=== PATIENT | male | born 1945 | race Caucasian/White ===

== ENCOUNTER 2016-02-29 10:00 | Outpatient (RCR) | payer MEDICARE, MEDICAID ==
[~2016-02-29 10:00] MED LIST: AC325T PO; AML2.5T PO; Amlodipine Besylate PO; CEFD300C PO; CELE200C PO; CLCX100C; CLOP75TA PO; CYCL10TA45; DCS100C PO; ENEMA RC; ENXP40I.4 SC; GABA300T PO; LORA10TA7 PO; MENT118G TP; METO100T2 PO; Metoprolol Succinate PO; NA P133E35 PR; ONDN4T PO; PRCD5U PO; PROM30SOLN PO; TR1C15 TOP; TRAM50TA2 PO
--- OUTSIDE RECORDS SUMMARY | 2016-02-29 10:34 | XMS REPORT | Continuity of Care Document ---
Author Author [facility] Organization [facility] Address Unknown Phone Unavailable Care Team Providers Care Marine Consultant Name Role Phone AMY DENNEY DO PCP Insurance Providers Payer Name Policy Number Subscriber Name Relationship Wps Medicare [id number] Amy Rios 18 Self / Same As Patient [facility] [employer] [id number] Amy Rios 18 Self / Same As Patient Advance Directives Directive Response Recorded Date/Time Advance Directives No 06/30/14 8:43am Health Care Power of Power Cutting Machine Operator No 06/30/14 8:43am Organ Donor No 06/30/14 8:43am Resuscitation Status Full Code 06/30/14 8:43am Problems Medical Problems Problem Onset Date Status Third degree heart block Unknown Active difficulty in walking and inability to get around 12/23/2013 Active Medications Medication Dose Route Sig Days/Qty Instructions Order Date Discontinued Date Status Cyclobenzaprine HCl 04/14/06 10/05/08 Discontinued Celecoxib 04/14/06 12/20/13 Discontinued Gabapentin (Neurontin) 900 Mg PO BEDTIME TAKES 3 (300MG) CAPSULES 10/05 Active Docusate Sodium 100 Mg PO DAILY 12/20/13 Active Celecoxib 200 Mg PO DAILY 12/20/13 01/11/14 Discontinued Acetaminophen 650 Mg PO GIVE EVERY 6 HR ON SCHEDULE PRN MILD PAIN 30 Qty 12/23/13 06/27/14 Discontinued [Amlodipine Besylate] 10 Mg PO DAILY 30 Qty 12/23/13 06/27/14 Discontinued Cefdinir 300 Mg PO TWICE A DAY 10 Qty 12/23/13 01/11/14 Discontinued Enoxaparin Sodium 40 Mg SC BEDTIME 30 Qty 12/23/13 01/11/14 Discontinued [Metoprolol Succinate] 100 Mg PO DAILY 30 Qty 12/23/13 06/27/14 Discontinued Celecoxib 200 Mg PO DAILY 06/27/14 Active Loratadine 10 Mg PO DAILY PRN ALLERGIES 06/27/14 Active Amlodipine Besylate 2.5 Mg PO DAILY 06/27/14 Active Metoprolol Tartrate (Lopressor) 50 Mg PO TWICE A DAY 06/27/14 Active Tramadol Hcl 50 Mg PO 0400, 1200, 2000 06/27/14 Active Acetaminophen 650 Mg PO EVERY 6 HOURS PRN PAIN TAKES 2 (325MG) TABLETS 06/27/14 Active [Enema] 1 Appful RC DAILY PRN CONSTIPATION 06/27/14 06/30/14 Discontinued Promethazine Hcl 5 Ml PO EVERY 6 HOURS PRN COUGH 06/27/14 Active Promethazine/Codeine 10 Ml PO EVERY 8HRS PRN COUGH 06/27/14 Active Ondansetron Hcl 4 Mg PO EVERY 6 HOURS PRN NAUSEA/VOMITING 06/27/14 Active Menthol TP EVERY 6 HOURS PRN PAIN APPLY TO LOWER BACK 06/27/14 Active Triamcinolone Acetonide (Kenalog 0.1% Cream) TOP NEEDED PRN RASH CANDIDIASIS OF SKIN AND NAILS 06/27/14 Active Clopidogrel Bisulfate 1 Each PO DAILY 60 Qty 06/28/14 06/30/14 Discontinued Clopidogrel Bisulfate 75 Mg PO DAILY 06/30/14 Active Sod Phosphate/Sod Biphosphate 1 Ea [place] DAILY PRN CONSTIPATION Active Social History Social History Problem Response Recorded Date/Time Alcohol Use Denies Use 12/23/2013 4:00pm Recreational Drug Use No 12/23/2013 4:00pm Recent Foreign Travel No 06/30/2014 8:45am Sexually Transmitted Disease Y CLAP AT AGE 15 12/23/2013 4:00pm Smoking Status Former Smoker 06/30/2014 8:44am Do you dip or chew tobacco? No 06/30/2014 8:44am Query Response Start Date Stop Date Smoking Status Former Smoker 06/27/2006 Hospital Discharge Instructions Patient Instructions Physician Instructions Follow Up/Plan 1. patient will follow-up with Dr. rollins's clinic in about a month. 2. Patient will need to followup with PCP 3. She wanted to fluoroscopy. Primary crm technical lead, Dr. Mae. 4. Results from ultrasound will be CC to Dr. Iniguez and also to his primary care physician CARDIAC CATH DISCHARGE INSTRUCTIONS Cardiac Rehab Please be expecting a follow up call from Cardiac Rehab within in one week. *Hold Metformin for 48 hours post heart cath. ACTIVITY * Go Home directly and rest. * Limit activity of the leg (or wrist if it was used) for 7 days including aerobics, swimming, jogging, bicycling, etc. * Restrict stair-climbing for 7 days if possible, if not, climb up with your non-cath leg, then bring together on the same step. * Avoid lifting, pushing, pulling or excessive movement of the affected extremity for 7 days. * Customary sexual activity may be resumed after 2 days-use caution not to use a position that strains or causes pain to the affected extremity. * No driving for 24 hours. * NO SMOKING. * Avoid straining for bowel movements for 7 days. * Gentle walking on level ground is allowed. * Returning to work will depend on the type of procedure and the results. Your doctor will discuss this with you. CALL YOUR DOCTOR FOR ANY OF THE FOLLOWING: *If bleeding from the puncture site occurs- Apply gentle pressure to site with clean cloth and call your doctor or EMS. * If a knot or lump forms under the skin, increases in size, or causes pain. * If bruising appears to be worsening or moving further down your leg instead of disappearing. * Temperature above 101 F. CARE OF YOUR GROIN INCISION; * Bruising or purple discoloration of the skin near the puncture site is common. * You may shower only, no bathtub bathing for 5 days. Be careful to avoid slipping as your leg may feel stiff. * If a closure device was used on your femoral artery, please see the attached guide regarding care of the device and your leg. * REMOVE the dressing from your groin the next day after your procedure in the shower. CARE OF YOUR WRIST INCISION; * Bruising or purple discoloration of the skin near the puncture site is common. * You may shower. * DO NOT submerge wrist. * Remove dressing in 24 hours. Plan of Care Discharge Date 07/01/14 3:25pm Disposition 05 XFER OTHER Instructions/Education Provided CARDIAC CATH DISCHARGE INSTRUC Forms Provided PDI Cardiac Cath Prescriptions See Medications Section Referrals AMY DENNEY DO (Unspecified) 2 Weeks Address: [address] [place] [address] [phone] Reason(s) for Referral: CALL TO MAKE APPOINTMENT: [phone] RAMANA MAE MD FACP FACC CCDS (Unspecified) 2 Weeks Address: [address] [facility], [address] [place] [address] Reason(s) for Referral: FOLLOW UP APPOINTMENT FOR RECENT PACEMAKER PLACEMENT. CALL FOR APPOINTMENT. Care Plan and Goals Return to hospital if bleeding Functional Status Query Response Date Recorded Comprehension Ability Understands Concepts July 01, 2014 8:00am Allergies, Adverse Reactions, Alerts Allergen Type Severity Reaction Status Last Updated No Known Drug Allergies Active 12/20/13 Immunizations Name Given Type Date of Pneumonia Vaccine 12/21/13 Historical Date of Influenza Vaccine 12/21/13 Historical Vital Signs Acute Vital Signs Vital Response Date/Time Temperature (Fahrenheit) 98.6 degrees F (97.6 - 99.5) Temperature (Calculated Celsius) 37.64070 degrees C (36.4 - 37.5) Temperature Source Temporal Pulse Rate (adult) 64 bpm (60 - 90) Respiratory Rate 18 bpm (12 - 24) O2 Sat by Pulse Oximetry 94 % (88 - 100) Blood Pressure 127/70 mm Hg Pain Pain Intensity 3 Height (Feet) 5 feet Height (Inches) 11.00 inches Height (Calculated Centimeters) 180.076892 cm Weight (Pounds) 174 pounds Weight (Ounces) 11.0 oz Weight (Calculated Grams) 29697.918 gm Weight (Calculated Kilograms) 79.403239 kilograms Calculated BMI 24.40 Results Laboratory Results Test Name Result Units Flags Reference Collection Date/Time Result Date/ Time Comments White Blood Count 8.6 10^3/uL 4.3-11.0 06/28/2014 6:59am 06/28/2014 7: 17am Red Blood Count 5.33 10^6/uL 4.35-5.85 06/28/2014 6:59am 06/28/2014 7: 17am Hemoglobin 15.0 G/DL 13.3-17.7 06/28/2014 6:59am 06/28/2014 7:17am Hematocrit 45 % 40-54 06/28/2014 6:59am 06/28/2014 7:17am Mean Corpuscular Volume 85 FL 80-99 06/28/2014 6:59am 06/28/2014 7: 17am Mean Corpuscular Hemoglobin 28 PG 25-34 06/28/2014 6:59am 06/28/2014 7: 17am Mean Corpuscular Hemoglobin Concent 33 G/DL 32-36 06/28/2014 6:59am 7:17am Red Cell Distribution Width 13.8 % 10.0-14.5 06/28/2014 6:59am 2014 7:17am Platelet Count 179 10^3/uL 130-400 06/28/2014 6:59am 06/28/2014 7:17am Mean Platelet Volume 10.1 FL 7.4-10.4 06/28/2014 6:59am 06/28/2014 7: 17am Prothrombin Time 13.1 SEC 12.2-14.7 06/27/2014 7:10am 06/27/2014 7: 30am INR Comment 1.0 0.8-1.4 06/27/2014 7:10a06/27/2014 7:30am INTERPRETIVE DATA SUGGESTED THERAPEUTIC RANGE FOR INR'S: VENOUS THROMBOSIS, PULMONARY EMBOLISM, OR PREVENTION OF SYSTEMIC EMBOLISM (EG. IN ATRIAL FIBRILLATION): 2.0 - 3.0 MECHANICAL PROSTHETIC HEART VALVES: 2.5 - 3.5* *NOTE: INR'S UP TO 4.5 MAY BE NECESSARY IN SELECTED GROUPS OF HIGH RISK PATIENTS. [place] [place] [employer] OF CHEST PHYSICIANS CONSENSUS CONFERENCE ON ANTITHROMBOTIC THERAPY (2000). Activated Partial Thromboplast Time 27 SEC 24-35 06/27/2014 7:10am 7:30am Sodium Level 142 MMOL/L 135-145 06/28/2014 6:59am 06/28/2014 7:28am Potassium Level 4.1 MMOL/L 3.6-5.0 06/28/2014 6:59am 06/28/2014 7:28am Chloride Level 107 MMOL/L 98-107 06/28/2014 6:59am 06/28/2014 7:28am Carbon Dioxide Level 23 MMOL/L 21-32 06/28/2014 6:59am 06/28/2014 7: 28am Blood Urea Nitrogen 11 MG/DL 7-18 06/28/2014 6:59am 06/28/2014 7:28am Creatinine 0.77 MG/DL 0.60-1.30 06/28/2014 6:59am 06/28/2014 7:28am BUN/Creatinine Ratio 14 06/28/2014 6:59am 06/28/2014 7:28am Estimat Glomerular Filtration Rate > 60 06/28/2014 6:59am 2014 7:28am GFR INTERPRETIVE DATA UNITS FOR ESTIMATED GFR (eGFR): mL/min/1.73 M2 REFERENCE RANGE FOR ESTIMATED GFR (eGFR) eGFR NORMAL eGFR >60 MODERATELY DECREASED eGFR 30-59 SEVERLY DECREASED eGFR 15-29 KIDNEY FAILURE <15 (OR DIALYSIS) Glucose Level 93 MG/DL 70-105 06/28/2014 6:59am 06/28/2014 7:28am Calcium Level 8.9 MG/DL 8.5-10.1 06/28/2014 6:59am 06/28/2014 7:28am Total Bilirubin 0.6 MG/DL 0.1-1.0 06/28/2014 6:59am 06/28/2014 7:28am Alkaline Phosphatase 60 U/L 40-136 06/28/2014 6:59am 06/28/2014 7:28am Aspartate Amino Transf (AST/SGOT) 18 U/L 5-34 06/28/2014 6:59am 2014 7:28am Alanine Aminotransferase (ALT/SGPT) 18 U/L 0-55 06/28/2014 6:59am 06/28 7:28am Total Protein 7.1 G/DL 6.4-8.2 06/28/2014 6:59am 06/28/2014 7:28am Albumin 3.8 G/DL 3.2-4.5 06/28/2014 6:59am 06/28/2014 7:28am Triglycerides Level 154 MG/DL H <150 06/27/2014 7:10am 06/27/2014 7:42am Cholesterol Level 130 MG/DL < 200 06/27/2014 7:10a06/27/2014 7:42am HDL Cholesterol 35 MG/DL L 40-60 06/27/2014 7:10am 06/27/2014 7:42am LDL Cholesterol Direct 73 MG/DL 1-129 06/27/2014 7:10am 06/27/2014 7: 42am VLDL Cholesterol 31 MG/DL 5-40 06/27/2014 7:10am 06/27/2014 7:42am White Blood Count 10.0 10^3/uL 4.3-11.0 07/01/2014 4:45am 07/01/2014 5: 06am Red Blood Count 4.01 10^6/uL L 4.35-5.85 07/01/2014 4:45am 07/01/2014 5: 06am Hemoglobin 11.2 G/DL #L 13.3-17.7 07/01/2014 4:45am 07/01/2014 5:06am Hematocrit 35 % L 40-54 07/01/2014 4:45am 07/01/2014 5:06am Mean Corpuscular Volume 87 FL 80-99 07/01/2014 4:45am 07/01/2014 5: 06am Mean Corpuscular Hemoglobin 28 PG 25-34 07/01/2014 4:45am 07/01/2014 5: 06am Mean Corpuscular Hemoglobin Concent 32 G/DL 32-36 07/01/2014 4:45am 5:06am Red Cell Distribution Width 13.9 % 10.0-14.5 07/01/2014 4:45am 2014 5:06am Platelet Count 156 10^3/uL 130-400 07/01/2014 4:45am 07/01/2014 5:06am Mean Platelet Volume 10.2 FL 7.4-10.4 07/01/2014 4:45am 07/01/2014 5: 06am Prothrombin Time 13.6 SEC 12.2-14.7 06/30/2014 8:44am 06/30/2014 9: 18am INR Comment 1.1 0.8-1.4 06/30/2014 8:44am 06/30/2014 9:18am INTERPRETIVE DATA SUGGESTED THERAPEUTIC RANGE FOR INR'S: VENOUS THROMBOSIS, PULMONARY EMBOLISM, OR PREVENTION OF SYSTEMIC EMBOLISM (EG. IN ATRIAL FIBRILLATION): 2.0 - 3.0 MECHANICAL PROSTHETIC HEART VALVES: 2.5 - 3.5* *NOTE: INR'S UP TO 4.5 MAY BE NECESSARY IN SELECTED GROUPS OF HIGH RISK PATIENTS. [employer] [place] [employer]ST [employer]ICIANS CONSENSUS CONFERENCE ON ANTITHROMBOTIC THERAPY (2000). Activated Partial Thromboplast Time 29 SEC 24-35 06/30/2014 8:44am 9:18am Urine Color YELLOW 06/30/2014 11:38am 06/30/2014 12:23pm Urine Clarity CLEAR 06/30/2014 11:38am 06/30/2014 12:23pm Urine pH 6 5-9 06/30/2014 11:38am 06/30/2014 12:23pm Urine Specific [place] 1.010 * 1.016-1.022 06/30/2014 11:38am 2014 12:23pm Urine Protein NEGATIVE NEGATIVE 06/30/2014 11:38am 06/30/2014 12: 23pm Urine Glucose (UA) NEGATIVE NEGATIVE 06/30/2014 11:38am 06/30/2014 12 :23pm Urine RBC (Auto) NEGATIVE NEGATIVE 06/30/2014 11:38am 06/30/2014 12: 23pm Urine Ketones NEGATIVE NEGATIVE 06/30/2014 11:38am 06/30/2014 12: 23pm Urine Nitrite NEGATIVE NEGATIVE 06/30/2014 11:38am 06/30/2014 12: 23pm Urine Bilirubin NEGATIVE NEGATIVE 06/30/2014 11:38am 06/30/2014 12: 23pm Urine Urobilinogen NORMAL MG/DL NORMAL 06/30/2014 11:38am 06/30/2014 12 :23pm Urine Leukocyte Esterase 2+ * NEGATIVE 06/30/2014 11:38am 06/30/2014 12 :23pm Urine RBC NONE /HPF 06/30/2014 11:38am 06/30/2014 12:23pm Urine WBC 5-10 /HPF * 06/30/2014 11:38am 06/30/2014 12:23pm Urine Bacteria FEW /HPF * 06/30/2014 11:38am 06/30/2014 12:23pm Urine Squamous Epithelial Cells 0-2 /HPF 06/30/2014 11:38am 2014 12:23pm Urine Crystals NONE /LPF 06/30/2014 11:38am 06/30/2014 12:23pm Urine Casts NONE /LPF 06/30/2014 11:38am 06/30/2014 12:23pm Urine Mucus NEGATIVE /LPF 06/30/2014 11:38am 06/30/2014 12:23pm Urine Culture Indicated YES 06/30/2014 11:38am 06/30/2014 12:23pm Sodium Level 140 MMOL/L 135-145 07/01/2014 4:45am 07/01/2014 5:32am Potassium Level 3.9 MMOL/L 3.6-5.0 07/01/2014 4:45am 07/01/2014 5:32am Chloride Level 109 MMOL/L H 98-107 07/01/2014 4:45am 07/01/2014 5:32am Carbon Dioxide Level 23 MMOL/L 21-32 07/01/2014 4:45am 07/01/2014 5: 32am Blood Urea Nitrogen 10 MG/DL 7-18 07/01/2014 4:45am 07/01/2014 5:32am Creatinine 0.69 MG/DL 0.60-1.30 07/01/2014 4:45am 07/01/2014 5:32am BUN/Creatinine Ratio 14 07/01/2014 4:45am 07/01/2014 5:32am Estimat Glomerular Filtration Rate > 60 07/01/2014 4:45am 2014 5:32am GFR INTERPRETIVE DATA UNITS FOR ESTIMATED GFR (eGFR): mL/min/1.73 M2 REFERENCE RANGE FOR ESTIMATED GFR (eGFR) eGFR NORMAL eGFR >60 MODERATELY DECREASED eGFR 30-59 SEVERLY DECREASED eGFR 15-29 KIDNEY FAILURE <15 (OR DIALYSIS) Glucose Level 93 MG/DL 70-105 07/01/2014 4:45am 07/01/2014 5:32am Calcium Level 8.1 MG/DL L 8.5-10.1 07/01/2014 4:45am 07/01/2014 5:32am Total Bilirubin 0.5 MG/DL 0.1-1.0 07/01/2014 4:45am 07/01/2014 5:32am Alkaline Phosphatase 59 U/L 40-136 07/01/2014 4:45am 07/01/2014 5:32am Aspartate Amino Transf (AST/SGOT) 21 U/L 5-34 07/01/2014 4:45am 2014 5:32am Alanine Aminotransferase (ALT/SGPT) 38 U/L 0-55 07/01/2014 4:45am 07/01 5:32am Total Protein 5.4 G/DL L 6.4-8.2 07/01/2014 4:45am 07/01/2014 5:32am Albumin 3.0 G/DL L 3.2-4.5 07/01/2014 4:45am 07/01/2014 5:32am Microbiology Results Procedure Source Result Collection Date/Time Result Date/Time Urine Culture Urine, Indwelling Cath (Freight Checker) GRAM NEGATIVE BABAK 2014 11:38am 07/01/2014 4:19pm KLEBSIELLA OXYTOCA 06/30/2014 11:38am 07/01/2014 4:19pm KLEBSIELLA OXYTOCA 06/30/2014 11:38am 07/01/2014 4:19pm Procedures Procedure Status Date Provider(s) Creation of femoropopliteal arterial bypass using graft completed 06/30/14 MARILIA MCNAIR MD Tracing only of electrocardiogram completed 06/27/14 MARILIA MCNAIR MD Encounters Encounter Location Date/Time Admitted Inpatient Via [facility] 06/30/14 3:30pm Departed Surgical Day Care Via [facility] 06/27/14 6:54am Registered Clinic Via [facility] 06/16/14 12:49pm
[2016-02-29 11:08] LABS: BASOPHILS % (AUTO) 0 % (0-10); EOSINOPHILS # (AUTO) 0.4 10^3/uL (0.0-0.3); EOSINOPHILS % (AUTO) 5 % (0-10); LYMPHOCYTES # (AUTO) 1.6 X 10^3 (1.0-4.0); LYMPHOCYTES % (AUTO) 18 % (12-44); MEAN CORPUSCULAR HEMOGLOBIN 29 PG (25-34); MEAN CORPUSCULAR HGB CONC 33 G/DL (32-36); MEAN CORPUSCULAR VOLUME 86 FL (80-99); MEAN PLATELET VOLUME 9.9 FL (7.4-10.4); MONOCYTES # (AUTO) 1.3 X 10^3 (0.0-1.0); MONOCYTES % (AUTO) 15 % (0-12); NEUTROPHILS # (AUTO) 5.2 X 10^3 (1.8-7.8); NEUTROPHILS % (AUTO) 62 % (42-75); PLATELET COUNT 173 10^3/uL (130-400); RED BLOOD COUNT 4.85 10^6/uL (4.35-5.85); RED CELL DISTRIBUTION WIDTH 13.7 % (10.0-14.5); WHITE BLOOD COUNT 8.5 10^3/uL (4.3-11.0)
--- NOTE | 2016-02-29 11:56 | Diagnostic Imaging Report ---
AP view of the chest. INDICATION: Cough and congestion. FINDINGS: The lungs are hyperinflated and clear. The heart size is normal. No effusion or pneumothorax. The mediastinum and kim appear unremarkable. There is a pacemaker with two cardiac leads seen. IMPRESSION: Hyperinflated clear lungs. Dictated by: Dictated on workstation # [id number]
--- OUTSIDE RECORDS SUMMARY | 2016-02-29 22:52 | XMS REPORT | Continuity of Care Document ---
Author Author [facility] Organization [facility] Address Unknown Phone Unavailable Care Team Providers Care Addiction Nurse Name Role Phone AMY DENNEY DO PCP Insurance Providers Payer Name Policy Number Subscriber Name Relationship Wps Medicare [id number] Amy Rios 18 Self / Same As Patient [facility] [employer] [id number] Amy Rios 18 Self / Same As Patient Advance Directives Directive Response Recorded Date/Time Advance Directives No 06/30/14 8:43am Health Care Power of Steam Pressure Chamber Operator No 06/30/14 8:43am Organ Donor No [...] 06/30/14 Active Sod Phosphate/Sod Biphosphate 1 Ea MD DAILY PRN CONSTIPATION Active Social History Social [...] PCP 3. She wanted to fluoroscopy. Primary plant protection guard, Dr. Mae. 4. Results from ultrasound will [...] (Unspecified) 2 Weeks Address: [address] [place] [address] [phone] Reason(s) for Referral: CALL TO MAKE APPOINTMENT: [phone] RAMANA MAE MD FACP FACC CCDS (Unspecified) 2 Weeks Address: [address] [facility], [address] [place] [address] Reason(s) for Referral: FOLLOW UP [...] F (97.6 - 99.5) Temperature (Calculated Celsius) 37.14513 degrees C (36.4 - 37.5) Temperature Source Temporal Pulse Rate (adult) 64 bpm (60 - 90) Respiratory Rate 18 bpm (12 - 24) O2 Sat by Pulse Oximetry 94 % (88 - 100) Blood Pressure 127/70 mm Hg Pain Pain Intensity 3 Height (Feet) 5 feet Height (Inches) 11.00 inches Height (Calculated Centimeters) 180.691578 cm Weight (Pounds) 174 pounds Weight (Ounces) 11.0 oz Weight (Calculated Grams) 21613.918 gm Weight (Calculated Kilograms) 79.839284 kilograms Calculated BMI 24.40 Results Laboratory Results [...] SELECTED GROUPS OF HIGH RISK PATIENTS. [employer] CONSENSUS CONFERENCE ON [...] SELECTED GROUPS OF HIGH RISK PATIENTS. [employer] [place] [employer] CONSENSUS CONFERENCE ON ANTITHROMBOTIC THERAPY (2000). Activated Partial Thromboplast Time 29 SEC 24-35 06/30/2014 8:44am 9:18am Urine Color YELLOW 06/30/2014 11:38am 06/30/2014 12:23pm Urine Clarity CLEAR 06/30/2014 11:38am 06/30/2014 12:23pm Urine pH 6 5-9 06/30/2014 11:38am 06/30/2014 12:23pm Urine Specific [place] 1.010 * 1.016-1.022 06/30/2014 11:38am 2014 12:23pm [...] Result Date/Time Urine Culture Urine, Indwelling Cath (Chinchilla Machine Operator) GRAM NEGATIVE BABAK 2014 11:38am 07/01/2014 4:19pm KLEBSIELLA OXYTOCA 06/30/2014 11:38am 07/01/2014 4:19pm KLEBSIELLA OXYTOCA 06/30/2014 11:38am 07/01/2014 4:19pm Procedures Procedure Status Date Provider(s) Creation of femoropopliteal arterial bypass using graft completed 06/30/14 MARILIA MCNAIR MD Tracing only of electrocardiogram completed 06/27/14 MARILIA MCNAIR MD Encounters Encounter Location Date/Time Admitted Inpatient Via [facility] 06/30/14 3:30pm Departed Surgical Day Care Via [facility] 06/27/14 6:54am Registered Clinic Via [facility] 06/16/14 12:49pm
== END 2016-05-29 | disposition home or self-care (01) ==
LOC: LAB 10:00 → RAD 10:29 → EDSTATUS 22:48
PROVIDERS: ATTEND Family Medicine
DX: R05 Cough (principal); R50.9 Fever, unspecified
CPT/HCPCS: 36415; 71010; 85025

== ENCOUNTER → 2016-06-17 | Outpatient (CLI) | payer MEDICARE, MEDICAID ==
--- NOTE | 2016-06-20 07:18 | ECHOCARDIOGRAPHY REPORT ---
DATE OF SERVICE: 06/17/2016 ECHOCARDIOGRAM ORDERING PHYSICIAN: Dr. Gil. PRIMARY PHYSICIAN: Dr. Reyes CLINICAL DIAGNOSIS: Shortness of breath. MEASUREMENTS: Left atrium 4.1. Aortic root 3.6. LV diameter diastolic 5.1 IVS thickness, diastolic 1. DESCRIPTION: Two-dimensional echocardiography shows well-preserved global left ventricular systolic function. There appears to be paradoxical septal motion. There is mild mitral annular calcification. There is no significant pericardial effusion. Doppler imaging shows trivial tricuspid regurgitation. There is no Doppler evidence of any significant valvular stenosis. Mitral inflow pattern is suggestive of grade II diastolic dysfunction of left ventricle. Inferior vena cava appears to be of normal size and does exhibit inspiratory collapse. Subcostal views are difficult. On the views available, there is no distinct evidence of any significant intracardiac shunt. Echo dense structures within the right heart are consistent with pacemaker lead/leads. CONCLUSIONS: 1. Well preserved global left ventricular systolic function with ejection fraction of 55 to 60%. 2. Paradoxical septal motion. 3. Mild enlargement of the left atrium. 4. Moderate diastolic dysfunction of left ventricle. 5. Trivial tricuspid regurgitation. 6. Mild mitral annular calcification without evidence of valvular stenosis. 7. Pulmonary artery systolic pressure is estimated to be 25 to 30 mmHg. Job ID: [id number] DocumentID: [id number] Dictated Date: 06/19/2016 14:23:46 Wedding Designer Date: 06/19/2016 15:01:30 Dictated By: RAMANA GIL MD, MA, FACP, FACC,
== END ==
LOC: CARD 08:58
PROVIDERS: ATTEND Internal Medicine Cardiovascular Disease
DX: R06.02 Shortness of breath (principal); R26.89 Other abnormalities of gait and mobility; I71.4 Abdominal aortic aneurysm, without rupture; I73.89 Other specified peripheral vascular diseases; I10 Essential (primary) hypertension; I44.2 Atrioventricular block, complete; Z95.0 Presence of cardiac pacemaker
CPT/HCPCS: 93306

== ENCOUNTER → 2016-06-18 | Outpatient (CLI) | payer MEDICARE, MEDICAID | LOC: RAD 12:56 | PROVIDERS: ATTEND Internal Medicine Cardiovascular Disease | DX: I73.89 Other specified peripheral vascular diseases (principal); I10 Essential (primary) hypertension; I44.2 Atrioventricular block, complete; R06.02 Shortness of breath; R26.89 Other abnormalities of gait and mobility; I71.4 Abdominal aortic aneurysm, without rupture; Z95.0 Presence of cardiac pacemaker | CPT/HCPCS: 93923 ==

== ENCOUNTER → 2016-06-20 | Outpatient (CLI) | payer MEDICARE, MEDICAID ==
[~2016-06-20] VITALS: Ht 180.3 cm; Wt 83.5 kg
[~2016-06-20] MED LIST changes: +CATHETER FLUSH 10 ML SYR IV PRN; +REGADENOSON 0.4 MG/5 ML SYR (LEXISCAN) IV ONE
[2016-06-20 09:25] VITALS: BP 116/85
--- NOTE | 2016-06-20 12:57 | STRESS TEST ---
DATE OF SERVICE: 06/20/2016 PROCEDURE: Resting and post regadenoson technetium-00m tetrofosmin SPECT CT imaging. CLINICAL DIAGNOSIS: Shortness of breath, peripheral arterial disease, status post pacemaker. Baseline images were carried out after injection of 10.83 mCi of technetium-99m tetrofosmin. This was followed by 0.4 mg OF regadenoson and 30.5 mCi of technetium-99m tetrofosmin for stress imaging. The electrocardiogram showed sinus rhythm with a paced ventricular rhythm throughout the study. Occasional isolated premature ventricular contractions were seen. He tolerated the procedure well. Review of images at rest and following stress shows a fixed inferoapical perfusion defect. There is inferoapical hypokinesis. Left ventricular ejection fraction is calculated to be 61%. Left ventricular end diastolic volume is 45 mL. TID is absent (0.94). CONCLUSIONS: 1. Inferoapical myocardial infarction is suggested on this study. 2. No evidence of myocardial ischemia. 3. Inferoapical hypokinesis. 4. Well preserved global left ventricular systolic function with a calculated ejection fraction of 61%. 5. Normal left ventricular cavity size. Job ID: [id number] DocumentID: [id number] Dictated Date: 06/20/2016 11:41:43 Pediatrics Physician Date: 06/20/2016 12:29:57 Dictated By: RAMANA MAE MD, MA, FACP, FACC,
== END ==
LOC: CARD 07:54
PROVIDERS: ATTEND Internal Medicine Cardiovascular Disease
DX: I71.4 Abdominal aortic aneurysm, without rupture (principal); I73.89 Other specified peripheral vascular diseases; I10 Essential (primary) hypertension; I44.2 Atrioventricular block, complete; R26.89 Other abnormalities of gait and mobility; R06.02 Shortness of breath; Z95.0 Presence of cardiac pacemaker
CPT/HCPCS: 78452; 93017

== ENCOUNTER → 2016-06-21 | Outpatient (CLI) | payer MEDICARE, MEDICAID ==
[~2016-06-21] MED LIST changes: -CATHETER FLUSH 10 ML SYR IV PRN; -REGADENOSON 0.4 MG/5 ML SYR (LEXISCAN) IV ONE
[2016-06-21 20:14] LABS: BILIRUBIN,URINE NEGATIVE (NEGATIVE); KETONES,URINE NEGATIVE (NEGATIVE); LEUKOCYTE ESTERASE ,URINE 3+ (NEGATIVE); NITRITE,URINE POSITIVE (NEGATIVE); PH,URINE 6 (5-9); PROTEIN,URINE 3+ (NEGATIVE); UROBILINOGEN,URINE 1 MG/DL (NORMAL)
[2016-06-21 20:26] LABS: WBC,URINE >100 /HPF
== END ==
PROVIDERS: ATTEND Family Medicine
DX: N39.0 Urinary tract infection, site not specified (principal)
CPT/HCPCS: 81000; 87077; 87088; 87186

== ENCOUNTER 2016-08-08 07:40 | Emergency (ER) | payer MEDICARE, MEDICAID ==
[~2016-08-08] VITALS: Ht 175.3 cm; Wt 79.8 kg
[2016-08-08] MEDS ORDERED: LACTATED RINGERS 1,000 ML IV ONE (07:42)
[2016-08-08] MEDS ORDERED: ACETAMINOPHEN 500 MG TAB (TYLENOL) PO ONE (07:45)
[2016-08-08] MEDS ORDERED: ONDANSETRON 4 MG/2 ML (SDV) Z0FRAN IVP ONE (07:45)
--- NOTE | 2016-08-08 07:59 | ED General ---
General Chief Complaint: Fever-Adult/Adol Stated Complaint: FEVER Source of Information: Patient (SOMEWHAT LIMITED HISTORIAN), EMS, [facility] Records History of Present Illness Time Seen by Provider: 07:38 Initial Comments PT ARRIVES VIA EMS FROM [facility] PT BEGAN HAVING NAUSEA AND VOMITING AT 0545 THIS AM NO ABDOMINAL PAIN NO DIARRHEA STATES HE FEELS FINE NOW--DID NOT GET ANY MEDICATIONS FROM [facility] THIS AM PT ALSO HAD FEVER OF 102.5 -102.8 AT [facility]--NOT TREATED OTHER VITALS ARE ESSENTIALLY NORMAL, EXCEPT FOR MILD TACHYCARDIA IN 110'S PT DENIES COUGH DENIES CHEST PAIN OR SHORTNESS OF BREATH NO URINARY SYMPTOMS, BUT PT HAS FREQUENT UTI'S AND CHRONIC BPH, AND DOES INTERMITTENT SELF-URINARY CATHETERIZATIONS DUE TO ENLARGED PROSTATE SENIOR CARE PAPERS STATE THAT HE IS CONFUSED THIS AM WELL, WITH NO HISTORY OF DEMENTIA PCP: DR. DENNEY Allergies and Home Medications Allergies Coded Allergies: No Known Drug Allergies (Verified , 12/20/13) Home Medications Acetaminophen 325 Mg Tab, 650 MG PO Q6H PRN for PAIN, (Reported) TAKES 2 (325MG) TABLETS Amlodipine Besylate 2.5 Mg Tab, 2.5 MG PO DAILY, (Reported) Celecoxib 200 Mg Capsule, 200 MG PO DAILY, (Reported) Clopidogrel Bisulfate 75 Mg Tablet, 75 MG PO DAILY, (Reported) Docusate Sodium 100 Mg Cap, 100 MG PO DAILY, (Reported) Gabapentin 300 Mg Tablet, 900 MG PO HS, (Reported) TAKES 3 (300MG) CAPSULES Loratadine 10 Mg Tablet, 10 MG PO DAILY PRN for ALLERGIES, (Reported) Menthol 118 Ml Gel..ml., TP Q6H PRN for PAIN, (Reported) APPLY TO LOWER BACK Metoprolol Tartrate 100 Mg Tablet, 50 MG PO BID, (Reported) TAKES 1/2 (100MG) TABLET Ondansetron Hcl 4 Mg Tab, 4 MG PO Q6H PRN for NAUSEA/VOMITING, (Reported) Promethazine Hcl 6.25 Mg/5 Ml Syrup, 5 ML PO Q6H PRN for COUGH, (Reported) Promethazine/Codeine 5 Ml Syrp, 10 ML PO Q8H PRN for COUGH, (Reported) Sod Phosphate/Sod Biphosphate 1 Ea Enem, 1 EA TN DAILY PRN for CONSTIPATION, ( Reported) Tramadol Hcl 50 Mg Tablet, 50 MG PO 0400, 1199, 1999, (Reported) Triamcinolone Acet 15 Gm Cr, TOP PRN PRN for RASH, (Reported) APPLY TO FACE TOPICALLY NEEDED FOR SKIN CONDITION- RASH RELATED TO CANDIDIASIS OF SKIN AND NAILS Constitutional: see HPI, fever EENTM: no symptoms reported Respiratory: no symptoms reported Cardiovascular: no symptoms reported Gastrointestinal: see HPI, No abdominal pain, No constipation, No diarrhea, nausea, vomiting Genitourinary: no symptoms reported, see HPI Musculoskeletal: no symptoms reported Skin: no symptoms reported Psychiatric/Neurological: See HPI Hematologic/Lymphatic: No Symptoms Reported Immunological/Allergic: no symptoms reported Past Qxlnxhp-Hkklil-Rxfoiv Hx Patient Social History Smoking Status: Unknown if Ever Smoked Recent Foreign Travel: No Contact w/Someone Who Travel: No Immunizations Up To Date Date of Pneumonia Vaccine: Dec 21, 2013 Date of Influenza Vaccine: Dec 21, 2013 Seasonal Allergies Seasonal Allergies: Yes Surgeries HX Surgeries: Yes (gallbladder removed april 2006, hernia's removed ) Surgeries: Abdominal, Gallbladder, Pacemaker Respiratory Hx Respiratory Disorders: Yes (CHRONIC COUGH) Cardiovascular Hx Cardiac Disorders: Yes (3rd degree heart block, Pacemaker placed; AAA--NO REPAIR) Cardiac Disorders: Aneurysm, Hypertension Neurological Hx Neurological Disorders: Yes Neurological Disorders: Cerebral Palsy Reproductive System Hx Reproductive Disorders: No Sexually Transmitted Disease: Yes (CLAP AT AGE 15) Genitourinary Hx Genitourinary Disorders: Yes (SELF-CATHETERIZES DUE TO INABILITY TO URINATE ON OWN D/T ENLARGED PROSTATE) Genitourinary Disorders: Prostate Problems, UTI-Chronic Gastrointestinal Hx Gastrointestinal Disorders: Yes (CONSTIPATION; S/P ROSIE) Gastrointestinal Disorders: Gastroesophageal Reflux, Chronic Constipation, Gall Bladder Disease Musculoskeletal Hx Musculoskeletal Disorders: Yes (CHRONIC PAIN AND WEAKNESS; CEREBRAL PALSY; IMPAIRED MOBILITY) Musculoskeletal Disorders: Arthritis Endocrine Hx Endocrine Disorders: No HEENT HX ENT Disorders: Yes HEENT Disorders: Cataract, Glaucoma Cancer Hx Cancer: No Psychosocial Hx Psychiatric Problems: No Integumentary HX Skin/Integumentary Disorder: Yes (CANDIDIASIS OF SKIN AND NAIL) Blood Transfusions Hx Blood Disorders: No Family Medical History Family Medial History: FH: throat cancer 19 MOTHER Physical Exam Vital Signs Vital Sign - Last 12Hours 08/08/16 07:40 Temp 100.6 Pulse 98 Resp 20 B/P (MAP) 109/74 Pulse Ox 97 O2 Delivery Room Air Capillary Refill : General Appearance: No Apparent Distress, WD/WN, Other (MILDLY LETHARGIC) Neck: Full Range of Motion, Normal Inspection, Non Tender, Supple Respiratory: Normal Breath Sounds, No Accessory Muscle Use, No Respiratory Distress, Decreased Breath Sounds (ON LEFT BASE, WITH RALES), Rales (LEFT BASE) Cardiovascular: Regular Rate, Rhythm, No Murmur, Normal Peripheral Pulses Gastrointestinal: Normal Bowel Sounds, No Organomegaly, No Pulsatile Mass, Soft , Distended (SLIGHTLY), Tenderness (MILD EPIGASTRIC TENDERNESS) Back: No CVA Tenderness Extremity: Normal Capillary Refill, Non Tender, No Calf Tenderness, Pedal Edema (TRACE BILATERALLY) Neurologic/Psychiatric: Alert, No Motor/Sensory Deficits, Normal 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 ) Skin: Normal Color, Warm/Dry Focused Exam Lactic Acid Level Progress/Results/Core Measures Results/Orders Lab Results Laboratory Tests Test 08/08/16 07:45 08/08/16 08:00 08/08/16 09:45 Range/Units White Blood Count 15.3 H 4.3-11.0 10^3/uL Red Blood Count 5.16 4.35-5.85 10^6/uL Hemoglobin 14.7 13.3-17.7 G/DL Hematocrit 45 40-54 % Mean Corpuscular Volume 87 80-99 FL Mean Corpuscular Hemoglobin 29 25-34 PG Mean Corpuscular Hemoglobin Concent 33 32-36 G/DL Red Cell Distribution Width 14.7 H 10.0-14.5 % Platelet Count 223 130-400 10^3/uL Mean Platelet Volume 10.1 7.4-10.4 FL Neutrophils (%) (Auto) 90 H 42-75 % Lymphocytes (%) (Auto) 2 L 12-44 % Monocytes (%) (Auto) 8 0-12 % Eosinophils (%) (Auto) 0 0-10 % Basophils (%) (Auto) 0 0-10 % Neutrophils # (Auto) 13.7 H 1.8-7.8 X 10^3 Lymphocytes # (Auto) 0.3 L 1.0-4.0 X 10^3 Monocytes # (Auto) 1.2 H 0.0-1.0 X 10^3 Eosinophils # (Auto) 0.0 0.0-0.3 10^3/uL Basophils # (Auto) 0.0 0.0-0.1 10^3/uL Neutrophils % (Manual) 88 % Lymphocytes % (Manual) 2 % Monocytes % (Manual) 6 % Band Neutrophils 4 % Blood Morphology Comment NORMAL Sodium Level 139 135-145 MMOL/L Potassium Level 4.6 3.6-5.0 MMOL/L Chloride Level 103 98-107 MMOL/L Carbon Dioxide Level 22 21-32 MMOL/L Anion Gap 14 5-14 MMOL/L Blood Urea Nitrogen 13 7-18 MG/DL Creatinine 0.84 0.60-1.30 MG/DL Estimat Glomerular Filtration Rate > 60 BUN/Creatinine Ratio 15 Glucose Level 121 H 70-105 MG/DL Lactic Acid Level 2.26 *H 2.73 *H 0.50-2.00 MMOL/L Calcium Level 8.8 8.5-10.1 MG/DL Magnesium Level 1.9 1.8-2.4 MG/DL Total Bilirubin 2.9 H 0.1-1.0 MG/DL Aspartate Amino Transf (AST/SGOT) 100 H 5-34 U/L Alanine Aminotransferase (ALT/SGPT) 95 H 0-55 U/L Alkaline Phosphatase 369 H 40-136 U/L Total Protein 7.5 6.4-8.2 GM/DL Albumin 3.5 3.2-4.5 GM/DL Amylase Level 1610 H 25-125 U/L Lipase 4554 H 8-78 U/L Urine Color YELLOW Urine Clarity CLEAR Urine pH 6 5-9 Urine Specific [place] 1.010 L 1.016-1.022 Urine Protein 1+ H NEGATIVE Urine Glucose (UA) NEGATIVE NEGATIVE Urine Ketones NEGATIVE NEGATIVE Urine Nitrite NEGATIVE NEGATIVE Urine Bilirubin NEGATIVE NEGATIVE Urine Urobilinogen NORMAL NORMAL MG/DL Urine Leukocyte Esterase 1+ H NEGATIVE Urine RBC (Auto) 2+ H NEGATIVE Urine RBC 0-2 /HPF Urine WBC 0-2 /HPF Urine Crystals NONE /LPF Urine Bacteria LARGE H /HPF Urine Casts NONE /LPF Urine Mucus NEGATIVE /LPF Urine Culture Indicated YES My Orders Orders - MILO GAMBOA DO Saline Lock/Iv-Start (08/08/16 07:42) Monitor-Rhythm Ecg Trace Only (08/08/16 07:42) Amylase (08/08/16 07:42) Cbc With Automated Diff (08/08/16 07:42) Comprehensive Metabolic Panel (08/08/16 07:42) Lactic Acid Analyzer (08/08/16 07:42) Lipase (08/08/16 07:42) Magnesium (08/08/16 07:42) Ua Culture If Indicated (08/08/16 07:42) Blood Culture (08/08/16 07:42) Chest 1 View, Ap/Pa Only (08/08/16 07:42) Saline Lock/Iv-Start (08/08/16 07:42) Lactated Ringers (Lr 1000 Ml Iv Solution (08/08/16 07:42) Ondansetron Injection (Zofran Injectio (08/08/16 07:45) Acetaminophen Tablet (Tylenol Tablet) (08/08/16 07:45) Manual Differential (08/08/16 07:45) Urine Culture (08/08/16 08:00) Ct Abdomen/Pelvis W (08/08/16 08:33) Iohexol Injection (Omnipaque 350 Mg/Ml 1 (08/08/16 08:45) Ns (Ivpb) (Sodium Chloride 0.9% Ivpb Bag (08/08/16 08:45) Piperacillin Sodium/Tazobactam (Zosyn Vi (08/08/16 09:45) Saline Lock/Iv-Start (08/08/16 09:54) Ns Iv 1000 Ml (Sodium Chloride 0.9%) (08/08/16 09:54) Medications Given in ED Current Medications Medications Dose Ordered Sig/Manuel Route Start Time Stop Time Status Last Admin Dose Admin Acetaminophen 1,000 mg ONCE ONCE PO 08/08/16 07:45 08/08/16 07:46 DC 08/08/16 08:00 1,000 MG Iohexol 100 ml ONCE ONCE IV 08/08/16 08:45 08/08/16 08:54 DC 08/08/16 08:53 100 ML Lactated Ringer's 1,000 ml @ 0 mls/hr Q0M ONCE IV 08/08/16 07:42 08/08/16 07:46 DC 08/08/16 07:59 0 MLS/HR Ondansetron HCl 4 mg ONCE ONCE IVP 08/08/16 07:45 08/08/16 07:46 DC 08/08/16 07:59 4 MG Piperacillin Sod/ Tazobactam Sod 4.5 gm/Sodium Chloride 100 ml @ 200 mls/hr ONCE ONCE IV 08/08/16 09:45 08/08/16 10:14 DC 08/08/16 10:08 200 MLS/HR Sodium Chloride 100 ml ONCE ONCE IV 08/08/16 08:45 08/08/16 08:54 DC 08/08/16 08:53 80 ML Sodium Chloride 1,000 ml @ 0 mls/hr Q0M ONCE IV 08/08/16 09:54 08/08/16 09:55 DC 08/08/16 10:09 0 MLS/HR Vital Signs/I&O Vital Sign - Last 12Hours 08/08/16 08/08/16 08/08/16 08/08/16 07:40 08:00 10:10 11:04 Temp 100.6 100.6 99.5 99.5 Pulse 98 95 85 Resp 20 18 18 B/P (MAP) 109/74 96/70 Pulse Ox 97 96 97 O2 Delivery Room Air Room Air Room Air Progress Note : Progress Note PT'S MENTATION IS IMPROVED TEMP COMES DOWN DURING ER STAY--PT HAS NO RECOLLECTION OF THIS AM'S EVENTS. STATES HE FEELS FINE, AND HAS NO COMPLAINTS. PT MORE ALERT AND TALKATIVE, KNOWS WHERE HE IS, KNOWS THAT HE IS GOING TO [place] AND WHY. HEART RATE DOWN, BP UP AND TEMP DOWN, WITH IMPROVED MENTATION AT TIME OF TRANSFER Diagnostic Imaging Comments CXR--NO ACUTE PROCESS, PER RADIOLOGIST REPORT CT ABDOMEN/PELVIS--LIKELY CBD STONE/FILLING DEFECT WITH INTRA AND EXTRA HEPATIC BILIARY DUCTAL DILATION , INTERVAL DEVELOPMENT OF AAA AT 5.7 X 5.1 CM WITH LARGE INTRAMURAL THROMBUS, ROUNDED DEFECT IN POSTERIOR URINARY BLADDER-- POSSIBLY FROM PROSTATE--PER RADIOLOGIST REPORT @ 0935 Reviewed: Reviewed by Me Departure Communication Progress Notes 0939--CALLED EARLY DIRECT CALL. MESSAGE LEFT ON MACHINE 0945--EARLY DIRECT CALL CALLED BACK. PAGING HOSPITALIST [phone]--SPOKE WITH DR. SALGADO, HOSPITALIST. ACCEPTS PT FOR ADMIT. Impression Impression: Primary Impression: Gallstone pancreatitis Additional Impressions: GALLSTONE HEPATITIS KNOWN AAA WITH DEVELOPMENT OF THROMBUS Sepsis UTI (urinary tract infection) Disposition: 02 XFER SHT-TRM HOSP Condition: Improved Departure-Patient Inst. Referrals: AMY DENNEY DO (PCP/Family) Primary Care Physician MILO GAMBOA DO Aug 08, 2016 07:59
[2016-08-08 08:04] LABS: BASOPHILS % (AUTO) 0 % (0-10); EOSINOPHILS % (AUTO) 0 % (0-10); LYMPHOCYTES # (AUTO) 0.3 X 10^3 (1.0-4.0); LYMPHOCYTES % (AUTO) 2 % (12-44); MEAN CORPUSCULAR HEMOGLOBIN 29 PG (25-34); MEAN CORPUSCULAR HGB CONC 33 G/DL (32-36); MEAN CORPUSCULAR VOLUME 87 FL (80-99); MEAN PLATELET VOLUME 10.1 FL (7.4-10.4); MONOCYTES # (AUTO) 1.2 X 10^3 (0.0-1.0); MONOCYTES % (AUTO) 8 % (0-12); NEUTROPHILS # (AUTO) 13.7 X 10^3 (1.8-7.8); NEUTROPHILS % (AUTO) 90 % (42-75); PLATELET COUNT 223 10^3/uL (130-400); RED BLOOD COUNT 5.16 10^6/uL (4.35-5.85); RED CELL DISTRIBUTION WIDTH 14.7 % (10.0-14.5); WHITE BLOOD COUNT 15.3 10^3/uL (4.3-11.0)
[2016-08-08 08:26] LABS: BILIRUBIN,URINE NEGATIVE (NEGATIVE); KETONES,URINE NEGATIVE (NEGATIVE); LEUKOCYTE ESTERASE ,URINE 1+ (NEGATIVE); NITRITE,URINE NEGATIVE (NEGATIVE); PH,URINE 6 (5-9); PROTEIN,URINE 1+ (NEGATIVE); UROBILINOGEN,URINE NORMAL (NORMAL)
[2016-08-08 08:27] LABS: WBC,URINE 0-2 /HPF
[2016-08-08 08:28] LABS: ALANINE AMINOTRANSFERASE 95 U/L (0-55); ALBUMIN 3.5 GM/DL (3.2-4.5); AMYLASE 1610 U/L (25-125); ANION GAP 14 MMOL/L (5-14); ASPARTATE AMINO TRANSFERASE 100 U/L (5-34); BILIRUBIN,TOTAL 2.9 MG/DL (0.1-1.0); BLOOD UREA NITROGEN 13 MG/DL (7-18); BUN/CREATININE RATIO 15; CALCIUM 8.8 MG/DL (8.5-10.1); CARBON DIOXIDE 22 MMOL/L (21-32); CHLORIDE 103 MMOL/L (98-107); CREATININE SERUM 0.84 MG/DL (0.60-1.30); GFR ESTIMATED > 60; GLUCOSE 121 MG/DL (70-105); MAGNESIUM 1.9 MG/DL (1.8-2.4); POTASSIUM 4.6 MMOL/L (3.6-5.0); SODIUM 139 MMOL/L (135-145); TOTAL PROTEIN 7.5 GM/DL (6.4-8.2)
[2016-08-08] MEDS ORDERED: IOHEXOL 350 MG/ML 100 ML (OMNIPAQUE 350) VIAL IV ONE (08:45)
[2016-08-08] MEDS ORDERED: NS 100 ML (IVPB) BAG IV ONE (08:45)
[2016-08-08 08:51] LABS: BAND NEUTROPHILS 4 %; LYMPHOCYTES % (MANUAL) 2 %; NEUTROPHILS % (MANUAL) 88 %
--- NOTE | 2016-08-08 08:52 | Diagnostic Imaging Report ---
EXAM: Upright portable radiograph of the chest. INDICATION: Fever. FINDINGS: The lungs are hyperinflated and clear. The heart size is normal. No effusion or pneumothorax. The mediastinum and kim appear markable. There is a pacemaker with 2 leads seen. IMPRESSION: Hyperinflated clear lungs. Dictated by: Dictated on workstation # [id number]
--- NOTE | 2016-08-08 09:29 | Diagnostic Imaging Report ---
PROCEDURE: CT abdomen and pelvis with contrast. TECHNIQUE: Multiple contiguous axial images were obtained through the abdomen and pelvis after administration of intravenous contrast. INDICATION: Abdominal pain. Diarrhea. COMPARISON: 04/14/2006. FINDINGS: Included views of the lung bases are clear. CT ABDOMEN: Patient is status post previous cholecystectomy. There has been interval development of moderate intra-and extrahepatic biliary ductal dilatation. Note is made of a rounded hyperdense filling defect within the lower portion of the common bile duct near the ampulla that measures approximately 8 mm in diameter (image 24, series 4). No focal hepatic or pancreatic mass type lesions are seen. The adrenal glands, spleen, and kidneys have a normal CT appearance. Since previous exam, there has been interval development of aneurysmal dilatation and infrarenal abdominal aorta. Aneurysm measures approximately 5.7 x 5.1 cm in length. There is a large amount of mural thrombus, posteriorly. There is no loculated fluid collection, free fluid, nor free air within the abdomen. No abnormal mesenteric or retroperitoneal adenopathy is seen. Bony structures show no acute abnormalities. Small bowel loops are nondistended. Normal appendix is identified. CT PELVIS: There is a small filling defect within the posterior urinary bladder, which may arise from the prostate. It measures approximately 2 cm in diameter. There is no loculated fluid collection, free fluid, or free air within the pelvis. No abnormal adenopathy is seen. Bony structures show no acute abnormalities. IMPRESSION: 1. Small rounded filling defect within the lower common bile near the ampulla. Findings could be on the basis of choledocholithiasis, but neoplasm cannot be excluded. Correlation with ERCP is recommended. 2. Interval development of moderate intra-and extra hepatic biliary ductal dilatation secondary to the above. 3. Interval development of abdominal aortic aneurysm with moderate mural thrombus as described above. 4. Rounded filling defect within the posterior urinary bladder, which again may arise from the prostate. Origin from the urinary bladder wall however cannot be excluded. Correlation with direct visualization is recommended. Dictated by: Dictated on workstation # [id number]
[2016-08-08 09:34] LABS: LIPASE 4554 U/L (8-78)
[2016-08-08] MEDS ORDERED: PIPERACILLIN SODIUM/TAZOBACTAM 4.5 GM in NS (IVPB) 100 ML IV ONE (09:45)
[2016-08-08] MEDS ORDERED: NS IV 1000 ML 1,000 ML IV ONE (09:54)
--- OUTSIDE RECORDS SUMMARY | 2016-08-08 10:21 | XMS REPORT | Continuity of Care Document ---
Author Author [facility] Organization [facility] Address Unknown Phone Unavailable Allergies Active Description Code Type Severity Reaction Onset Reported/Identified Relationship to Patient Clinical Status Yes No Known Drug Allergies [id number] Drug Allergy Unknown N/ A 12/20/2013 Medications Problems Date Dx Coded Attending Type Code Diagnosis Diagnosed By 12/23/2013 CARMELITA BEAN FACC, RAMANA FACP CCDS Ot 338.29 12/23/2013 CARMELITA BEAN FACC, ALI FACP CCDS Ot 343.9 12/23/2013 CARMELITA BEAN FACC, ALI FACP CCDS Ot 355.9 12/23/2013 CARMELITA BEAN FACC, ALI FACP CCDS Ot 426.0 12/23/2013 CARMELITA BEAN FACC, ALI FACP CCDS Ot 426.13 12/23/2013 CARMELITA BEAN FACC, ALI FACP CCDS Ot 426.52 12/23/2013 CARMELITA BEAN FACC, ALI FACP CCDS Ot 427.89 12/23/2013 CARMELITA BEAN FACC, ALI FACP CCDS Ot 564.00 12/23/2013 CARMELITA BEAN FACC, ALI FACP CCDS Ot 724.5 12/23/2013 CARMELITA BEAN FACC, ALI FACP CCDS Ot 729.89 12/23/2013 CARMELITA BEAN FACC, ALI FACP CCDS Ot 781.2 12/23/2013 CARMELITA BEAN FACC, ALI FACP CCDS Ot 788.20 12/23/2013 CARMELITA BEAN FACC, ALI FACP CCDS Ot V15.82 12/23/2013 CARMELITA BEAN FACC, ALI FACP CCDS Ot 338.29 OTHER CHRONIC PAIN 12/23/2013 CARMELITA BEAN FACC, ALI FACP CCDS Ot 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 12/23/2013 CARMELITA BEAN FACC, ALI FACP CCDS Ot 355.9 12/23/2013 CARMELITA BEAN FACC, ALI FACP CCDS Ot 401.9 HYPERTENSION NOS 12/23/2013 CARMELITA BEAN FACC, ALI FACP CCDS Ot 426.0 ATRIOVENT BLOCK COMPLETE 12/23/2013 CARMELITA BEAN FACC, ALI FACP CCDS Ot 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 12/23/2013 CARMELITA BAEN FACC, ALI FACP CCDS Ot 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 12/23/2013 CARMELITA BEAN FACC, ALI FACP CCDS Ot 427.89 CARDIAC DYSRHYTHMIAS NEC 12/23/2013 CARMELITA MCCALLUM, ALI FACP CCDS Ot 564.00 UNSPEC CONSTIPATION 12/23/2013 CARMELITA BEAN FACC, ALI FACP CCDS Ot 724.5 BACKACHE NOS 12/23/2013 CARMELITA BEAN FACC, ALI FACP CCDS Ot 729.89 MUSCSKEL SYMPT LIMB NEC 12/23/2013 CARMELITA BEAN FACC, ALI FACP CCDS Ot 781.2 ABNORMALITY OF GAIT 12/23/2013 CARMELITA BEAN FACC ALI FACP CCDS Ot 788.20 RETENTION OF URINE NOS 12/23/2013 CARMELITA MCCALLUM, ALI FACP CCDS Ot V03.82 PROPHYLACTIC VACC AGAINST STREPTOCOCCUS 12/23/2013 CARMELITA MCCALLUM, ALI FACP CCDS Ot V04.81 ND FOR PROPHYLACTIC VACCIN AND INOCULATI 12/23/2013 CARMELITA BEAN FACC, ALI FACP CCDS Ot V15.82 HISTORY OF TOBACCO USE 12/23/2013 Ot 550.90 12/23/2013 Ot V72.83 12/23/2013 Ot V74.8 12/24/2013 SATYA BEAN, DAYSI E Ot 305.1 12/24/2013 SATYA BEAN, DAYSI E Ot 343.9 12/24/2013 SATYA BEAN, DAYSI E Ot 401.9 12/24/2013 SATYA BEAN, DAYSI E Ot 724.5 12/24/2013 DAYSI HERNADEZ MD E Ot 729.89 12/24/2013 SATYA BEAN, DAYSI E Ot 781.2 12/24/2013 SATYA BEAN, DASYI E Ot V45.01 12/24/2013 SATYA BEAN, DAYSI E Ot V57.89 12/24/2013 SATYA BEAN DAYSI E Ot 305.1 12/24/2013 SATYA BEAN DAYSI E Ot 343.9 12/24/2013 HERNADEZ MD, DAYSI E Ot 401.9 12/24/2013 SATYA BEAN, DAYSI E Ot 724.5 12/24/2013 SATYA BEAN, DAYSI E Ot 729.89 12/24/2013 SATYA BEAN, DAYSI E Ot 781.2 12/24/2013 SATYA BEAN, DAYSI E Ot V45.01 12/24/2013 SATYA BEAN, DAYSI E Ot V57.89 12/31/2013 SATYA BEAN, DYASI E Ot 305.1 12/31/2013 SATYA BEAN, DAYSI E Ot 343.9 12/31/2013 SATYA BEAN, DAYSI E Ot 401.9 12/31/2013 SATYA BEAN, DAYSI E Ot 724.5 12/31/2013 SATYA BEAN, DAYSI E Ot 729.89 12/31/2013 SATYA BEAN, DAYSI E Ot 781.2 12/31/2013 SATYA BEAN, DAYSI E Ot V45.01 12/31/2013 SATYA BEAN, DAYSI E Ot V57.89 01/06/2014 SATYA BEAN, DAYSI E Ot 305.1 01/06/2014 SATYA BEAN, DAYSI E Ot 343.9 01/06/2014 SATYA BEAN, DAYSI E Ot 401.9 01/06/2014 SATYA BEAN, DAYSI E Ot 724.5 01/06/2014 SATYA BEAN, DAYSI E Ot 729.89 01/06/2014 SATYA BEAN, DAYSI E Ot 781.2 01/06/2014 SATYA BEAN, DAYSI E Ot V45.01 01/06/2014 SATYA BEAN, DAYSI E Ot V57.89 01/11/2014 SATYA BEAN, DAYSI E Ot 110.1 DERMATOPHYTOSIS OF NAIL 01/11/2014 SATYA BEAN, DAYSI E Ot 305.1 TOBACCO USE DISORDER 01/11/2014 SATYA BEAN, DAYSI E Ot 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 01/11/2014 SATYA BEAN, DAYSI E Ot 355.8 MONONEURITIS LEG NOS 01/11/2014 SATYA BEAN, DAYSI E Ot 401.9 HYPERTENSION NOS 01/11/2014 SATYA BEAN, DAYSI E Ot 564.00 UNSPEC CONSTIPATION 01/11/2014 SATYA BEAN, DAYSI E Ot 596.54 NEUROGENIC BLADDER, NOT OTHERWISE SPECIF 01/11/2014 SATYA BEAN, DAYSI E Ot 724.5 BACKACHE NOS 01/11/2014 DAYSI HERNADEZ MD Ot 729.89 MUSCSKEL SYMPT LIMB NEC 01/11/2014 DAYSI HERNADEZ MD Ot 735.4 OTHER HAMMER TOE 01/11/2014 DAYSI HERNADEZ MD Ot 736.79 ACQ ANKLE-FOOT DEF NEC 01/11/2014 DAYSI HERNADEZ MD Ot 781.2 ABNORMALITY OF GAIT 01/11/2014 DAYSI HERNADEZ MD Ot V45.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 01/11/2014 DAYSI HERNADEZ MD Ot V57.89 REHABILITATION PROC NEC 01/11/2014 DAYSI HERNADEZ MD Ot V58.73 AFTERCARE POST SURGERY CIRULATORY SYSTEM 06/27/2014 JUMANA DO, AMY A Ot 440.20 06/28/2014 MARILIA MCNAIR MD Ot 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 06/28/2014 MARILIA MCNAIR MD Ot 401.9 HYPERTENSION NOS 06/28/2014 MARILIA MCNAIR MD Ot 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 06/28/2014 MARILIA MCNAIR MD Ot 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 06/28/2014 MARILIA MCNAIR MD Ot 440.8 ATHEROSCLEROSIS NEC 06/28/2014 MARILIA MCNAIR MD Ot 441.4 ABDOM AORTIC ANEURYSM 06/28/2014 MARILIA MCNAIR MD Ot 530.81 ESOPHAGEAL REFLUX 06/28/2014 MARILIA MCNAIR MD Ot V15.82 HISTORY OF TOBACCO USE 06/28/2014 MARILIA MCNAIR MD Ot V45.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 06/28/2014 MARILIA MCNAIR MD Ot V58.69 OTH MED,LT,CURRENT USE 06/30/2014 MARILIA MCNAIR MD Ot 343.9 06/30/2014 MARILIA MCNAIR MD Ot 401.9 06/30/2014 MARILIA MCNAIR MD Ot 440.21 06/30/2014 MARILIA MCNAIR MD Ot 440.4 06/30/2014 MARILIA MCNAIR MD Ot 440.8 06/30/2014 MARILIA MCNAIR MD Ot 441.4 06/30/2014 MARILIA MCNAIR MD Ot 530.81 06/30/2014 MARILIA MCNAIR MD Ot V15.82 06/30/2014 MARILIA MCNAIR MD, Ot V45.01 07/01/2014 MARILIA MCNAIR MD Ot 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 07/01/2014 MARILIA MCNAIR MD Ot 401.9 HYPERTENSION NOS 07/01/2014 MARILIA MCNAIR MD Ot 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 07/01/2014 MARILIA MCNAIR MD Ot 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 07/01/2014 MARILIA MCNAIR MD Ot 441.4 ABDOM AORTIC ANEURYSM 07/01/2014 MARILIA MCNAIR MD Ot 444.21 07/01/2014 MARILIA MCNAIR MD Ot V15.82 HISTORY OF TOBACCO USE 07/01/2014 MARILIA MCNAIR MD Ot V45.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 07/01/2014 MARILIA MCNAIR MD, Ot V58.69 OTH MED,LT,CURRENT USE 07/05/2014 MARILIA MCNAIR MD Ot 401.9 07/05/2014 MARILIA MCNAIR MD Ot 441.4 07/05/2014 MARILIA MCNAIR MD Ot 444.21 07/05/2014 MARILIA MCNAIR MD Ot V45.01 07/05/2014 MARILIA MCNAIR MD Ot 401.9 07/05/2014 MARILIA MCNAIR MD Ot 441.4 07/05/2014 MARILIA MCNAIR MD Ot 444.21 07/05/2014 MARILIA MCNAIR MD Ot V45.01 07/11/2014 AMY DENNEY DO Ot 440.20 07/22/2014 AMY DENNEY DO Ot 440.20 11/16/2014 CARMELITA BEAN FACC, ALI FACP CCDS Ot 343.9 11/16/2014 CARMELITA BEAN FACC, ALI FACP CCDS Ot 401.9 11/16/2014 CARMELITA BEAN FACC, ALI FACP CCDS Ot 426.0 11/16/2014 CARMELITA BEAN FACC, ALI FACP CCDS Ot 441.4 11/16/2014 CARMELITA BEAN FACC, ALI FACP CCDS Ot 443.9 11/16/2014 CARMELITA BEAN FACC, ALI FACP CCDS Ot V45.01 11/18/2014 CARMELITA BEAN FACC, ALI FACP CCDS Ot 343.9 11/18/2014 CARMELITA BEAN FACC, ALI FACP CCDS Ot 401.9 11/18/2014 CARMELITA BEAN FACC, ALI FACP CCDS Ot 426.0 11/18/2014 CARMELITA BEAN FACC, ALI FACP CCDS Ot 441.4 11/18/2014 CARMELITA BEAN FACC, ALI FACP CCDS Ot 443.9 11/18/2014 CARMELITA BEAN FACC, ALI FACP CCDS Ot V45.01 11/22/2014 CARMELITA BEAN FACC, ALI FACP CCDS Ot 343.9 11/22/2014 CARMELITA BEAN FACC, ALI FACP CCDS Ot 401.9 11/22/2014 CARMELITA BEAN FACC, ALI FACP CCDS Ot 426.0 11/22/2014 CARMELITA BEAN FACC, ALI FACP CCDS Ot 441.4 11/22/2014 CARMELITA BEAN FACC, ALI FACP CCDS Ot 443.9 11/22/2014 CARMELITA MCCALLUMC, ALI FACP CCDS Ot V45.01 03/04/2016 AMY DENNEY DO Ot 440.20 ATHEROSCLEROSIS SOLOMON ARTERIES EXTREMIT 03/04/2016 CARMELITA MCCALLUMC, ALI FACP CCDS Ot 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 03/04/2016 CARMELITA BEAN FACC, ALI FACP CCDS Ot 401.9 HYPERTENSION NOS 03/04/2016 CARMELITA BEAN FACC, RAMANA FACP CCDS Ot 426.0 ATRIOVENT BLOCK COMPLETE 03/04/2016 CARMELITA MCCALLUMC, ALI FACP CCDS Ot 441.4 ABDOM AORTIC ANEURYSM 03/04/2016 CARMELITA MCCALLUMC, ALI FACP CCDS Ot 443.9 PERIPH VASCULAR DIS NOS 03/04/2016 CARMELITA BEAN FACC, ALI FACP CCDS Ot V45.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 03/04/2016 AMY DENNEY DO Ot R05 COUGH 03/04/2016 AMY DENNEY DO Ot R50.9 FEVER, UNSPECIFIED 04/02/2016 AMY DENNEY DO Ot R05 COUGH 04/02/2016 AMY DENNEY DO Ot R50.9 FEVER, UNSPECIFIED 04/03/2016 GELLENDER DO, AMY Stovall Ot R05 COUGH 04/03/2016 GELLENDER DO, AMY Stovall Ot R50.9 FEVER, UNSPECIFIED 05/29/2016 GELLENDER DO, AMY Stovall Ot R05 COUGH 05/29/2016 GELLENDER DO, AMY Stovall Ot R50.9 FEVER, UNSPECIFIED 06/18/2016 CARMELITA BEAN FACC, RAMANA FACP CCDS Ot I73.89 OTHER SPECIFIED PERIPHERAL VASCULAR DISE 06/18/2016 CARMELITA BEAN FACC, ALI FACP CCDS Ot I73.89 OTHER SPECIFIED PERIPHERAL VASCULAR DISE 06/18/2016 CARMELITA BEAN FACC, ALI FACP CCDS Ot I73.89 OTHER SPECIFIED PERIPHERAL VASCULAR DISE 06/18/2016 CARMELITA BEAN FACC, ALI FACP CCDS Ot I10 ESSENTIAL (PRIMARY) HYPERTENSION 06/18/2016 CARMELITA BEAN FACC, ALI FACP CCDS Ot I44.2 ATRIOVENTRICULAR BLOCK, COMPLETE 06/18/2016 CARMELITA BEAN FACC, ALI FACP CCDS Ot I71.4 ABDOMINAL AORTIC ANEURYSM, WITHOUT RUPTU 06/18/2016 CARMELITA BEAN FACC, ALI FACP CCDS Ot I73.89 OTHER SPECIFIED PERIPHERAL VASCULAR DISE 06/18/2016 CARMELITA BEAN FACC, RAMANA FACP CCDS Ot R06.02 SHORTNESS OF BREATH 06/18/2016 CARMELITA BEAN FACC, RAMANA FACP CCDS Ot R26.89 OTHER ABNORMALITIES OF GAIT AND MOBILITY 06/18/2016 CARMELITA BEAN FACC, ALI FACP CCDS Ot Z95.0 PRESENCE OF CARDIAC PACEMAKER 06/18/2016 CARMELITA BEAN FACC, ALI FACP CCDS Ot I10 ESSENTIAL (PRIMARY) HYPERTENSION 06/18/2016 CARMELITA BEAN FACC, ALI FACP CCDS Ot I44.2 ATRIOVENTRICULAR BLOCK, COMPLETE 06/18/2016 CARMELITA BEAN FACC, ALI FACP CCDS Ot I71.4 ABDOMINAL AORTIC ANEURYSM, WITHOUT RUPTU 06/18/2016 CARMELITA BEAN FACC, ALI FACP CCDS Ot I73.89 OTHER SPECIFIED PERIPHERAL VASCULAR DISE 06/18/2016 CARMELITA BEAN FACC, ALI FACP CCDS Ot R06.02 SHORTNESS OF BREATH 06/18/2016 CARMELITA BEAN FACC, ALI FACP CCDS Ot R26.89 OTHER ABNORMALITIES OF GAIT AND MOBILITY 06/18/2016 CARMELITA MD FACC, ALI FACP CCDS Ot Z95.0 PRESENCE OF CARDIAC PACEMAKER 06/19/2016 CARMELITA MCCALLUMC, ALI FACP CCDS Ot I10 ESSENTIAL (PRIMARY) HYPERTENSION 06/19/2016 CARMELITA BEAN FACC, ALI FACP CCDS Ot I44.2 ATRIOVENTRICULAR BLOCK, COMPLETE 06/19/2016 CARMELITA BEAN FACC, ALI FACP CCDS Ot I71.4 ABDOMINAL AORTIC ANEURYSM, WITHOUT RUPTU 06/19/2016 CARMELITA BEAN FACC, ALI FACP CCDS Ot I73.89 OTHER SPECIFIED PERIPHERAL VASCULAR DISE 06/19/2016 CARMELITA BEAN FACC, ALI FACP CCDS Ot R06.02 SHORTNESS OF BREATH 06/19/2016 CARMELITA BEAN FACC, ALI FACP CCDS Ot R26.89 OTHER ABNORMALITIES OF GAIT AND MOBILITY 06/19/2016 CARMELITA BEAN FACC, ALI FACP CCDS Ot Z95.0 PRESENCE OF CARDIAC PACEMAKER 07/11/2016 CARMELITA MCCALLUMC, ALI FACP CCDS Ot I10 ESSENTIAL (PRIMARY) HYPERTENSION 07/11/2016 CARMELITA BEAN FACC, ALI FACP CCDS Ot I44.2 ATRIOVENTRICULAR BLOCK, COMPLETE 07/11/2016 CARMELITA MCCALLUMC, ALI FACP CCDS Ot I71.4 ABDOMINAL AORTIC ANEURYSM, WITHOUT RUPTU 07/11/2016 CARMELITA MCCALLUM, ALI FACP CCDS Ot I73.89 OTHER SPECIFIED PERIPHERAL VASCULAR DISE 07/11/2016 CARMELITA BEAN FACC, ALI FACP CCDS Ot R06.02 SHORTNESS OF BREATH 07/11/2016 CARMELITA BEAN FACC, ALI FACP CCDS Ot R26.89 OTHER ABNORMALITIES OF GAIT AND MOBILITY 07/11/2016 CARMELITA MCCALLUM, ALI FACP CCDS Ot Z95.0 PRESENCE OF CARDIAC PACEMAKER 07/11/2016 AMY DENNEY DO Ot N39.0 URINARY TRACT INFECTION, SITE NOT SPECIF 07/15/2016 CARMELITA BEAN FACC, ALI FACP CCDS Ot I10 ESSENTIAL (PRIMARY) HYPERTENSION 07/15/2016 CARMELITA BEAN FACC, ALI FACP CCDS Ot I44.2 ATRIOVENTRICULAR BLOCK, COMPLETE 07/15/2016 CARMELITA BEAN FACC, ALI FACP CCDS Ot I71.4 ABDOMINAL AORTIC ANEURYSM, WITHOUT RUPTU 07/15/2016 CARMELITA MCCALLUMC, ALI FACP CCDS Ot I73.89 OTHER SPECIFIED PERIPHERAL VASCULAR DISE 07/15/2016 CARMELITA BEAN FACC, ALI FACP CCDS Ot R06.02 SHORTNESS OF BREATH 07/15/2016 CARMELITA BEAN FACC, ALI FACP CCDS Ot R26.89 OTHER ABNORMALITIES OF GAIT AND MOBILITY 07/15/2016 CARMELITA BEAN FACC, ALI FACP CCDS Ot Z95.0 PRESENCE OF CARDIAC PACEMAKER 07/15/2016 CARMELITA BEAN FACC, ALI FACP CCDS Ot I10 ESSENTIAL (PRIMARY) HYPERTENSION 07/15/2016 CARMELITA BEAN FACC, ALI FACP CCDS Ot I44.2 ATRIOVENTRICULAR BLOCK, COMPLETE 07/15/2016 CARMELITA BEAN FACC, ALI FACP CCDS Ot I71.4 ABDOMINAL AORTIC ANEURYSM, WITHOUT RUPTU 07/15/2016 CARMELITA BEAN FACC, ALI FACP CCDS Ot I73.89 OTHER SPECIFIED PERIPHERAL VASCULAR DISE 07/15/2016 CARMELITA MCCALLUMC, ALI FACP CCDS Ot R06.02 SHORTNESS OF BREATH 07/15/2016 CARMELITA BEAN FACC, ALI FACP CCDS Ot R26.89 OTHER ABNORMALITIES OF GAIT AND MOBILITY 07/15/2016 CARMELITA MCCALLUMC, ALI FACP CCDS Ot Z95.0 PRESENCE OF CARDIAC PACEMAKER 07/17/2016 CARMELITA BEAN FACC, ALI FACP CCDS Ot I10 ESSENTIAL (PRIMARY) HYPERTENSION 07/17/2016 CARMELITA BEAN FACC, ALI FACP CCDS Ot I44.2 ATRIOVENTRICULAR BLOCK, COMPLETE 07/17/2016 CARMELITA BEAN FACC, ALI FACP CCDS Ot I71.4 ABDOMINAL AORTIC ANEURYSM, WITHOUT RUPTU 07/17/2016 CARMELITA BEAN FACC, ALI FACP CCDS Ot I73.89 OTHER SPECIFIED PERIPHERAL VASCULAR DISE 07/17/2016 CARMELITA BEAN FACC, ALI FACP CCDS Ot R06.02 SHORTNESS OF BREATH 07/17/2016 CARMELITA BEAN [facility], ALI FACP CCDS Ot R26.89 OTHER ABNORMALITIES OF GAIT AND MOBILITY 07/17/2016 CARMELITA BEAN FACC, ALI FACP CCDS Ot Z95.0 PRESENCE OF CARDIAC PACEMAKER 07/17/2016 AMY DENNEY DO Ot N39.0 URINARY TRACT INFECTION, SITE NOT SPECIF 07/22/2016 CARMELITA BEAN FACC, ALI FACP CCDS Ot I10 ESSENTIAL (PRIMARY) HYPERTENSION 07/22/2016 CARMELITA MD FACC, ALI FACP CCDS Ot I44.2 ATRIOVENTRICULAR BLOCK, COMPLETE 07/22/2016 CARMELITA BEAN FACC, ALI FACP CCDS Ot I71.4 ABDOMINAL AORTIC ANEURYSM, WITHOUT RUPTU 07/22/2016 CARMELITA BEAN FACC, ALI FACP CCDS Ot I73.89 OTHER SPECIFIED PERIPHERAL VASCULAR DISE 07/22/2016 CARMELITA BEAN FACC, ALI FACP CCDS Ot R06.02 SHORTNESS OF BREATH 07/22/2016 CARMELITA BEAN FACC, ALI FACP CCDS Ot R26.89 OTHER ABNORMALITIES OF GAIT AND MOBILITY 07/22/2016 CARMELITA BEAN [facility], ALI FACP CCDS Ot Z95.0 PRESENCE OF CARDIAC PACEMAKER 07/22/2016 CARMELITA BEAN [facility], ALI FACP CCDS Ot I10 ESSENTIAL (PRIMARY) HYPERTENSION 07/22/2016 CARMELITA BEAN FACC, ALI FACP CCDS Ot I44.2 ATRIOVENTRICULAR BLOCK, COMPLETE 07/22/2016 CARMELITA BEAN FACC, ALI FACP CCDS Ot I71.4 ABDOMINAL AORTIC ANEURYSM, WITHOUT RUPTU 07/22/2016 CARMELITA BEAN [facility], ALI FACP CCDS Ot I73.89 OTHER SPECIFIED PERIPHERAL VASCULAR DISE 07/22/2016 CARMELITA BEAN [facility], ALI FACP CCDS Ot R06.02 SHORTNESS OF BREATH 07/22/2016 CARMELITA BEAN [facility], ALI FACP CCDS Ot R26.89 OTHER ABNORMALITIES OF GAIT AND MOBILITY 07/22/2016 CARMELITA BEAN [facility], ALI FACP CCDS Ot Z95.0 PRESENCE OF CARDIAC PACEMAKER Procedures Code Description Performed By Performed On 37.72 INITIAL INSERT TRANS LEADS INTO ATRIUM 12/21/2013 37.83 INITIAL INSERTION OF DUAL-CHAMBER DEVICE 12/21/2013 86.27 DEBRIDEMENT OF NAIL, NAIL BED OR NAIL FO 01/10/2014 Results Test Result Range Complete blood count (CBC) with automated white blood cell (WBC) differential - 02/29/16 11:01 Blood leukocytes automated count (number/volume) 8.5 10*3/ uL 4.3-11.0 Blood erythrocytes automated count (number/volume) 4.85 10*6 /uL 4.35-5.85 Venous blood hemoglobin measurement (mass/volume) 13.8 g/dL 13.3-17.7 Blood hematocrit (volume fraction) 42 % 40-54 Automated erythrocyte mean corpuscular volume 86 [foz_us] 80-99 Automated erythrocyte mean corpuscular hemoglobin (mass per erythrocyte) 29 pg 25-34 Automated erythrocyte mean corpuscular hemoglobin concentration measurement ( mass/volume) 33 g/dL 32-36 Automated erythrocyte distribution width ratio 13.7 % 10.0-14.5 Automated blood platelet count (count/volume) 173 10*3/uL 130-400 Automated blood platelet mean volume measurement 9.9 [foz_us ] 7.4-10.4 Automated blood neutrophils/100 leukocytes 62 % 42-75 Automated blood lymphocytes/100 leukocytes 18 % 12-44 Blood monocytes/100 leukocytes 15 % 0-12 Automated blood eosinophils/100 leukocytes 5 % 0-10 Automated blood basophils/100 leukocytes 0 % 0-10 Blood neutrophils automated count (number/volume) 5.2 10*3 1.8-7.8 Blood lymphocytes automated count (number/volume) 1.6 10*3 1.0-4.0 Blood monocytes automated count (number/volume) 1.3 10*3 0.0-1.0 Automated eosinophil count 0.4 10*3/uL 0.0-0.3 Automated blood basophil count (count/volume) 0.0 10*3/uL 0.0-0.1 Complete urinalysis with reflex to culture - 06/21/16 19:15 Urine color determination YELLOW NRG Urine clarity determination SLIGHTLY CLOUDY NRG Urine pH measurement by test strip 6 5- 9 Specific gravity of urine by test strip 1.015 1.016-1.022 Urine protein assay by test strip, semi-quantitative 3+ NEGATIVE Urine glucose detection by automated test strip NEGATIVE NEGATIVE Erythrocytes detection in urine sediment by light microscopy 5+ NEGATIVE Urine ketones detection by automated test strip NEGATIVE NEGATIVE Urine nitrite detection by test strip POSITIVE NEGATIVE Urine total bilirubin detection by test strip NEGATIVE NEGATIVE Urine urobilinogen measurement by automated test strip (mass/volume) 1 mg/dL NORMAL Urine leukocyte esterase detection by dipstick 3+ NEGATIVE Automated urine sediment erythrocyte count by microscopy (number/high power field) [HPF] NRG Automated urine sediment leukocyte count by microscopy (number/high power field ) > [HPF] NRG Bacteria detection in urine sediment by light microscopy LARGE NRG Crystals detection in urine sediment by light microscopy NONE NRG Casts detection in urine sediment by light microscopy NONE NRG Mucus detection in urine sediment by light microscopy NEGATIVE NRG Complete urinalysis with reflex to culture YES NRG Bacterial urine culture - 06/21/16 19:15 Bacterial urine culture [id number] NRG COLONY COUNT 10,000/ML - 100,000/ML NRG FTX;REPORTABLE STUDIES TO FOLLOW NRG URINE CULTURE RESULTS PLUS NRG Bacterial susceptibility panel - 06/21/16 19:15 Gentamicin susceptibility test by minimum inhibitory concentration <= NRG Trimethoprim/sulfamethoxazole susceptibility test by minimum inhibitoryconcentration <= NRG Tobramycin susceptibility test by minimum inhibitory concentration <= NRG Cefazolin susceptibility test by minimum inhibitory concentration >= NRG Piperacillin/tazobactam susceptibility test by minimum inhibitory concentration 8 NRG Ciprofloxacin susceptibility test by minimum inhibitory concentration <= NRG Meropenem susceptibility test by minimum inhibitory concentration <= NRG Nitrofurantoin susceptibility test by minimum inhibitory concentration 128 NRG Aztreonam susceptibility test by minimum inhibitory concentration <= NRG Cefepime susceptibility test by minimum inhibitory concentration <= NRG Encounters ACCT No. Visit Date/Time Discharge Status Pt. Type Provider Facility Loc./Unit Complaint [id number] 02/29/2016 10:00:00 2016 00:01:00 DIS Outpatient AMY DENNEY DO [facility] LAB COUGH,CONGESTION,ELEVATED TEMP [id number] 10/26/2014 08:05:00 2014 23:59:59 CLS Outpatient CARMELITA BEAN FACCRAMANA FACP CCDS [facility] RAD AAA [id number] 06/30/2014 08:14:00 2014 15:25:00 DIS Outpatient MARILIA MCNAIR MD [facility] CATH PAD [id number] 06/27/2014 06:54:00 2014 16:10:00 DIS Outpatient MARILIA MCNAIR MD [facility] CATH PAD,HTN [id number] 06/16/2014 12:49:00 2014 23:59:59 CLS Outpatient AMY DENNEY DO [facility] RAD NON PULSE IN BOTH FEET [id number] 12/23/2013 15:00:00 2013 13:00:00 DIS Inpatient DAYSI HERNADEZ MD [facility] IRF 3RD DEGREE HEART BLOCK [id number] 12/20/2013 11:50:00 2013 15:00:00 DIS Inpatient CARMELITA BEAN FACC, ALI FACP CCDS [facility] CSD 3RD DEGREE HEART BLOCK [id number] 07/17/2016 10:15:00 PEN Preadmit CARMELITA BEAN FACC , ALI FACP CCDS [facility] RAD AAA I71.4,CHB I44.2 [id number] 06/21/2016 19:15:00 ACT Outpatient AMY DENNEY DO [facility] MLF N39.0 [id number] 06/20/2016 07:54:00 ACT Outpatient CARMELITA BEAN FACC, ALI FACP CCDS [facility] CARD R06.02 EXERTIONAL SOB [id number] 06/18/2016 12:56:00 ACT Outpatient CARMELITA BEAN FACC, ALI FACP CCDS [facility] RAD R06.02 EXERTIONAL SOB [id number] 06/17/2016 08:58:00 ACT Outpatient CARMELITA BEAN FACC, ALI FACP CCDS [facility] CARD R06.02 EXERETIONAL SOB [id number] 05/30/2016 00:11:00 PEN Preadmit AMY DENNEY DO [facility] LAB COUGH,CONGESTION,ELEVATED TEMP [id number] 12/23/2013 15:34:00 Document Registration [id number] 10/05/2008 16:00:00 Document Registration
[2016-08-08 11:04] VITALS: BP 95/66
== END 2016-08-08 11:49 | disposition short-term general hospital (02) ==
LOC: EDUNIT# 07:40 → ER 07:41
DX: A41.9 Sepsis, unspecified organism (principal); N39.0 Urinary tract infection, site not specified; K85.10 Biliary acute pancreatitis without necrosis or infection; I71.4 Abdominal aortic aneurysm, without rupture; I10 Essential (primary) hypertension; G80.9 Cerebral palsy, unspecified; N40.0 Benign prostatic hyperplasia without lower urinary tract symptoms; R33.8 Other retention of urine; K21.9 Gastro-esophageal reflux disease without esophagitis; K59.00 Constipation, unspecified; Z95.0 Presence of cardiac pacemaker; Z79.899 Other long term (current) drug therapy
CPT/HCPCS: 36415; 51701; 71010; 74177; 80053; 81000; 82150; 83605; 83690; 83735; 85007; 85027; 87040; 87077; 87088; 93041; 96361; 96365; 96375

== ENCOUNTER → 2016-09-24 | Outpatient (CLI) | payer MEDICARE, MEDICAID ==
--- NOTE | 2016-09-24 11:56 | Diagnostic Imaging Report ---
INDICATION: Right-sided testicular pain and swelling. TECHNIQUE: Real-time grayscale sonographic imaging and color vascular evaluation of both testicles was performed. CORRELATION STUDY: 10/05/2008. FINDINGS: RIGHT testicle measures 2.7 x 2.3 x 2.4 cm. There is somewhat heterogeneous echotexture of the right testicle. A definitive mass is not visualized. There is, however, prominent asymmetric hyperemia with increased vascularity throughout the right testicle as well as the epididymis which also appears to be edematous. Moderate-sized right-sided hydrocele present. LEFT testicle measures 4.6 x 2.1 x 2.7 cm. The left testicle is normal in echogenicity. No focal testicular mass is demonstrated. There is color vascular signal. There is a complex fairly sizable cyst about the left epididymal head at 3.4 x 2.7 x 2.6 cm. Multiple septations are present. IMPRESSION: 1. Imaging features favor probable right-sided epididymal orchitis. 2. Moderate-sized right-sided hydrocele. 3. Complex septated cyst, left epididymal head, measuring up to 3.4 cm in size. There may be a small amount of debris present. This appeared to be present on prior imaging but has increased in size. Given overall findings, close clinical as well as short-term followup ultrasound imaging is recommended to exclude other underlying process including neoplasm. Dictated by: Dictated on workstation # [id number]
== END ==
LOC: RAD 08:34
PROVIDERS: ATTEND Family Medicine
DX: N50.89 Other specified disorders of the male genital organs (principal)
CPT/HCPCS: 76870

== ENCOUNTER 2016-10-03 11:49 | Emergency (ER) | payer MEDICARE, MEDICAID ==
[~2016-10-03] VITALS: Ht 182.9 cm; Wt 80.7 kg
[2016-10-03] MEDS ORDERED: fentaNYL INJECTION 100 MCG/2 ML AMP IVP ONE (12:00)
--- NOTE | 2016-10-03 12:06 | ED GU-Male ---
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 Patient said scrotal swelling for the past 2 weeks. He resides at [facility]. He states that the swelling is no worse today and the pain is no worse today. He denies fevers or chills. He reports intermittent abdominal pain but none currently. No nausea or vomiting. He also states that he is not having bowel movements or passing gas. He did have a scrotal ultrasound a few days ago which showed right sided epididymoorchitis with moderate septated epididymal head cyst and hydrocele. He self catheterizes at the longterm. Timing/Duration: other (2 weeks) Severity/Quality: moderate Activities at Onset: none Associated Symptoms: denies symptoms Allergies and Home Medications Allergies Coded Allergies: No Known Drug Allergies (Verified , 12/20/13) Home Medications Acetaminophen 325 Mg Tab, 650 MG PO Q6H PRN for PAIN, (Reported) TAKES 2 (325MG) TABLETS Amlodipine Besylate 2.5 Mg Tab, 2.5 MG PO DAILY, (Reported) Cefuroxime Axetil 500 Mg Tablet, 500 MG PO BID, #20 Prescribed by: LIOR COOK on 10/03/16 1420 Celecoxib 200 Mg Capsule, 200 MG PO DAILY, (Reported) Clopidogrel Bisulfate 75 Mg Tablet, 75 MG PO DAILY, (Reported) Docusate Sodium 100 Mg Cap, 100 MG PO DAILY, (Reported) Gabapentin 300 Mg Tablet, 900 MG PO HS, (Reported) TAKES 3 (300MG) CAPSULES Levofloxacin 500 Mg Tablet, 500 MG PO DAILY, #10 Prescribed by: LIOR COOK on 10/03/16 1420 Loratadine 10 Mg Tablet, 10 MG PO DAILY PRN for ALLERGIES, (Reported) Menthol 118 Ml Gel..ml., TP Q6H PRN for PAIN, (Reported) APPLY TO LOWER BACK Metoprolol Tartrate 100 Mg Tablet, 50 MG PO BID, (Reported) TAKES 1/2 (100MG) TABLET Ondansetron Hcl 4 Mg Tab, 4 MG PO Q6H PRN for NAUSEA/VOMITING, (Reported) Promethazine Hcl 6.25 Mg/5 Ml Syrup, 5 ML PO Q6H PRN for COUGH, (Reported) Promethazine/Codeine 5 Ml Syrp, 10 ML PO Q8H PRN for COUGH, (Reported) Sod Phosphate/Sod Biphosphate 1 Ea Enem, 1 EA DE DAILY PRN for CONSTIPATION, ( Reported) Tramadol Hcl 50 Mg Tablet, 50 MG PO 0400, 1200, 1999, (Reported) Triamcinolone Acet 15 Gm Cr, TOP PRN PRN for RASH, (Reported) APPLY TO FACE TOPICALLY NEEDED FOR SKIN CONDITION- RASH RELATED TO CANDIDIASIS OF SKIN AND NAILS Constitutional: see HPI, No chills, No fever EENTM: see HPI Respiratory: no symptoms reported Cardiovascular: no symptoms reported Genitourinary: see HPI Musculoskeletal: no symptoms reported Skin: no symptoms reported Psychiatric/Neurological: No Symptoms Reported Past Fowtwbr-Uqiwfy-Bwiacx Hx Patient Social History 2nd Hand Smoke Exposure: No Recent Foreign Travel: No Contact w/Someone Who Travel: No Recent Hopitalizations: Yes Immunizations Up To Date Tetanus Booster (TDap): Less than 5yrs PED Vaccines UTD: Yes Date of Pneumonia Vaccine: Dec 21, 2013 Date of Influenza Vaccine: Dec 21, 2013 Seasonal Allergies Seasonal Allergies: Yes Surgeries History of Surgeries: Yes (gallbladder removed april 2006, hernia's removed ) Surgeries: Abdominal, Gallbladder, Pacemaker Respiratory History of Respiratory Disorde: No Cardiovascular History of Cardiac Disorders: Yes (3rd degree heart block, Pacemaker placed) Cardiac Disorders: Aneurysm, Hypertension Neurological History of Neurological Disord: Yes Neurological Disorders: Cerebral Palsy Reproductive System Hx Reproductive Disorders: No Sexually Transmitted Disease: Yes (CLAP AT AGE 15) Genitourinary History of Genitourinary Disor: Yes (recent treatment for UTI) Genitourinary Disorders: Prostate Problems, UTI-Chronic Gastrointestinal History of Gastrointestinal Di: Yes (CONSTIPATION) Gastrointestinal Disorders: Gastroesophageal Reflux, Chronic Constipation, Gall Bladder Disease Musculoskeletal History of Musculoskeletal Dis: Yes Musculoskeletal Disorders: Arthritis Endocrine History of Endocrine Disorders: No HEENT HEENT Disorders: Cataract, Glaucoma Cancer History of Cancer: No Psychosocial History of Psychiatric Problem: No Integumentary History of Skin or Integumenta: No Blood Transfusions History of Blood Disorders: No Family Medical History Family Medial History: FH: throat cancer 19 MOTHER Physical Exam Vital Signs Vital Sign - Last 12Hours 10/03/16 11:55 Temp 97.4 Pulse 80 Resp 18 B/P (MAP) 132/105 Pulse Ox 97 Capillary Refill : General Appearance: WD/WN, no apparent distress HEENT: PERRL/EOMI, normal ENT inspection Neck: non-tender, full range of motion Respiratory: no respiratory distress, no accessory muscle use Gastrointestinal: normal bowel sounds, non tender, soft, No abnormal bowel sounds, No distended, No guarding, No rebound, No tenderness, other (the bowel sounds are normal. There is abdominal distention. The abdomen is nontender.) Genital/Rectal: other (There is scrotal swelling primarily on the right side which is also erythematous. The scrotum feels to be adherent to the underlying testicle. This is very tender to palpation.) Extremities: normal range of motion, non-tender Neurologic/Psychiatric: alert, normal mood/affect, oriented x 3 Skin: normal color Progress/Results/Core Measures Results/Orders Lab Results Laboratory Tests Test 10/03/16 12:05 Range/Units White Blood Count 12.6 H 4.3-11.0 10^3/uL Red Blood Count 4.73 4.35-5.85 10^6/uL Hemoglobin 13.0 L 13.3-17.7 G/DL Hematocrit 40 40-54 % Mean Corpuscular Volume 85 80-99 FL Mean Corpuscular Hemoglobin 28 25-34 PG Mean Corpuscular Hemoglobin Concent 32 32-36 G/DL Red Cell Distribution Width 13.1 10.0-14.5 % Platelet Count 277 130-400 10^3/uL Mean Platelet Volume 8.9 7.4-10.4 FL Neutrophils (%) (Auto) 78 H 42-75 % Lymphocytes (%) (Auto) 9 L 12-44 % Monocytes (%) (Auto) 10 0-12 % Eosinophils (%) (Auto) 2 0-10 % Basophils (%) (Auto) 0 0-10 % Neutrophils # (Auto) 9.8 H 1.8-7.8 X 10^3 Lymphocytes # (Auto) 1.1 1.0-4.0 X 10^3 Monocytes # (Auto) 1.3 H 0.0-1.0 X 10^3 Eosinophils # (Auto) 0.3 0.0-0.3 10^3/uL Basophils # (Auto) 0.0 0.0-0.1 10^3/uL Urine Color YELLOW Urine Clarity SLIGHTLY CLOUDY Urine pH 6 5-9 Urine Specific [place] 1.015 L 1.016-1.022 Urine Protein 1+ H NEGATIVE Urine Glucose (UA) NEGATIVE NEGATIVE Urine Ketones NEGATIVE NEGATIVE Urine Nitrite NEGATIVE NEGATIVE Urine Bilirubin NEGATIVE NEGATIVE Urine Urobilinogen NORMAL NORMAL MG/DL Urine Leukocyte Esterase 3+ H NEGATIVE Urine RBC (Auto) 5+ H NEGATIVE Urine RBC NONE /HPF Urine WBC 2-5 /HPF Urine Crystals NONE /LPF Urine Bacteria LARGE H /HPF Urine Casts NONE /LPF Urine Mucus NEGATIVE /LPF Urine Culture Indicated YES Sodium Level 137 135-145 MMOL/L Potassium Level 4.2 3.6-5.0 MMOL/L Chloride Level 102 98-107 MMOL/L Carbon Dioxide Level 27 21-32 MMOL/L Anion Gap 8 5-14 MMOL/L Blood Urea Nitrogen 13 7-18 MG/DL Creatinine 0.78 0.60-1.30 MG/DL Estimat Glomerular Filtration Rate > 60 BUN/Creatinine Ratio 17 Glucose Level 102 70-105 MG/DL Calcium Level 8.8 8.5-10.1 MG/DL Total Bilirubin 0.4 0.1-1.0 MG/DL Aspartate Amino Transf (AST/SGOT) 15 5-34 U/L Alanine Aminotransferase (ALT/SGPT) 10 0-55 U/L Alkaline Phosphatase 83 40-136 U/L Total Protein 7.5 6.4-8.2 GM/DL Albumin 3.6 3.2-4.5 GM/DL My Orders Orders - LIOR COOK APRN Cbc With Automated Diff (10/03/16 11:59) Comprehensive Metabolic Panel (10/03/16 11:59) Saline Lock/Iv-Start (10/03/16 11:59) Ct Abdomen/Pelvis Wo (10/03/16 11:59) Fentanyl Injection (Sublimaze Injection (10/03/16 12:00) Ua Culture If Indicated (10/03/16 12:02) Us Scrotum (Testicle) [id number] (10/03/16 12:07) Urine Culture (10/03/16 12:05) Ceftriaxone Injection (Rocephin Injectio (10/03/16 13:15) Levofloxacin Tablet (Levaquin Tablet) (10/03/16 14:15) Arenas Cath Insertion (10/03/16 14:04) Levofloxacin Tablet (Levaquin Tablet) (10/03/16 14:15) Medications Given in ED Current Medications Medications Dose Ordered Sig/Manuel Route Start Time Stop Time Status Last Admin Dose Admin Ceftriaxone Sodium 1000 mg/ Sodium Chloride 50 ml @ 100 mls/hr ONCE ONCE IV 10/03/16 13:15 10/03/16 13:44 DC 10/03/16 13:28 100 MLS/HR Fentanyl Citrate 50 mcg ONCE ONCE IVP 10/03/16 12:00 10/03/16 12:01 DC 10/03/16 12:15 50 MCG Vital Signs/I&O Vital Sign - Last 12Hours 10/03/16 11:55 Temp 97.4 Pulse 80 Resp 18 B/P (MAP) 132/105 Pulse Ox 97 Departure Communication Communication/Consulting 1400- I discussed the case with Dr. Cantu. He recommends Rocephin here plus Levaquin here and a prescription for Ceftin and Levaquin in the outpatient setting at the longterm. Since the patient is without sepsis he can go back to the longterm. He would like a Arenas catheter placed and left in place for at least the next 10 days until the patient follows up with Dr. Cantu or Dr. Denney. The patient does self catheterize at longterm which is likely source of infection. Discussed this with Dr. Dr. Denney and he agrees with the plan would like to have the patient follow up with Dr. Cantu. Probably patient himself refuses to have a Arenas catheter placed. 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 TECHNIQUE: Multiple contiguous axial images were obtained through the abdomen and pelvis without the use of intravenous contrast. INDICATION: Intermittent abdominal pain. Comparison is made to study of 08/08/2016. Unenhanced images of the liver and spleen reveal no focal abnormality. There has been placement of internal biliary stent with partial decompression of the dilated biliary tree. No focal pancreatic, adrenal or renal lesion is identified. There has been interval placement of endoluminal aortic stent graft. This is incompletely evaluated without intravenous contrast, however, the aneurysm sac is unchanged in size measuring 5.6 x 5.0 cm. Graft extends into both common iliac arteries. There is a moderate amount of stool throughout colon with largest stool burden in the right colon. Evaluation of the bladder is limited without intravenous contrast, however, there is an intraluminal calcification similar in size to the previous study. There is continued prominent impression on the bladder base from the prostate gland. IMPRESSION: Interval placement of internal biliary stent with decompression of biliary tree. There has also been interval endoluminal stent graft placement within the abdominal aorta with no significant change in aneurysm sac dimensions. Patency is not well evaluated without intravenous contrast. There is also stable intraluminal filling defect within the bladder which may be due to previous stone passage. Dictated on workstation # [id number] Dict: 10/03/16 1239 Trans: 10/03/16 1249 [facility] [id number] Interpreted by: MAURA GIL MD Electronically signed by: Impression Impression: Primary Impression: Epididymo-orchitis Disposition: 03 XFER SNF Condition: Stable Departure-Patient Inst. Decision time for Depature: 14:18 Referrals: AMY DENNEY DO (PCP/Family) Primary Care Physician ERICK CANTU MD Patient Instructions: Epididymitis, Hydrocele Add. Discharge Instructions: 2. Please call today or tomorrow to make an appointment to see Dr. Cantu in about 10 days 2. Take the antibiotics as directed starting tomorrow. Scripts Levofloxacin (Levaquin) 500 Mg Tablet 500 MG PO DAILY, #10 TAB Prov: LIOR COOK FISH HOUSEKEEPER 10/03/16 Cefuroxime Axetil (Cefuroxime) 500 Mg Tablet 500 MG PO BID, #20 TAB Prov: LIOR COOK FISH HOUSEKEEPER 10/03/16 LIOR COOK FISH HOUSEKEEPER Oct 03, 2016 12:06
[2016-10-03 12:20] LABS: BASOPHILS % (AUTO) 0 % (0-10); EOSINOPHILS # (AUTO) 0.3 10^3/uL (0.0-0.3); EOSINOPHILS % (AUTO) 2 % (0-10); LYMPHOCYTES # (AUTO) 1.1 X 10^3 (1.0-4.0); LYMPHOCYTES % (AUTO) 9 % (12-44); MEAN CORPUSCULAR HEMOGLOBIN 28 PG (25-34); MEAN CORPUSCULAR HGB CONC 32 G/DL (32-36); MEAN CORPUSCULAR VOLUME 85 FL (80-99); MEAN PLATELET VOLUME 8.9 FL (7.4-10.4); MONOCYTES # (AUTO) 1.3 X 10^3 (0.0-1.0); MONOCYTES % (AUTO) 10 % (0-12); NEUTROPHILS # (AUTO) 9.8 X 10^3 (1.8-7.8); NEUTROPHILS % (AUTO) 78 % (42-75); PLATELET COUNT 277 10^3/uL (130-400); RED BLOOD COUNT 4.73 10^6/uL (4.35-5.85); RED CELL DISTRIBUTION WIDTH 13.1 % (10.0-14.5); WHITE BLOOD COUNT 12.6 10^3/uL (4.3-11.0)
[2016-10-03 12:21] LABS: BILIRUBIN,URINE NEGATIVE (NEGATIVE); KETONES,URINE NEGATIVE (NEGATIVE); LEUKOCYTE ESTERASE ,URINE 3+ (NEGATIVE); NITRITE,URINE NEGATIVE (NEGATIVE); PH,URINE 6 (5-9); PROTEIN,URINE 1+ (NEGATIVE); UROBILINOGEN,URINE NORMAL (NORMAL)
[2016-10-03 12:39] LABS: ALANINE AMINOTRANSFERASE 10 U/L (0-55); ALBUMIN 3.6 GM/DL (3.2-4.5); ANION GAP 8 MMOL/L (5-14); ASPARTATE AMINO TRANSFERASE 15 U/L (5-34); BILIRUBIN,TOTAL 0.4 MG/DL (0.1-1.0); BLOOD UREA NITROGEN 13 MG/DL (7-18); BUN/CREATININE RATIO 17; CALCIUM 8.8 MG/DL (8.5-10.1); CARBON DIOXIDE 27 MMOL/L (21-32); CHLORIDE 102 MMOL/L (98-107); CREATININE SERUM 0.78 MG/DL (0.60-1.30); GFR ESTIMATED > 60; GLUCOSE 102 MG/DL (70-105); POTASSIUM 4.2 MMOL/L (3.6-5.0); SODIUM 137 MMOL/L (135-145); TOTAL PROTEIN 7.5 GM/DL (6.4-8.2)
--- NOTE | 2016-10-03 12:49 | Diagnostic Imaging Report ---
PROCEDURE: CT abdomen and pelvis without contrast. TECHNIQUE: Multiple contiguous axial images were obtained through the abdomen and pelvis without the use of intravenous contrast. INDICATION: Intermittent abdominal pain. Comparison is made to study of 08/08/2016. Unenhanced images of the liver and spleen reveal no focal abnormality. There has been placement of internal biliary stent with partial decompression of the dilated biliary tree. No focal pancreatic, adrenal or renal lesion is identified. There has been interval placement of endoluminal aortic stent graft. This is incompletely evaluated without intravenous contrast, however, the aneurysm sac is unchanged in size measuring 5.6 x 5.0 cm. Graft extends into both common iliac arteries. There is a moderate amount of stool throughout colon with largest stool burden in the right colon. Evaluation of the bladder is limited without intravenous contrast, however, there is an intraluminal calcification similar in size to the previous study. There is continued prominent impression on the bladder base from the prostate gland. IMPRESSION: Interval placement of internal biliary stent with decompression of biliary tree. There has also been interval endoluminal stent graft placement within the abdominal aorta with no significant change in aneurysm sac dimensions. Patency is not well evaluated without intravenous contrast. There is also stable intraluminal filling defect within the bladder which may be due to previous stone passage. Dictated by: Dictated on workstation # [id number]
[2016-10-03] MEDS ORDERED: cefTRIAXone INJECTION 1,000 MG in NS (IVPB) 50 ML IV ONE (13:15)
[2016-10-03] MEDS ORDERED: LEVOFLOXACIN 500 MG TAB (LEVAQUIN) PO ONE ×2 (14:15)
[2016-10-03] MEDS ORDERED: LEVO500T2 PO (14:20)
[2016-10-03] MEDS ORDERED: CEFU500T63 PO (14:20)
--- NOTE | 2016-10-03 14:21 | Diagnostic Imaging Report ---
Testicular ultrasound. INDICATION: Right testicular pain. The recent testicular ultrasound exam performed on 09/24/2016, suggested right-sided epididymis/orchitis. There was also a moderate-sized hydrocele on the right. In the interval since the prior exam the hydrocele has become complicated by infection and/or hemorrhage. There are now numerous septations extending through the hydrocele, and there is some echogenic debris amidst the septations. The scrotal wall also seems somewhat thicker than on the prior exam although there is no sign of a scrotal wall abscess. The right testicle itself also shows increased vascularity consistent with orchitis. As noted on the prior exam the right testicle is somewhat atrophic in appearance and measures only 2.6 x 2.0 x 2.4 cm. The left testicle is normal in size measuring 4.3 x 2.7 x 2.7 cm. The cysts associated with the left testicle seen previously are again evident and do not seem to have changed significantly. There is good blood flow to the left testicle, and there is no sign of torsion or of a solid mass. IMPRESSION: 1. In the interval since the prior exam the right hydrocele has become complicated by infection and/or hemorrhage. The scrotal wall also appears thicker in this area, and there may be an element of inflammation/infection of the scrotal wall as well. There is no sign of a scrotal wall abscess. 2. The right testicle is atrophic, and the increased vascularity associated with the testicle does suggest orchitis. 3. The left testicle is stable in appearance when compared to the prior exam. 4. These results were discussed with Mykel Allen APRN. Dictated by: Dictated on workstation # [id number]
[2016-10-03 15:02] VITALS: BP 130/88
== END 2016-10-03 16:26 ==
LOC: EDUNIT# 11:49 → ER 11:52
DX: N45.3 Epididymo-orchitis (principal); I10 Essential (primary) hypertension; G80.9 Cerebral palsy, unspecified; Z79.02 Long term (current) use of antithrombotics/antiplatelets; Z79.899 Other long term (current) drug therapy; Z95.0 Presence of cardiac pacemaker; Z96.89 Presence of other specified functional implants
CPT/HCPCS: 36415; 51702; 74176; 76870; 80053; 81000; 85025; 87088; 96365; 96375

== ENCOUNTER → 2017-01-13 | Outpatient (CLI) | payer MEDICARE, MEDICAID ==
[~2017-01-13] MED LIST changes: +CEFU500T63 PO; +LEVO500T2 PO
--- NOTE | 2017-01-13 21:21 | Diagnostic Imaging Report ---
EXAMINATION: Ultrasound of scrotum. INDICATION: Followup left scrotal complex cyst. FINDINGS: The right testicle is 2.7 x 1.4 x 2 cm. The left testicle is 4.9 x 2 x 2.5 cm. The right testicle is heterogeneous. No solid focal mass. There is a 3.7 x 1.7 x 2.3 cm cystic lesion with minimal septation seen along the left epididymis head. The previously seen complex fluid collection around the right testicle is not visualized at this time. No varicocele. Arterial and venous waveforms over the left testicle and over the right testicle parenchyma are seen. IMPRESSION: 1. Minimally septated left epididymal head cyst measuring 3.7 cm is again seen without change. 2. The right scrotal complex collection has resolved. 3. Stable moderate atrophy and heterogeneity of the right testicle, probably related to an old insult. Dictated by: Dictated on workstation # [id number]
== END ==
LOC: RAD 13:57
PROVIDERS: ATTEND Family Medicine
DX: N50.0 Atrophy of testis (principal); N50.89 Other specified disorders of the male genital organs
CPT/HCPCS: 76870

== ENCOUNTER 2017-01-30 15:05 | Emergency (ER) | payer MEDICARE, MEDICAID ==
[~2017-01-30] VITALS: Ht 180.3 cm; Wt 81.6 kg
[2017-01-30] MEDS ORDERED: LACTATED RINGERS 1,000 ML IV ONE (15:41)
[2017-01-30 16:05] LABS: BASOPHILS % (AUTO) 0 % (0-10); EOSINOPHILS # (AUTO) 0.2 10^3/uL (0.0-0.3); EOSINOPHILS % (AUTO) 2 % (0-10); LYMPHOCYTES # (AUTO) 1.5 X 10^3 (1.0-4.0); LYMPHOCYTES % (AUTO) 12 % (12-44); MEAN CORPUSCULAR HEMOGLOBIN 28 PG (25-34); MEAN CORPUSCULAR HGB CONC 33 G/DL (32-36); MEAN CORPUSCULAR VOLUME 83 FL (80-99); MEAN PLATELET VOLUME 9.9 FL (7.4-10.4); MONOCYTES # (AUTO) 1.3 X 10^3 (0.0-1.0); MONOCYTES % (AUTO) 10 % (0-12); NEUTROPHILS # (AUTO) 9.3 X 10^3 (1.8-7.8); NEUTROPHILS % (AUTO) 75 % (42-75); PLATELET COUNT 191 10^3/uL (130-400); RED BLOOD COUNT 5.08 10^6/uL (4.35-5.85); RED CELL DISTRIBUTION WIDTH 14.5 % (10.0-14.5); WHITE BLOOD COUNT 12.3 10^3/uL (4.3-11.0)
--- NOTE | 2017-01-30 16:14 | Diagnostic Imaging Report ---
PROCEDURE: CT urinary tract, rule out kidney stone. TECHNIQUE: Multiple contiguous axial images were obtained through the abdomen and pelvis without the use of intravenous contrast. INDICATION: Right flank pain. FINDINGS: There is an infrarenal abdominal aortic aneurysm with an endograft implanted. It is 4.9 x 5.5 cm, similar to 10/03/2016. The lung bases demonstrate no significant abnormality. The liver demonstrates pneumobilia. Cholecystectomy clips are seen in place. The pancreas and the right adrenal gland appear unremarkable. The left adrenal gland demonstrates nodularity with about a 1.5 cm left adrenal nodule identified. This is nonspecific and appears to be stable from the 2006 exam. The spleen is not enlarged. The kidneys demonstrate no hydronephrosis. No kidney or ureteric stone. There is a stone in the urinary bladder, measuring 5 mm in size. The prostate is not enlarged. There is no significant free fluid or fluid collection in the abdomen or pelvis. No bowel obstruction. Tiny fat-containing umbilical hernia is seen. The osseous structures demonstrate prominent degenerative changes about the thoracolumbar junction and in the lower lumbar spine. There are also degenerative changes in the hip joints. There is a graft partially visualized with takeoff at the level of the common femoral artery on the left side. IMPRESSION: 1. A 5 mm stone is in the urinary bladder. No kidney or ureteric stones. 2. Tiny fat-containing umbilical hernia. 3. A 5.5 cm infrarenal abdominal aortic aneurysm, similar to the previous exam, with a bifurcating aortobiiliac graft seen in place. Dictated by: Dictated on workstation # [id number]
[2017-01-30 16:24] LABS: ALANINE AMINOTRANSFERASE 15 U/L (0-55); ALBUMIN 3.7 GM/DL (3.2-4.5); AMYLASE 71 U/L (25-125); ANION GAP 11 MMOL/L (5-14); ASPARTATE AMINO TRANSFERASE 18 U/L (5-34); BILIRUBIN,TOTAL 0.4 MG/DL (0.1-1.0); BLOOD UREA NITROGEN 13 MG/DL (7-18); BUN/CREATININE RATIO 15; CALCIUM 8.6 MG/DL (8.5-10.1); CARBON DIOXIDE 25 MMOL/L (21-32); CHLORIDE 103 MMOL/L (98-107); CREATININE SERUM 0.85 MG/DL (0.60-1.30); GFR ESTIMATED > 60; GLUCOSE 149 MG/DL (70-105); LIPASE 14 U/L (8-78); POTASSIUM 4.1 MMOL/L (3.6-5.0); SODIUM 139 MMOL/L (135-145); TOTAL PROTEIN 7.9 GM/DL (6.4-8.2)
--- NOTE | 2017-01-30 16:41 | ED Abdominal Pain ---
General Chief Complaint: Back Problems Stated Complaint: RT FLANK PAIN Nursing Triage Note: Pt c/o R flank pain since last night. Pt here from [facility]. Pt denying pain at this time but states pain is worse when lying flat. Sepsis Screen: No Definite Risk Source of Information: Patient (VAGUE, VERY DIFFICULT AND LIMITED HISTORIAN), Prison Records History of Present Illness Time Seen By Provider: 15:42 Initial Comments PT ARRIVES VIA POV FROM [facility]. NO STAFF ACCOMPANY PT INTO ER C/O RIGHT FLANK PAIN OFF AND ON SINCE LAST PM--WENT AWAY LAST PM, AND WAS ABLE TO SLEEP ALL NIGHT. PAIN RETURNED AGAIN THIS AM WHILE EATING BREAKFAST. LASTED UNKNOWN LENGTH OF TIME, AND IS GONE NOW NOTHING WORSENS OR IMPROVES PAIN NO NAUSEA/VOMITING NO KNOWN FEVER OR SWEATS PT HAS NEUROGENIC BLADDER??--STATES HIS BLADDER "DOESN'T WORK" AND HE HAS DONE SELF-CATH'S FOR "40 YEARS"--VOIDING NORMAL AMOUNT AND URINE IS NORMAL COLOR PCP: DR. DENNEY Allergies and Home Medications Allergies Coded Allergies: No Known Drug Allergies (Verified , 12/20/13) Home Medications Acetaminophen 325 Mg Tab, 650 MG PO Q6H PRN for PAIN, (Reported) TAKES 2 (325MG) TABLETS Amlodipine Besylate 2.5 Mg Tab, 2.5 MG PO DAILY, (Reported) Cefuroxime Axetil 500 Mg Tablet, 500 MG PO BID, #20 Prescribed by: ILOR COOK on 10/03/16 1420 Celecoxib 200 Mg Capsule, 200 MG PO DAILY, (Reported) Clopidogrel Bisulfate 75 Mg Tablet, 75 MG PO DAILY, (Reported) Docusate Sodium 100 Mg Cap, 100 MG PO DAILY, (Reported) Gabapentin 300 Mg Tablet, 900 MG PO HS, (Reported) TAKES 3 (300MG) CAPSULES Loratadine 10 Mg Tablet, 10 MG PO DAILY PRN for ALLERGIES, (Reported) Menthol 118 Ml Gel..ml., TP Q6H PRN for PAIN, (Reported) APPLY TO LOWER BACK Metoprolol Tartrate 100 Mg Tablet, 50 MG PO BID, (Reported) TAKES 1/2 (100MG) TABLET Nitrofurantoin Monohyd/M-Cryst 100 Mg Capsule, 100 MG PO BID, #20 Prescribed by: MILO GAMBOA on 01/30/17 1724 Ondansetron Hcl 4 Mg Tab, 4 MG PO Q6H PRN for NAUSEA/VOMITING, (Reported) Promethazine Hcl 6.25 Mg/5 Ml Syrup, 5 ML PO Q6H PRN for COUGH, (Reported) Promethazine/Codeine 5 Ml Syrp, 10 ML PO Q8H PRN for COUGH, (Reported) Sod Phosphate/Sod Biphosphate 1 Ea Enem, 1 EA [place] DAILY PRN for CONSTIPATION, ( Reported) Tramadol Hcl 50 Mg Tablet, 50 MG PO 0400, 1200, 2000, (Reported) Triamcinolone Acet 15 Gm Cr, TOP PRN PRN for RASH, (Reported) APPLY TO FACE TOPICALLY NEEDED FOR SKIN CONDITION- RASH RELATED TO CANDIDIASIS OF SKIN AND NAILS Review of Systems Constitutional: no symptoms reported Respiratory: No Symptoms Reported Cardiovascular: No Symptoms Reported Gastrointestinal: See HPI Genitourinary: See HPI Musculoskeletal: see HPI Skin: no symptoms reported, No rash Psychiatric/Neurological: No Symptoms Reported Endocrine: No Symptoms Reported Hematologic/Lymphatic: No Symptoms Reported Past Lcaulju-Mraskr-Sflbsj Hx Patient Social History Alcohol Use: Denies Use Recreational Drug Use: No Smoking Status: Never a Smoker 2nd Hand Smoke Exposure: No Recent Foreign Travel: No Contact w/Someone Who Travel: No Recent Infectious Disease Expo: No Recent Hopitalizations: No Immunizations Up To Date Tetanus Booster (TDap): Less than 5yrs PED Vaccines UTD: Yes Date of Pneumonia Vaccine: Dec 21, 2013 Date of Influenza Vaccine: Dec 21, 2013 Seasonal Allergies Seasonal Allergies: Yes Surgeries History of Surgeries: Yes (ROSIE 04/2006; HERNIA REPAIRS; AORTO-BILATERAL ILIAC STENT / ENDOGRAFT FOR AAA; ) Surgeries: Abdominal, Gallbladder, Pacemaker, Vascular Surgery, Vasectomy Respiratory History of Respiratory Disorde: No Cardiovascular History of Cardiac Disorders: Yes (3rd degree heart block; PACEMAKER; INFRARENAL AAA-S/P [id number] STENT/ENDOGRAFT;) Cardiac Disorders: Aneurysm, Hypertension Neurological History of Neurological Disord: Yes Neurological Disorders: Cerebral Palsy Reproductive System Hx Reproductive Disorders: No Sexually Transmitted Disease: Yes ("CLAP" AT AGE 15) Genitourinary History of Genitourinary Disor: Yes (SELF-CATH'S X 40 YEARS, PER PT ON 01/30/17 ) Genitourinary Disorders: Benign Prostatic Hyperpl, Prostate Problems, Neurogenic Bladder, UTI-Chronic Gastrointestinal History of Gastrointestinal Di: Yes Gastrointestinal Disorders: Gastroesophageal Reflux, Chronic Constipation, Gall Bladder Disease Musculoskeletal History of Musculoskeletal Dis: Yes (GENERALIZED WEAKNESS, GAIT DISTURBANCE) Musculoskeletal Disorders: Arthritis Endocrine History of Endocrine Disorders: No HEENT History of HEENT Disorders: Yes HEENT Disorders: Cataract, Glaucoma Cancer History of Cancer: No Psychosocial History of Psychiatric Problem: No Integumentary History of Skin or Integumenta: Yes (CANDIDIASIS OF SKIN AND NAIL) Blood Transfusions History of Blood Disorders: No Family Medical History Family Medial History: FH: throat cancer 19 MOTHER Physical Exam Vital Signs VS - Last 72 Hours, by Label 01/30/17 15:17 Temp 98.8 Pulse 80 Resp 18 B/P (MAP) 134/85 (101) Pulse Ox 93 O2 Delivery Room Air Capillary Refill : Less Than 3 Seconds General Appearance: WD/WN, no apparent distress, other (LAYING, RESTING QUIETLY WITH EYES CLOSED, DOES NOT APPEAR TO BE IN ANY DISCOMFORT. ) HEENT: PERRL/EOMI, other (POOR DENTITION--MULTIPLE MISSING TEETH) Neck: normal inspection Respiratory: normal breath sounds, no respiratory distress, no accessory muscle use Cardiovascular: regular rate, rhythm, no murmur Gastrointestinal: normal bowel sounds, soft, no organomegaly, No distended, No guarding, No rebound, tenderness (MILD RUQ/RIGHT MID-FLANK TENDERNESS), No hernia, No mass Extremities: normal inspection, no pedal edema, normal capillary refill Back: CVA tenderness (R) Neurologic/Psychiatric: academic vice president II-XII nml as tested, no motor/sensory deficits, alert, normal mood/affect, oriented x 3 Skin: normal color, warm/dry, No rash Progress/Results/Core Measures Results/Orders Lab Results Laboratory Tests Test 01/30/17 15:43 01/30/17 16:30 Range/Units White Blood Count 12.3 H 4.3-11.0 10^3/uL Red Blood Count 5.08 4.35-5.85 10^6/uL Hemoglobin 14.1 13.3-17.7 G/DL Hematocrit 42 40-54 % Mean Corpuscular Volume 83 80-99 FL Mean Corpuscular Hemoglobin 28 25-34 PG Mean Corpuscular Hemoglobin Concent 33 32-36 G/DL Red Cell Distribution Width 14.5 10.0-14.5 % Platelet Count 191 130-400 10^3/uL Mean Platelet Volume 9.9 7.4-10.4 FL Neutrophils (%) (Auto) 75 42-75 % Lymphocytes (%) (Auto) 12 12-44 % Monocytes (%) (Auto) 10 0-12 % Eosinophils (%) (Auto) 2 0-10 % Basophils (%) (Auto) 0 0-10 % Neutrophils # (Auto) 9.3 H 1.8-7.8 X 10^3 Lymphocytes # (Auto) 1.5 1.0-4.0 X 10^3 Monocytes # (Auto) 1.3 H 0.0-1.0 X 10^3 Eosinophils # (Auto) 0.2 0.0-0.3 10^3/uL Basophils # (Auto) 0.0 0.0-0.1 10^3/uL Sodium Level 139 135-145 MMOL/L Potassium Level 4.1 3.6-5.0 MMOL/L Chloride Level 103 98-107 MMOL/L Carbon Dioxide Level 25 21-32 MMOL/L Anion Gap 11 5-14 MMOL/L Blood Urea Nitrogen 13 7-18 MG/DL Creatinine 0.85 0.60-1.30 MG/DL Estimat Glomerular Filtration Rate > 60 BUN/Creatinine Ratio 15 Glucose Level 149 H 70-105 MG/DL Calcium Level 8.6 8.5-10.1 MG/DL Total Bilirubin 0.4 0.1-1.0 MG/DL Aspartate Amino Transf (AST/SGOT) 18 5-34 U/L Alanine Aminotransferase (ALT/SGPT) 15 0-55 U/L Alkaline Phosphatase 96 40-136 U/L Total Protein 7.9 6.4-8.2 GM/DL Albumin 3.7 3.2-4.5 GM/DL Amylase Level 71 25-125 U/L Lipase 14 8-78 U/L Urine Color YELLOW Urine Clarity CLEAR Urine pH 7 5-9 Urine Specific [place] 1.005 L 1.016-1.022 Urine Protein NEGATIVE NEGATIVE Urine Glucose (UA) NEGATIVE NEGATIVE Urine Ketones NEGATIVE NEGATIVE Urine Nitrite POSITIVE H NEGATIVE Urine Bilirubin NEGATIVE NEGATIVE Urine Urobilinogen NORMAL NORMAL MG/DL Urine Leukocyte Esterase 2+ H NEGATIVE Urine RBC (Auto) 1+ H NEGATIVE Urine RBC RARE /HPF Urine WBC 10-25 H /HPF Urine Crystals NONE /LPF Urine Bacteria LARGE H /HPF Urine Casts NONE /LPF Urine Mucus NEGATIVE /LPF Urine Culture Indicated YES My Orders Orders - MILO GAMBOA DO Ct Abd/Pelvis Wo(Kidney Stone) (01/30/17 15:41) Amylase (01/30/17 15:41) Cbc With Automated Diff (01/30/17 15:41) Comprehensive Metabolic Panel (01/30/17 15:41) Lipase (01/30/17 15:41) Ua Culture If Indicated (01/30/17 15:41) Acute Abd Series (01/30/17 15:41) Saline Lock/Iv-Start (01/30/17 15:41) Saline Lock/Iv-Start (01/30/17 15:41) Lactated Ringers (Lr 1000 Ml Iv Solution (01/30/17 15:41) Urine Culture (01/30/17 16:30) Nitrofurantoin Capsule,Macro (Macrobid C (01/30/17 17:45) Medications Given in ED Current Medications Medications Dose Ordered Sig/Manuel Route Start Time Stop Time Status Last Admin Dose Admin Lactated Ringer's 1,000 ml @ 0 mls/hr Q0M ONCE IV 01/30/17 15:41 01/30/17 15:43 DC 01/30/17 15:59 1,000 MLS/HR Vital Signs/I&O Vital Sign - Last 12Hours 01/30/17 15:17 Temp 98.8 Pulse 80 Resp 18 B/P (MAP) 134/85 (101) Pulse Ox 93 O2 Delivery Room Air Blood Pressure Mean: 101 Progress Note : Progress Note NO PAIN DURING ER STAY Diagnostic Imaging Comments CT ABDOMEN/PELVIS--5 MM STONE IN BLADDER, STABLE LEFT ADRENAL NODULE, TINY UMBILICAL HERNIA, STABLE 5.5 CM INFRA-RENAL AAA WITH BIFURCATING [id number] STENT IN PLACE--PER RADIOLOGIST REPORT @ 1618 Reviewed: Reviewed by Me Departure Impression Impression: Primary Impression: RENAL STONE, PASSED INTO BLADDER Additional Impression: UTI (urinary tract infection) Disposition: 01 HOME, SELF-CARE Condition: Improved Departure-Patient Inst. Referrals: AMY DENNEY DO (PCP/Family) Primary Care Physician Patient Instructions: Kidney Stones (DC), Urinary Tract Infection, Adult (DC) Add. Discharge Instructions: STRAIN ALL URINE --RETURN ANY STONES TO YOUR DR'S OFFICE TAKE YOUR HOME PAIN MEDICATIONS NEEDED FOR PAIN FOLLOW UP WITH DR. DENNEY NEXT WEEK FOR FURTHER CARE All discharge instructions reviewed with patient and/or family. Voiced understanding. Scripts Nitrofurantoin Monohyd/M-Cryst (Macrobid 100 mg Capsule) 100 Mg Capsule 100 MG PO BID, #20 CAP Prov: MILO GAMBOA DO 01/30/17 MILO GAMBOA DO Jan 30, 2017 16:41
[2017-01-30 17:15] LABS: BILIRUBIN,URINE NEGATIVE (NEGATIVE); KETONES,URINE NEGATIVE (NEGATIVE); LEUKOCYTE ESTERASE ,URINE 2+ (NEGATIVE); NITRITE,URINE POSITIVE (NEGATIVE); PH,URINE 7 (5-9); PROTEIN,URINE NEGATIVE (NEGATIVE); UROBILINOGEN,URINE NORMAL (NORMAL)
[2017-01-30] MEDS ORDERED: NITR-65 PO (17:24)
[2017-01-30 17:41] VITALS: BP 166/89
[2017-01-30] MEDS ORDERED: NITROFURANTOIN 100 MG (MACROBID) CAPSULE PO ONE (17:45)
== END 2017-01-30 17:46 | disposition home or self-care (01) ==
LOC: EDUNIT# 15:05 → ER 15:06
DX: N20.0 Calculus of kidney (principal); N39.0 Urinary tract infection, site not specified; I10 Essential (primary) hypertension; G80.9 Cerebral palsy, unspecified; N40.0 Benign prostatic hyperplasia without lower urinary tract symptoms; K21.9 Gastro-esophageal reflux disease without esophagitis; Z80.0 Family history of malignant neoplasm of digestive organs; Z87.19 Personal history of other diseases of the digestive system; Z90.49 Acquired absence of other specified parts of digestive tract; Z95.0 Presence of cardiac pacemaker; Z98.52 Vasectomy status; Z95.820 Peripheral vascular angioplasty status with implants and grafts
CPT/HCPCS: 36415; 74176; 80053; 81000; 82150; 83690; 85025; 87077; 87088; 87186

== ENCOUNTER 2017-02-13 09:56 | Inpatient (IN) | payer MEDICARE, MEDICAID ==
[~2017-02-13] VITALS: Ht 180.3 cm; Wt 81.6 kg
[~2017-02-13 09:56] MED LIST changes: +NITR-65 PO
--- NOTE | 2017-02-13 10:41 | ED Cough/URI ---
General Chief Complaint: Cough/Cold/Flu Symptoms Stated Complaint: FEVER 103 Nursing Triage Note: TO ED PER W/C WITH FEVER ONSET TODAY. PATIENT REPORTS STARTED FEELING BAD YESTERDAY PM WITH BODY ACHES AND COUGH Source: patient Exam Limitations: no limitations History of Present Illness Time seen by provider: 10:40 Initial Comments To ER per EMS from senior care with reports of fever up to 103 since yesterday. Productive cough, general body aches. Timing/Duration: yesterday Severity/Quality: productive cough Associated Symptoms: cough Allergies and Home Medications Allergies Coded Allergies: No Known Drug Allergies (Verified , 12/20/13) Home Medications Acetaminophen 325 Mg Tab, 650 MG PO Q6H PRN for PAIN, (Reported) TAKES 2 (325MG) TABLETS Amlodipine Besylate 2.5 Mg Tab, 2.5 MG PO DAILY, (Reported) Cefuroxime Axetil 500 Mg Tablet, 500 MG PO BID, #20 Prescribed by: LIOR COOK on 10/03/16 1420 Celecoxib 200 Mg Capsule, 200 MG PO DAILY, (Reported) Clopidogrel Bisulfate 75 Mg Tablet, 75 MG PO DAILY, (Reported) Docusate Sodium 100 Mg Cap, 100 MG PO DAILY, (Reported) Gabapentin 300 Mg Tablet, 900 MG PO HS, (Reported) TAKES 3 (300MG) CAPSULES Loratadine 10 Mg Tablet, 10 MG PO DAILY PRN for ALLERGIES, (Reported) Menthol 118 Ml Gel..ml., TP Q6H PRN for PAIN, (Reported) APPLY TO LOWER BACK Metoprolol Tartrate 100 Mg Tablet, 50 MG PO BID, (Reported) TAKES 1/2 (100MG) TABLET Nitrofurantoin Monohyd/M-Cryst 100 Mg Capsule, 100 MG PO BID, #20 Prescribed by: MILO GAMBOA on 01/30/17 1724 Ondansetron Hcl 4 Mg Tab, 4 MG PO Q6H PRN for NAUSEA/VOMITING, (Reported) Promethazine Hcl 6.25 Mg/5 Ml Syrup, 5 ML PO Q6H PRN for COUGH, (Reported) Promethazine/Codeine 5 Ml Syrp, 10 ML PO Q8H PRN for COUGH, (Reported) Sod Phosphate/Sod Biphosphate 1 Ea Enem, [address] DAILY PRN for CONSTIPATION, ( Reported) Tramadol Hcl 50 Mg Tablet, 50 MG PO 0400, 1200, 2000, (Reported) Triamcinolone Acet 15 Gm Cr, TOP PRN PRN for RASH, (Reported) APPLY TO FACE TOPICALLY NEEDED FOR SKIN CONDITION- RASH RELATED TO CANDIDIASIS OF SKIN AND NAILS Constitutional: see HPI EENTM: see HPI Respiratory: see HPI, cough Cardiovascular: no symptoms reported Genitourinary: no symptoms reported Musculoskeletal: no symptoms reported Skin: no symptoms reported Psychiatric/Neurological: No Symptoms Reported Hematologic/Lymphatic: No Symptoms Reported Past Bddaiof-Wcqslw-Edpygh Hx Patient Social History Alcohol Use: Denies Use Recreational Drug Use: No Smoking Status: Never a Smoker 2nd Hand Smoke Exposure: No Recent Foreign Travel: No Contact w/Someone Who Travel: No Recent Infectious Disease Expo: No Recent Hopitalizations: No Immunizations Up To Date Tetanus Booster (TDap): Less than 5yrs PED Vaccines UTD: Yes Date of Pneumonia Vaccine: Dec 21, 2013 Date of Influenza Vaccine: Dec 21, 2013 Seasonal Allergies Seasonal Allergies: Yes Surgeries History of Surgeries: Yes Surgeries: Abdominal, Gallbladder, Pacemaker, Vascular Surgery, Vasectomy Respiratory History of Respiratory Disorde: No Cardiovascular History of Cardiac Disorders: Yes Cardiac Disorders: Aneurysm, Hypertension Neurological History of Neurological Disord: Yes Neurological Disorders: Cerebral Palsy Reproductive System Hx Reproductive Disorders: No Sexually Transmitted Disease: Yes ("CLAP" AT AGE 15) Genitourinary History of Genitourinary Disor: Yes (SELF-CATH'S X 40 YEARS, PER PT ON 01/30/17 ) Genitourinary Disorders: Benign Prostatic Hyperpl, Prostate Problems, Neurogenic Bladder, UTI-Chronic Gastrointestinal History of Gastrointestinal Di: Yes Gastrointestinal Disorders: Gastroesophageal Reflux, Chronic Constipation, Gall Bladder Disease Musculoskeletal History of Musculoskeletal Dis: Yes (GENERALIZED WEAKNESS, GAIT DISTURBANCE) Musculoskeletal Disorders: Arthritis Endocrine History of Endocrine Disorders: No HEENT History of HEENT Disorders: Yes HEENT Disorders: Cataract, Glaucoma Cancer History of Cancer: No Psychosocial History of Psychiatric Problem: No Integumentary History of Skin or Integumenta: Yes (CANDIDIASIS OF SKIN AND NAIL) Blood Transfusions History of Blood Disorders: No Family Medical History Family Medial History: FH: throat cancer 19 MOTHER Physical Exam Vital Signs Vital Sign - Last 12Hours 02/13/17 09:59 Temp 101.6 Pulse 106 Resp 18 Pulse Ox 94 O2 Delivery Room Air Capillary Refill : Less Than 3 Seconds General Appearance: WD/WN, no apparent distress Eyes: Bilateral Eye Normal Inspection, Bilateral Eye PERRL, Bilateral Eye EOMI HEENT: PERRL/EOMI, normal ENT inspection Neck: non-tender, full range of motion Respiratory: normal breath sounds, no respiratory distress, no accessory muscle use Cardiovascular: regular rate, rhythm, no murmur Gastrointestinal: normal bowel sounds, non tender Extremities: normal range of motion, non-tender Neurologic/Psychiatric: alert, normal mood/affect, oriented x 3 Skin: normal color, warm/dry Focused Exam Evaluation Lactate Level Laboratory Tests 02/13/17 11:01: Lactic Acid Level 2.15*H Lactic Acid Level Laboratory Tests Test 02/13/17 11:01 Lactic Acid Level 2.15 MMOL/L (0.50-2.00) *H Progress/Results/Core Measures Suspected Sepsis Recent Fever Within 48 Hours: Yes Infection Criteria Present: Suspected New Infection New/Unexplained Altered Menta: No Sepsis Screen: Possible Sepsis Risk Sepsis Diagnosis: SIRS Temperature:101.6 Pulse: 106 Respiratory Rate: 18 Laboratory Tests 02/13/17 11:01: White Blood Count 18.1H Blood Pressure / Mean: Laboratory Tests 02/13/17 11:01: Lactic Acid Level 2.15*H Laboratory Tests 02/13/17 11:01: Creatinine 0.86, Platelet Count 214, Total Bilirubin 0.4 Results/Orders Lab Results Laboratory Tests Test 02/13/17 11:01 02/13/17 11:21 Range/Units White Blood Count 18.1 H 4.3-11.0 10^3/uL Red Blood Count 5.21 4.35-5.85 10^6/uL Hemoglobin 14.4 13.3-17.7 G/DL Hematocrit 38 L 40-54 % Mean Corpuscular Volume 72 L 80-99 FL Mean Corpuscular Hemoglobin 28 25-34 PG Mean Corpuscular Hemoglobin Concent 38 H 32-36 G/DL Red Cell Distribution Width 14.1 10.0-14.5 % Platelet Count 214 130-400 10^3/uL Mean Platelet Volume 8.8 7.4-10.4 FL Neutrophils (%) (Auto) 91 H 42-75 % Lymphocytes (%) (Auto) 4 L 12-44 % Monocytes (%) (Auto) 5 0-12 % Eosinophils (%) (Auto) 0 0-10 % Basophils (%) (Auto) 0 0-10 % Neutrophils # (Auto) 16.5 H 1.8-7.8 X 10^3 Lymphocytes # (Auto) 0.7 L 1.0-4.0 X 10^3 Monocytes # (Auto) 0.9 0.0-1.0 X 10^3 Eosinophils # (Auto) 0.1 0.0-0.3 10^3/uL Basophils # (Auto) 0.0 0.0-0.1 10^3/uL Neutrophils % (Manual) 88 % Lymphocytes % (Manual) 7 % Monocytes % (Manual) 2 % Eosinophils % (Manual) 0 % Basophils % (Manual) 0 % Band Neutrophils 3 % Blood Morphology Comment NORMAL Sodium Level 140 135-145 MMOL/L Potassium Level 4.4 3.6-5.0 MMOL/L Chloride Level 105 98-107 MMOL/L Carbon Dioxide Level 26 21-32 MMOL/L Anion Gap 9 5-14 MMOL/L Blood Urea Nitrogen 17 7-18 MG/DL Creatinine 0.86 0.60-1.30 MG/DL Estimat Glomerular Filtration Rate > 60 BUN/Creatinine Ratio 20 Glucose Level 111 H 70-105 MG/DL Lactic Acid Level 2.15 *H 0.50-2.00 MMOL/L Calcium Level 8.6 8.5-10.1 MG/DL Total Bilirubin 0.4 0.1-1.0 MG/DL Aspartate Amino Transf (AST/SGOT) 24 5-34 U/L Alanine Aminotransferase (ALT/SGPT) 20 0-55 U/L Alkaline Phosphatase 83 40-136 U/L Total Protein 7.7 6.4-8.2 GM/DL Albumin 3.7 3.2-4.5 GM/DL Urine Color YELLOW Urine Clarity VERY CLOUDY H Urine pH 5 5-9 Urine Specific [place] 1.020 1.016-1.022 Urine Protein NEGATIVE NEGATIVE Urine Glucose (UA) NEGATIVE NEGATIVE Urine Ketones NEGATIVE NEGATIVE Urine Nitrite POSITIVE H NEGATIVE Urine Bilirubin NEGATIVE NEGATIVE Urine Urobilinogen NORMAL NORMAL MG/DL Urine Leukocyte Esterase 3+ H NEGATIVE Urine RBC (Auto) 1+ H NEGATIVE Urine RBC NONE /HPF Urine WBC 25-50 H /HPF Urine Squamous Epithelial Cells RARE /HPF Urine Crystals NONE /LPF Urine Bacteria LARGE H /HPF Urine Casts NONE /LPF Urine Mucus NEGATIVE /LPF Urine Culture Indicated YES Micro Results Microbiology 02/13/17 Influenza Types A,B Antigen (SILVINA) - Final, Complete My Orders Orders - LIOR COOK APRN Chest 1 View, Ap/Pa Only (02/13/17 10:38) Influenza A And B Antigens (02/13/17 10:38) Albuterol/Ipra Inhalation Soln (Duoneb I (02/13/17 11:00) Svn Sm Volume Nebulizer Rt-Rfs (02/13/17 10:51) Saline Lock/Iv-Start (02/13/17 10:51) Piperacillin Sodium/Tazobactam (Zosyn Vi (02/13/17 11:30) Ibuprofen Tablet (Motrin Tablet) (02/13/17 11:30) Ns Iv 1000 Ml (Sodium Chloride 0.9%) (02/13/17 11:45) Medications Given in ED Current Medications Medications Dose Ordered Sig/Manuel Route Start Time Stop Time Status Last Admin Dose Admin Albuterol/ Ipratropium 3 ml ONCE ONCE INH 02/13/17 11:00 02/13/17 11:01 DC 02/13/17 10:57 3 ML Ibuprofen 600 mg ONCE ONCE PO 02/13/17 11:30 02/13/17 11:31 DC 02/13/17 12:00 600 MG Vital Signs/I&O Vital Sign - Last 12Hours 02/13/17 02/13/17 09:59 10:58 Temp 101.6 Pulse 106 Resp 18 B/P (MAP) Pulse Ox 94 94 O2 Delivery Room Air Room Air Capillary Refill : Less Than 3 Seconds Diagnostic Imaging Diagonstic Imaging: Xray Plain Films/CT/US/NM/MRI: chest Comments NAME: BLANCAAMY Arlen [facility] REC#: [id number] PT STATUS: REG ER : 1945 PHYSICIAN: LIOR COOK APRN ADMIT DATE: 02/13/17/ER Draft Date of Exam:02/13/17 CHEST 1 VIEW, AP/PA ONLY Portable erect AP chest at 1047 hours. INDICATION: Fever, cough. FINDINGS: The heart size is within normal limits and stable when compared to 08/08/16. The left-sided pacemaker seen previously is again evident and no different. The lungs remain clear and hyperexpanded. There is still no sign of failure, pneumonia or pleural effusion to indicate an acute abnormality. The mediastinum is not widened. The osseous structures are intact. IMPRESSION: There is no evidence for active disease. When compared to the prior study, there has been no significant change. Dictated on workstation # [id number] Dict: 02/13/17 1053 Trans: 02/13/17 1108 [id number] Interpreted by: TAYA EISENBERG MD Electronically signed by: Departure Communication (Admissions) Time/Spoke to Admitting Phy: 12:10 Communication Discussed the case with Dr. Dr. Denney. We will admit the patient, Zosyn, IV fluids, repeat lactic acid, repeat labs and chest x-ray in the morning. Progress Notes Patient's paperwork from the senior care states he is a DO NOT RESUSCITATE so I will continue that here. Impression Impression: Primary Impression: Pneumonia Additional Impressions: Sepsis Urinary tract infection Disposition: ADMITTED INPATIENT Condition: Stable Admissions Decision to Admit Reason: Admit from ER (General) Decision to Admit/Date: Feb 13, 2017 Time/Decision to Admit Time: 12:11 Departure-Patient Inst. Referrals: AMY DENNEY DO (PCP/Family) Primary Care Physician LIOR COOK APRN Feb 13, 2017 10:41
[2017-02-13] MEDS ORDERED: RT-ALBUTEROL/IPRATROPIUM 3 ML (DUONEB) VIAL INH ONE (11:00)
--- NOTE | 2017-02-13 11:08 | Diagnostic Imaging Report ---
Portable erect AP chest at 1047 hours. INDICATION: Fever, cough. FINDINGS: The heart size is within normal limits and stable when compared to 08/08/16. The left-sided pacemaker seen previously is again evident and no different. The lungs remain clear and hyperexpanded. There is still no sign of failure, pneumonia or pleural effusion to indicate an acute abnormality. The mediastinum is not widened. The osseous structures are intact. IMPRESSION: There is no evidence for active disease. When compared to the prior study, there has been no significant change. Dictated by: Dictated on workstation # [id number]
[2017-02-13 11:13] LABS: BASOPHILS % (AUTO) 0 % (0-10); EOSINOPHILS # (AUTO) 0.1 10^3/uL (0.0-0.3); EOSINOPHILS % (AUTO) 0 % (0-10); HEMATOCRIT 38 % (40-54); HEMOGLOBIN 14.4 G/DL (13.3-17.7); LYMPHOCYTES # (AUTO) 0.7 X 10^3 (1.0-4.0); LYMPHOCYTES % (AUTO) 4 % (12-44); MEAN CORPUSCULAR HEMOGLOBIN 28 PG (25-34); MEAN CORPUSCULAR HGB CONC 38 G/DL (32-36); MEAN CORPUSCULAR VOLUME 72 FL (80-99); MEAN PLATELET VOLUME 8.8 FL (7.4-10.4); MONOCYTES # (AUTO) 0.9 X 10^3 (0.0-1.0); MONOCYTES % (AUTO) 5 % (0-12); NEUTROPHILS # (AUTO) 16.5 X 10^3 (1.8-7.8); NEUTROPHILS % (AUTO) 91 % (42-75); PLATELET COUNT 214 10^3/uL (130-400); RED BLOOD COUNT 5.21 10^6/uL (4.35-5.85); RED CELL DISTRIBUTION WIDTH 14.1 % (10.0-14.5); WHITE BLOOD COUNT 18.1 10^3/uL (4.3-11.0)
[2017-02-13] MEDS ORDERED: IBUPROFEN TABLET 200 MG TAB PO ONE (11:30)
[2017-02-13] MEDS ORDERED: PIPERACILLIN SODIUM/TAZOBACTAM 4.5 GM in NS (IVPB) 100 ML IV ONE (11:30)
[2017-02-13 11:34] LABS: BILIRUBIN,URINE NEGATIVE (NEGATIVE); CLARITY,URINE VERY CLOUDY; COLOR,URINE YELLOW; GLUCOSE, URINE (UA) NEGATIVE (NEGATIVE); KETONES,URINE NEGATIVE (NEGATIVE); LEUKOCYTE ESTERASE ,URINE 3+ (NEGATIVE); NITRITE,URINE POSITIVE (NEGATIVE); PH,URINE 5 (5-9); PROTEIN,URINE NEGATIVE (NEGATIVE); UROBILINOGEN,URINE NORMAL (NORMAL)
[2017-02-13 11:34] LABS: ALANINE AMINOTRANSFERASE 20 U/L (0-55); ALBUMIN 3.7 GM/DL (3.2-4.5); ALKALINE PHOSPHATASE 83 U/L (40-136); BILIRUBIN,TOTAL 0.4 MG/DL (0.1-1.0); BUN/CREATININE RATIO 20; CALCIUM 8.6 MG/DL (8.5-10.1); CARBON DIOXIDE 26 MMOL/L (21-32); CHLORIDE 105 MMOL/L (98-107); CREATININE SERUM 0.86 MG/DL (0.60-1.30); GFR ESTIMATED > 60; GLUCOSE 111 MG/DL (70-105); POTASSIUM 4.4 MMOL/L (3.6-5.0); SODIUM 140 MMOL/L (135-145); TOTAL PROTEIN 7.7 GM/DL (6.4-8.2)
[2017-02-13 11:37] LABS: BAND NEUTROPHILS 3 %; BASOPHILS % (MANUAL) 0 %; EOSINOPHILS % (MANUAL) 0 %; LYMPHOCYTES % (MANUAL) 7 %; MONOCYTES % (MANUAL) 2 %; NEUTROPHILS % (MANUAL) 88 %; RBC MORPH NORMAL
[2017-02-13 11:43] LABS: BACTERIA,URINE LARGE /HPF; SQUAMOUS EPITHELIAL CELL,UR RARE /HPF; WBC,URINE 25-50 /HPF
[2017-02-13] MEDS ORDERED: NS IV 1000 ML 1,000 ML IV SCH (11:45)
[2017-02-13] MEDS ORDERED: ACETAMINOPHEN 325 MG TABLET/CAPLET (TYLENOL) PO PRN (13:30)
[2017-02-13] MEDS ORDERED: PIPERACILLIN/TAZOBACTAM 4.5 GM/NS 100 ML IVPB IV SCH ×2 (14:00)
[2017-02-13] MEDS ORDERED: LACT1TAB9 PO (14:10)
[2017-02-13] MEDS ORDERED: METO50TA15 PO (14:10)
[2017-02-13] MEDS ORDERED: MAGN400O7 PO (14:10)
[2017-02-13] MEDS ORDERED: ASCO-262 PO (14:10)
[2017-02-13] MEDS ORDERED: DOCU100C37 PO (14:10)
[2017-02-13] MEDS ORDERED: CLOP75TA69 PO (14:10)
[2017-02-13] MEDS ORDERED: CRAN450T9 PO (14:10)
[2017-02-13] MEDS ORDERED: CYCL10TA9 PO (14:10)
[2017-02-13] MEDS ORDERED: GABA-488 PO (14:10)
[2017-02-13] MEDS ORDERED: AMLO2.5T PO (14:10)
[2017-02-13] MEDS ORDERED: POTA10TA36 PO (14:10)
[2017-02-13] MEDS ORDERED: ASPI-983 PO (14:10)
[2017-02-13] MEDS ORDERED: TR1C15 TP (14:10)
[2017-02-13] MEDS ORDERED: TRAM50TA2 PO (14:10)
[2017-02-13] MEDS: NS IV 1000 ML 1,000 ML IV SCH ×4 (14:14→19:03)
[2017-02-13] MEDS ORDERED: NS IV 500 ML 500 ML IV SCH ×2 (14:30→16:30)
[2017-02-13] MEDS ORDERED: RT-ALBUTEROL SULF 2.5 MG/3 ML PRE-MIX VIAL INH PRN (14:30)
[2017-02-13 16:00] VITALS: BP 116/58
[2017-02-13 18:00] VITALS: BP 115/69
--- NOTE | 2017-02-13 18:55 | History & Physicial ---
History of Present Illness History of Present Illness Reason for visit/HPI patient resident of senior living an [facility] Patient running an elevated temperature f 103. Patient shaking all over. Patient coughing and congested. Patient sent out to the emergency Surgeries abdominal surgery 2 and gallbladder white blood cell count 18,000. Serum lactic acid above to area Impression pneumonia. Sepsis. UTI. Second lactic acid over 4.83 from over 2 Date of Admission Feb 13, 2017 at 11:37 Time Seen by Provider: 08:35 I consulted on this patient on 02/13/17 18:50 Attending Physician Bo Dneney DO Admitting Physician Bo Denney DO Consult Allergies and Home Medications Allergies Coded Allergies: No Known Drug Allergies (Verified , 12/20/13) Home Medications Amlodipine Besylate 2.5 Mg Tablet, 2.5 MG PO DAILY, (Reported) Ascorbate Calcium 500 Mg Tablet, 500 MG PO DAILY, (Reported) Aspirin 81 Mg Tablet.dr, 81 MG PO DAILY, (Reported) Clopidogrel Bisulfate 75 Mg Tablet, 75 MG PO DAILY, (Reported) Cranberry Fruit 450 Mg Tablet, 450 MG PO BID, (Reported) Cyclobenzaprine HCl 10 Mg Tablet, 10 MG PO BID, (Reported) Docusate Sodium 100 Mg Capsule, 100 MG PO TID, (Reported) Gabapentin 300 Mg Capsule, 900 MG PO HS, (Reported) TAKES 3 (300MG) CAPSULES Lactobacillus Acidophilus 1 Each Tablet, 1 TAB PO BID, (Reported) ORDER DATE 02-04-17 END DATE 02-14-17 Magnesium Hydroxide 400 Mg/5 Ml Oral.susp, 30 ML PO Q12H PRN for CONSTIPATION- 7TH LINE, (Reported) Metoprolol Tartrate 50 Mg Tablet, 50 MG PO BID, (Reported) HOLD IF SBP UNDER 100 OR PULSE LESS THAN 60 Potassium Chloride 10 Meq Tab.er.prt, 10 MEQ PO DAILY, (Reported) Tramadol HCl 50 Mg Tablet, 50 MG PO TID, (Reported) Triamcinolone Acet 15 Gm Cr, TP Q12H PRN for IRRITATION, (Reported) Past [id number]-[id number] Hx Patient Social History Employed/Student: unemployed Alcohol Use: Denies Use Recreational Drug Use: No Smoking Status: Former Smoker Former Smoker, Quit: Feb 13, 1986 2nd Hand Smoke Exposure: No Physical Abuse Screen: No Sexual Abuse: No Recent Foreign Travel: No Contact w/other who traveled: No Recent Hopitalizations: No Recent Infectious Disease Expo: No Immunizations Up To Date Tetanus Booster (TDap): Less than 5yrs Pediatric: Yes Date of Pneumonia Vaccine: Dec 21, 2013 Date of Influenza Vaccine: Nov 28, 2016 Seasonal Allergies Seasonal Allergies: Yes Surgeries Yes Abdominal, Gallbladder, Pacemaker, Vascular Surgery, Vasectomy Respiratory No Cardiovascular Yes Aneurysm, Hypertension Neurological Yes Cerebral Palsy Reproductive System Hx Reproductive Disorders: No Sexually Transmitted Disease: Yes ("CLAP" AT AGE 15) Genitourinary Yes (SELF-CATH'S X 40 YEARS, PER PT ON 01/30/17) Benign Prostatic Hyperpl, Prostate Problems, Neurogenic Bladder, UTI-Chronic Gastrointestinal Yes Gastroesophageal Reflux, Chronic Constipation, Gall Bladder Disease Musculoskeletal Yes (GENERALIZED WEAKNESS, GAIT DISTURBANCE) Arthritis Endocrine History of Endocrine Disorders: No HEENT History of HEENT Disorders: Yes HEENT Disorders: Cataract, Glaucoma Cancer No Psychosocial History of Psychiatric Problem: No Integumentary History of Skin or Integumenta: Yes (CANDIDIASIS OF SKIN AND NAIL) Blood Transfusions History of Blood Disorders: No Family Medical History Family Hx: FH: throat cancer 19 MOTHER Constitutional: chills, fever, weakness EENTM: no symptoms reported Respiratory: cough, other (atient) Cardiovascular: no symptoms reported Gastrointestinal: no symptoms reported Genitourinary: no symptoms reported, other (atheter) Physical Exam Vital Signs Vital Sign - Last 12Hours 02/13/17 02/13/17 02/13/17 09:59 14:13 16:00 Temp 101.6 Pulse 106 Resp 18 B/P (MAP) 116/58 (77) Pulse Ox 94 O2 Delivery Room Air FiO2 21 Capillary Refill : Less Than 3 Seconds General Appearance: No Apparent Distress, WD/WN Eyes: Bilateral Eye Normal Inspection HEENT: Normal ENT Inspection Neck: Full Range of Motion, Normal Inspection Respiratory: Other (coarse) Cardiovascular: Regular Rate, Rhythm, No Murmur Gastrointestinal: Non Tender, Soft Assessment/Plan Assessment and Plan pneumonia. Sepsis. UTI. Problems: Clinical Quality Measures DVT/VTE Risk/Contraindication: Risk Factor Score Per Nursin RFS Level Per Nursing on Admit: 2=Moderate Contraindications-Pharm: Other *list below* BO DENNEY DO Feb 13, 2017 18:55
[2017-02-13] MEDS ORDERED: MILK OF MAGNESIA 400 MG/5 ML 30 ML UDC PO PRN (19:00)
[2017-02-13] MEDS: PIPERACILLIN/TAZOBACTAM 4.5 GM/NS 100 ML IVPB IV SCH ×2 (19:04)
[2017-02-13 20:00] VITALS: BP 112/59
[2017-02-13] MEDS: DOCUSATE SODIUM 100 MG (COLACE) CAP PO SCH (21:23)
[2017-02-13] MEDS: meTOprolol TARTRATE 50 MG (LOPRESSOR) TAB PO SCH (21:23)
[2017-02-13] MEDS: CYCLOBENZAPRINE 10 MG (FLEXERIL) TAB PO SCH (21:23)
[2017-02-13] MEDS: GABAPENTIN 300 MG (NEURONTIN) CAP PO SCH (21:23)
[2017-02-14] VITALS (8 sets, daily range): BP systolic 105–157; BP diastolic 63–83
[2017-02-14] MEDS: PIPERACILLIN/TAZOBACTAM 4.5 GM/NS 100 ML IVPB IV SCH ×6 (02:21→18:39)
[2017-02-14] MEDS: NS IV 1000 ML 1,000 ML IV SCH (05:32)
[2017-02-14 06:53] LABS: BASOPHILS % (AUTO) 0 % (0-10); EOSINOPHILS # (AUTO) 0.2 10^3/uL (0.0-0.3); EOSINOPHILS % (AUTO) 2 % (0-10); HEMATOCRIT 32 % (40-54); HEMOGLOBIN 11.7 G/DL (13.3-17.7); LYMPHOCYTES # (AUTO) 1.2 X 10^3 (1.0-4.0); LYMPHOCYTES % (AUTO) 11 % (12-44); MEAN CORPUSCULAR HEMOGLOBIN 28 PG (25-34); MEAN CORPUSCULAR HGB CONC 36 G/DL (32-36); MEAN CORPUSCULAR VOLUME 76 FL (80-99); MEAN PLATELET VOLUME 9.5 FL (7.4-10.4); MONOCYTES # (AUTO) 0.9 X 10^3 (0.0-1.0); MONOCYTES % (AUTO) 8 % (0-12); NEUTROPHILS # (AUTO) 8.5 X 10^3 (1.8-7.8); NEUTROPHILS % (AUTO) 79 % (42-75); PLATELET COUNT 182 10^3/uL (130-400); RED BLOOD COUNT 4.25 10^6/uL (4.35-5.85); RED CELL DISTRIBUTION WIDTH 14.3 % (10.0-14.5); WHITE BLOOD COUNT 10.9 10^3/uL (4.3-11.0)
[2017-02-14 07:20] LABS: ALANINE AMINOTRANSFERASE 16 U/L (0-55); ALBUMIN 3.1 GM/DL (3.2-4.5); ALKALINE PHOSPHATASE 64 U/L (40-136); BILIRUBIN,TOTAL 0.5 MG/DL (0.1-1.0); BUN/CREATININE RATIO 16; CALCIUM 7.7 MG/DL (8.5-10.1); CARBON DIOXIDE 22 MMOL/L (21-32); CHLORIDE 111 MMOL/L (98-107); GFR ESTIMATED > 60; GLUCOSE 98 MG/DL (70-105); SODIUM 141 MMOL/L (135-145)
--- NOTE | 2017-02-14 07:37 | Progress Note (SOAP) ---
Subjective Time Seen by Provider: 07:35 Subjective/Events-last exam patient feeling much better today. Patient states he feels normal. Coughing and congestion better. Lactic acid 1.75 from 4.86. White blood cell count 10,900 from 18,100. Urine culture gram-negative grant. Urine culture Enterobacter and group B strep area Patient in the right direction. Sepsis. Respiratory infection. UTI. Patient self caths Objective Exam Vital Signs Date Time Temp Pulse Resp B/P (MAP) Pulse Ox O2 Delivery O2 Flow Rate FiO2 02/14/17 07:11 96 Room Air 02/14/17 06:30 97.9 64 16 105/73 (84) 97 Room Air 02/14/17 04:30 97.6 62 12 119/79 (92) 94 Room Air 02/14/17 02:30 97.4 60 20 110/77 (88) 95 Room Air 02/14/17 00:30 98.0 65 16 107/63 (78) 94 Room Air 02/13/17 20:30 Nasal Cannula 02/13/17 20:00 98.6 76 18 112/59 (76) 96 Room Air 02/13/17 19:26 94 Room Air 02/13/17 18:00 98.4 80 18 115/69 (84) 94 Room Air 02/13/17 16:00 98.8 93 18 116/58 (77) 98 Room Air 02/13/17 14:13 94 21 02/13/17 12:33 103 18 95 Room Air 02/13/17 10:58 94 Room Air 02/13/17 09:59 101.6 106 18 94 Room Air I & O 02/14/17 06:59 Intake Total 2480 ml Output Total 2250 ml Balance 230 ml Capillary Refill : Less Than 3 Seconds General Appearance: No Apparent Distress, WD/WN HEENT: Normal ENT Inspection Neck: Full Range of Motion, Normal Inspection Respiratory: Other (congestion and chest improving and loose) Cardiovascular: Regular Rate, Rhythm, No Murmur Gastrointestinal: non tender, soft Results Lab Laboratory Tests 02/13/17 11:01 02/14/17 05:34 Laboratory Tests 02/13/17 11:01: White Blood Count 18.1H, Red Blood Count 5.21, Hemoglobin 14.4, Hematocrit 38L, Mean Corpuscular Volume 72L, Mean Corpuscular Hemoglobin 28, Mean Corpuscular Hemoglobin Concent 38H, Red Cell Distribution Width 14.1, Platelet Count 214, Mean Platelet Volume 8.8, Neutrophils (%) (Auto) 91H, Lymphocytes (%) (Auto) 4L , Monocytes (%) (Auto) 5, Eosinophils (%) (Auto) 0, Basophils (%) (Auto) 0, Neutrophils # (Auto) 16.5H, Lymphocytes # (Auto) 0.7L, Monocytes # (Auto) 0.9, Eosinophils # (Auto) 0.1, Basophils # (Auto) 0.0, Neutrophils % (Manual) 88, Lymphocytes % (Manual) 7, Monocytes % (Manual) 2, Eosinophils % (Manual) 0, Basophils % (Manual) 0, Band Neutrophils 3, Blood Morphology Comment NORMAL, Sodium Level 140, Potassium Level 4.4, Chloride Level 105, Carbon Dioxide Level 26, Anion Gap 9, Blood Urea Nitrogen 17, Creatinine 0.86, Estimat Glomerular Filtration Rate > 60, BUN/Creatinine Ratio 20, Glucose Level 111H, Lactic Acid Level 2.15*H, Calcium Level 8.6, Total Bilirubin 0.4, Aspartate Amino Transf ( AST/SGOT) 24, Alanine Aminotransferase (ALT/SGPT) 20, Alkaline Phosphatase 83, Total Protein 7.7, Albumin 3.7 02/13/17 11:21: Urine Color YELLOW, Urine Clarity VERY CLOUDYH, Urine pH 5, Urine Specific Vickery 1.020, Urine Protein NEGATIVE, Urine Glucose (UA) NEGATIVE, Urine Ketones NEGATIVE, Urine Nitrite POSITIVEH, Urine Bilirubin NEGATIVE, Urine Urobilinogen NORMAL, Urine Leukocyte Esterase 3+H, Urine RBC (Auto) 1+H, Urine RBC NONE, Urine WBC 25-50H, Urine Squamous Epithelial Cells RARE, Urine Crystals NONE, Urine Bacteria LARGEH, Urine Casts NONE, Urine Mucus NEGATIVE, Urine Culture Indicated YES 02/13/17 13:34: Lactic Acid Level 4.86*H 02/13/17 16:42: Lactic Acid Level 2.23*H 02/13/17 18:49: Lactic Acid Level 3.99*H 02/13/17 20:55: Lactic Acid Level 1.75 02/14/17 05:34: White Blood Count 10.9, Red Blood Count 4.25L, Hemoglobin 11.7L, Hematocrit 32L , Mean Corpuscular Volume 76L, Mean Corpuscular Hemoglobin 28, Mean Corpuscular Hemoglobin Concent 36, Red Cell Distribution Width 14.3, Platelet Count 182, Mean Platelet Volume 9.5, Neutrophils (%) (Auto) 79H, Lymphocytes (%) (Auto) 11L , Monocytes (%) (Auto) 8, Eosinophils (%) (Auto) 2, Basophils (%) (Auto) 0, Neutrophils # (Auto) 8.5H, Lymphocytes # (Auto) 1.2, Monocytes # (Auto) 0.9, Eosinophils # (Auto) 0.2, Basophils # (Auto) 0.0, Sodium Level 141, Potassium Level 4.0, Chloride Level 111H, Carbon Dioxide Level 22, Anion Gap 8, Blood Urea Nitrogen 13, Creatinine 0.80, Estimat Glomerular Filtration Rate > 60, BUN/ Creatinine Ratio 16, Glucose Level 98, Calcium Level 7.7L, Total Bilirubin 0.5, Aspartate Amino Transf (AST/SGOT) 19, Alanine Aminotransferase (ALT/SGPT) 16, Alkaline Phosphatase 64, Total Protein 6.0L, Albumin 3.1L Microbiology 02/13/17 Influenza Types A,B Antigen (SILVINA) - Final, Complete 02/13/17 Urine Culture - Preliminary, Resulted Gram Negative Grant Strep, Beta Hemolytic Group B See Comments Assessment/Plan Assessment/Plan Assess & Plan/Chief Complaint sepsis. UTI. Respiratory infection. Cerebral palsy Clinical Quality Measures DVT/VTE Risk/Contraindication: Risk Factor Score Per Nursin RFS Level Per Nursing on Admit: 2=Moderate Contraindications-Pharm: Other *list below* AMY DENNEY DO Feb 14, 2017 07:37
[2017-02-14] MEDS: ASPIRIN E.C. 81 MG (ECOTRIN) TAB PO SCH (08:27)
[2017-02-14] MEDS: DOCUSATE SODIUM 100 MG (COLACE) CAP PO SCH ×3 (08:34→21:14)
[2017-02-14] MEDS: CLOPIDOGREL 75 MG (PLAVIX) TABLET PO SCH (08:35)
[2017-02-14] MEDS: KCL 10 MEQ TAB (MICRO K) PO SCH (08:35)
[2017-02-14] MEDS: meTOprolol TARTRATE 50 MG (LOPRESSOR) TAB PO SCH ×2 (08:35→21:14)
[2017-02-14] MEDS: CYCLOBENZAPRINE 10 MG (FLEXERIL) TAB PO SCH ×2 (08:35→21:14)
[2017-02-14] MEDS: amLODIPine 2.5MG (NORVASC) TAB PO SCH (08:36)
--- NOTE | 2017-02-14 08:54 | Diagnostic Imaging Report ---
INDICATION: Pneumonia. COMPARISON: 02/13/2017. FINDINGS: Air trapping and COPD are chronic. The pacemaker device is stable. No focal infiltrate, effusion, or pneumothorax. IMPRESSION: No focal infiltrate. Dictated by: Dictated on workstation # [id number]
[2017-02-14] MEDS: GABAPENTIN 300 MG (NEURONTIN) CAP PO SCH (21:14)
--- OUTSIDE RECORDS SUMMARY | 2017-02-14 22:14 | XMS REPORT | Continuity of Care Document ---
Author Author [facility] Organization [facility] Address Unknown Phone Unavailable Allergies Active Description Code Type Severity Reaction Onset Reported/Identified Relationship to Patient Clinical Status Yes No Known Drug Allergies [id number] Drug Allergy Unknown N/A 12/20/2013 Medications There is no data. Problems Date Dx Coded Attending Type Code Diagnosis Diagnosed By 12/23/2013 RAMANA MAE MD, FACC FACP CCDS Ot 338.29 12/23/2013 CARMELITA BEAN FACC, ALI FACP CCDS Ot 343.9 12/23/2013 CARMELITA BEAN FACC, ALI FACP CCDS Ot 355.9 12/23/2013 CARMELITA BEAN FACC ALI FACP CCDS Ot 426.0 12/23/2013 CARMELITA BEAN FACC, ALI FACP CCDS Ot 426.13 12/23/2013 CARMELITA BEAN FACC, ALI FACP CCDS Ot 426.52 12/23/2013 CARMELITA BEAN FACC, ALI FACP CCDS Ot 427.89 12/23/2013 CARMELITA BEAN FACC, ALI FACP CCDS Ot 564.00 12/23/2013 CARMELITA BEAN FACC, ALI FACP CCDS Ot 724.5 12/23/2013 CARMELITA BEAN FACC, ALI FACP CCDS Ot 729.89 12/23/2013 CARMELITA BEAN FACC ALI FACP CCDS Ot 781.2 12/23/2013 CARMELITA BEAN FACC, ALI FACP CCDS Ot 788.20 12/23/2013 CARMELITA BEAN FACC ALI FACP CCDS Ot V15.82 12/23/2013 CARMELITA BEAN FACC ALI FACP CCDS Ot 338.29 OTHER CHRONIC PAIN 12/23/2013 CARMELITA BEAN FACC ALI FACP CCDS Ot 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 12/23/2013 CARMELITA BEAN FACC ALI FACP CCDS Ot 355.9 12/23/2013 CARMELITA BEAN FACC, ALI FACP CCDS Ot 401.9 HYPERTENSION NOS 12/23/2013 CARMELITA MCCALLUMC, ALI FACP CCDS Ot 426.0 ATRIOVENT BLOCK COMPLETE 12/23/2013 CARMELITA BEAN FACC, ALI FACP CCDS Ot 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 12/23/2013 CARMELITA BEAN FACC, ALI FACP CCDS Ot 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 12/23/2013 CARMELITA BEAN FACC, ALI FACP CCDS Ot 427.89 CARDIAC DYSRHYTHMIAS NEC 12/23/2013 CARMELITA MCCALLUMC, ALI FACP CCDS Ot 564.00 UNSPEC CONSTIPATION 12/23/2013 CARMELITA BEAN FACC, ALI FACP CCDS Ot 724.5 BACKACHE NOS 12/23/2013 CARMELITA BEAN FACC, ALI FACP CCDS Ot 729.89 MUSCSKEL SYMPT LIMB NEC 12/23/2013 CARMELITA BEAN FACC, ALI FACP CCDS Ot 781.2 ABNORMALITY OF GAIT 12/23/2013 CARMELITA BEAN FACC, RAMANA FACP CCDS Ot 788.20 RETENTION OF URINE NOS 12/23/2013 CARMELITA BEAN FACC, ALI FACP CCDS Ot V03.82 PROPHYLACTIC VACC AGAINST STREPTOCOCCUS 12/23/2013 CARMELITA BEAN FACC, ALI FACP CCDS Ot V04.81 ND FOR PROPHYLACTIC VACCIN AND INOCULATI 12/23/2013 CARMELITA BEAN FACC, ALI FACP CCDS Ot V15.82 HISTORY OF TOBACCO USE 12/23/2013 Ot 550.90 12/23/2013 Ot V72.83 12/23/2013 Ot V74.8 12/24/2013 DAYSI HERNADEZ MD E Ot 305.1 12/24/2013 SATYA BEAN, DAYSI E Ot 343.9 12/24/2013 DAYSI HERNADEZ MD E Ot 401.9 12/24/2013 YENNY HERNADEZ MDIC E Ot 724.5 12/24/2013 DAYSI HERNADEZ MD E Ot 729.89 12/24/2013 DAYSI HERNADEZ MD E Ot 781.2 12/24/2013 DAYSI HERNADEZ MD E Ot V45.01 12/24/2013 SATYA BEAN DAYSI E Ot V57.89 12/24/2013 SATYA BEAN DAYSI E Ot 305.1 12/24/2013 YENNY HERNADEZ MDIC E Ot 343.9 12/24/2013 SATYA BEAN, DAYSI E Ot 401.9 12/24/2013 SATYA BEAN, DAYSI E Ot 724.5 12/24/2013 SATYA BEAN, DAYSI E Ot 729.89 12/24/2013 SATYA BEAN, DAYSI E Ot 781.2 12/24/2013 SATYA BEAN, DAYSI E Ot V45.01 12/24/2013 SATYA BEAN, DAYSI E Ot V57.89 12/31/2013 SATYA BEAN, DAYSI E Ot 305.1 12/31/2013 SATYA BEAN, DAYSI [...] AFTERCARE POST SURGERY CIRULATORY SYSTEM 06/27/2014 JUMANA DOAMY A Ot 440.20 06/28/2014 MARILIA MCNAIR MD Ot 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 06/28/2014 MARILIA MCNAIR MD Ot 401.9 HYPERTENSION NOS 06/28/2014 MARILIA MCNAIR MD Ot 440.21 ATHEROSCL TUNTUTULIAK ARTER EXTREM W INTERMIT 06/28/2014 MARILIA MCNAIR [...] SITU 06/28/2014 MARILIA MCNAIR MD Ot V58.69 OT MED,LT,CURRENT USE 06/30/2014 MARILIA MCNAIR MD Ot 343.9 06/30/2014 MARILIA MCNAIR MD Ot 401.9 06/30/2014 MARILIA MCNAIR MD Ot 440.21 06/30/2014 MARILIA MCNAIR MD Ot 440.4 06/30/2014 MARILIA MCNAIR MD Ot 440.8 06/30/2014 MARILIA MCNAIR MD Ot 441.4 06/30/2014 MARILIA MCNAIR MD Ot 530.81 06/30/2014 MARILIA MCANIR MD Ot V15.82 06/30/2014 MARILIA MCNAIR MD, Ot V45.01 07/01/2014 MARILIA MCNAIR MD Ot 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 07/01/2014 MARILIA MCNAIR MD Ot 401.9 HYPERTENSION NOS 07/01/2014 MARILIA MCNAIR MD Ot 440.21 ATHEROSCL [place] ARTER EXTREM W INTERMIT 07/01/2014 MARILIA MCNAIR MD Ot 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 07/01/2014 MARILIA MCNAIR MD Ot 441.4 ABDOM AORTIC ANEURYSM 07/01/2014 MARILIA MCNAIR MD Ot 444.21 07/01/2014 MARILIA MCNAIR MD Ot V15.82 HISTORY OF TOBACCO USE 07/01/2014 MARILIA MCNAIR MD Ot V45.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 07/01/2014 MARILIA MCNAIR MD Ot V58.69 OT MED,LT,CURRENT USE 07/05/2014 MARILIA MCNAIR MD Ot [...] ALI FACP CCDS Ot 443.9 11/22/2014 CARMELITA BEAN FACC, ALI FACP CCDS Ot V45.01 03/04/2016 AMY DENNEY DO Ot 440.20 ATHEROSCLEROSIS TUNTUTULIAK ARTERIES EXTREMIT 03/04/2016 CARMELITA MCCALLUMC, ALI FACP CCDS Ot 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 03/04/2016 CARMELITA MCCALLUMC, ALI FACP CCDS Ot 401.9 HYPERTENSION NOS 03/04/2016 CARMELITA BEAN FACC, ALI FACP [...] CARMELITA BEAN FACC, RAMANA FACP CCDS Ot I10 ESSENTIAL (PRIMARY) HYPERTENSION 06/18/2016 CARMELITA BEAN FACC, RAMANA FACP CCDS Ot I44.2 ATRIOVENTRICULAR BLOCK, COMPLETE [...] OF CARDIAC PACEMAKER 06/18/2016 CARMELITA BEAN FACC, RAMANA FACP CCDS Ot I10 ESSENTIAL (PRIMARY) HYPERTENSION [...] Z95.0 PRESENCE OF CARDIAC PACEMAKER 07/11/2016 CARMELITA BEAN FACC, ALI FACP CCDS Ot I10 ESSENTIAL (PRIMARY) HYPERTENSION 07/11/2016 CARMELITA BEAN FACC, ALI FACP CCDS Ot I44.2 ATRIOVENTRICULAR BLOCK, COMPLETE 07/11/2016 CARMELITA BEAN FACC, ALI FACP CCDS Ot I71.4 ABDOMINAL AORTIC ANEURYSM, WITHOUT RUPTU 07/11/2016 CARMELITA BEAN FACC, ALI FACP CCDS Ot I73.89 OTHER SPECIFIED PERIPHERAL VASCULAR DISE 07/11/2016 CARMELITA BEAN FACC, ALI FACP CCDS Ot R06.02 SHORTNESS OF BREATH 07/11/2016 CARMELITA BEAN FACC, ALI FACP CCDS Ot R26.89 OTHER ABNORMALITIES OF GAIT AND MOBILITY 07/11/2016 CARMELITA BEAN FACC, ALI FACP CCDS [...] ABDOMINAL AORTIC ANEURYSM, WITHOUT RUPTU 07/15/2016 CARMELITA MD FACC, ALI FACP CCDS Ot I73.89 OTHER SPECIFIED PERIPHERAL VASCULAR DISE 07/15/2016 CARMELITA BEAN FACC, ALI FACP CCDS Ot R06.02 SHORTNESS OF BREATH 07/15/2016 CARMELITA BEAN FACC, ALI FACP CCDS Ot R26.89 OTHER ABNORMALITIES OF GAIT AND MOBILITY 07/15/2016 CARMELITA BEAN FACC, ALI FACP CCDS Ot Z95.0 PRESENCE OF CARDIAC PACEMAKER 07/15/2016 CARMELITA MCCALLUMC, ALI FACP CCDS Ot I10 ESSENTIAL (PRIMARY) HYPERTENSION 07/15/2016 CARMELITA BEAN FACC, ALI FACP CCDS Ot I44.2 ATRIOVENTRICULAR BLOCK, COMPLETE 07/15/2016 CARMELITA BEAN FACC, ALI FACP CCDS Ot I71.4 ABDOMINAL AORTIC ANEURYSM, WITHOUT RUPTU 07/15/2016 CARMELITA BEAN FACC, ALI FACP CCDS Ot I73.89 OTHER SPECIFIED PERIPHERAL VASCULAR DISE 07/15/2016 CARMELITA MCCALLUMC, ALI FACP CCDS Ot R06.02 SHORTNESS OF BREATH 07/15/2016 CARMELITA MCCALLUMC, ALI FACP CCDS Ot R26.89 OTHER ABNORMALITIES [...] ABDOMINAL AORTIC ANEURYSM, WITHOUT RUPTU 07/17/2016 CARMELITA MCCALLUM, ALI FACP CCDS Ot I73.89 OTHER SPECIFIED PERIPHERAL VASCULAR DISE 07/17/2016 CARMELITA BEAN FACC, ALI FACP CCDS Ot R06.02 SHORTNESS OF BREATH 07/17/2016 CARMELITA MCCALLUM, ALI FACP CCDS Ot R26.89 OTHER ABNORMALITIES OF GAIT AND MOBILITY 07/17/2016 CARMELITA BEAN FACC, ALI FACP CCDS Ot Z95.0 PRESENCE OF CARDIAC PACEMAKER 07/17/2016 AMY DENNEY DO Ot N39.0 URINARY TRACT INFECTION, SITE NOT SPECIF 07/22/2016 CARMELITA MCCALLUMC, ALI FACP CCDS Ot I10 ESSENTIAL (PRIMARY) HYPERTENSION 07/22/2016 CARMELITA BEAN FACC, ALI FACP CCDS Ot I44.2 ATRIOVENTRICULAR BLOCK, COMPLETE 07/22/2016 CARMELITA MD FACC, ALI FACP CCDS Ot I71.4 ABDOMINAL AORTIC ANEURYSM, WITHOUT RUPTU 07/22/2016 CARMELITA MD FACC, ALI FACP CCDS Ot I73.89 OTHER SPECIFIED PERIPHERAL VASCULAR DISE 07/22/2016 CARMELITA MD FACC, ALI FACP CCDS Ot R06.02 SHORTNESS OF BREATH 07/22/2016 CARMELITA MD FACC, ALI FACP CCDS Ot R26.89 OTHER ABNORMALITIES OF GAIT AND MOBILITY 07/22/2016 CARMELITA MD FACC, ALI FACP CCDS Ot Z95.0 PRESENCE OF CARDIAC PACEMAKER 07/22/2016 CARMELITA BEAN FACC, ALI FACP CCDS Ot I10 ESSENTIAL (PRIMARY) HYPERTENSION 07/22/2016 CARMELITA BEAN FACC, ALI FACP CCDS Ot I44.2 ATRIOVENTRICULAR BLOCK, COMPLETE 07/22/2016 CARMELITA MD FACC, ALI FACP CCDS Ot I71.4 ABDOMINAL AORTIC ANEURYSM, WITHOUT RUPTU 07/22/2016 CARMELITA BEAN [facility], ALI FACP CCDS Ot I73.89 OTHER SPECIFIED PERIPHERAL VASCULAR DISE 07/22/2016 CARMELITA BEAN [facility], ALI FACP CCDS Ot R06.02 SHORTNESS OF BREATH 07/22/2016 CARMELITA [facility], ALI FACP CCDS Ot R26.89 OTHER ABNORMALITIES OF GAIT AND MOBILITY 07/22/2016 CARMELITA BEAN [facility], ALI FACP CCDS Ot Z95.0 PRESENCE OF CARDIAC PACEMAKER 08/08/2016 COOPER DO, MILO K Ot A41.9 SEPSIS, UNSPECIFIED ORGANISM 08/08/2016 COOPER DO, MILO K Ot G80.9 CEREBRAL PALSY, UNSPECIFIED 08/08/2016 COOPER DO, MILO K Ot I10 ESSENTIAL (PRIMARY) HYPERTENSION 08/08/2016 COOPER DO, MILO K Ot I71.4 ABDOMINAL AORTIC ANEURYSM, WITHOUT RUPTU 08/08/2016 COOPER DO, MILO K Ot K21.9 GASTRO-ESOPHAGEAL REFLUX DISEASE WITHOUT 08/08/2016 COOPER DO, MILO K Ot K59.00 CONSTIPATION, UNSPECIFIED 08/08/2016 COOPER DO, MILO K Ot K85.10 BILIARY ACUTE PANCREATITIS WITHOUT NECRO 08/08/2016 COOPER DO, MILO K Ot N39.0 URINARY TRACT INFECTION, SITE NOT SPECIF 08/08/2016 MILO GAMBOA DO Ot N40.0 BENIGN PROSTATIC HYPERPLASIA WITHOUT LOW 08/08/2016 MILO GAMBOA DO Ot R33.8 OTHER RETENTION OF URINE 08/08/2016 MILO GAMBOA DO K Ot R50.9 FEVER, UNSPECIFIED 08/08/2016 MILO GAMBOA DO Ot Z79.899 OTHER SNF (CURRENT) DRUG THERAPY 08/08/2016 MILO GAMBOA DO K Ot Z95.0 PRESENCE OF CARDIAC PACEMAKER 08/12/2016 AMY DENNEY DO Ot 440.20 ATHEROSCLEROSIS [place] ARTERIES EXTREMIT 08/12/2016 CARMELITA BEAN FACC, RAMANA FACP CCDS Ot 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 08/12/2016 CARMELITA BEAN FACC, ALI FACP CCDS Ot 401.9 HYPERTENSION NOS 08/12/2016 CARMELITA BEAN FACC, ALI FACP CCDS Ot 426.0 ATRIOVENT BLOCK COMPLETE 08/12/2016 CARMELITA BEAN FACC, ALI FACP CCDS Ot 441.4 ABDOM AORTIC ANEURYSM 08/12/2016 CARMELITA BEAN FACC, ALI FACP CCDS Ot 443.9 PERIPH VASCULAR DIS NOS 08/12/2016 CARMELITA BEAN FACC, ALI FACP CCDS Ot V45.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 08/12/2016 CARMELITA BEAN FACC, RAMANA FACP CCDS Ot I10 ESSENTIAL (PRIMARY) HYPERTENSION 08/12/2016 CARMELITA BEAN FACC, ALI FACP CCDS Ot I44.2 ATRIOVENTRICULAR BLOCK, COMPLETE 08/12/2016 CARMELITA BEAN FACC, ALI FACP CCDS Ot I71.4 ABDOMINAL AORTIC ANEURYSM, WITHOUT RUPTU 08/12/2016 CARMELITA BEAN FACC, ALI FACP CCDS Ot I73.89 OTHER SPECIFIED PERIPHERAL VASCULAR DISE 08/12/2016 CARMELITA BEAN FACC, ALI FACP CCDS Ot R06.02 SHORTNESS OF BREATH 08/12/2016 CARMELITA BEAN FACC, ALI FACP CCDS Ot R26.89 OTHER ABNORMALITIES OF GAIT AND MOBILITY 08/12/2016 CARMELITA BEAN FACC, ALI FACP CCDS Ot Z95.0 PRESENCE OF CARDIAC PACEMAKER 08/12/2016 CARMELITA BEAN FACC, ALI FACP CCDS Ot I10 ESSENTIAL (PRIMARY) HYPERTENSION 08/12/2016 CARMELITA BEAN FACC, ALI FACP CCDS Ot I44.2 ATRIOVENTRICULAR BLOCK, COMPLETE 08/12/2016 CARMELITA BEAN FACC, ALI FACP CCDS Ot I71.4 ABDOMINAL AORTIC ANEURYSM, WITHOUT RUPTU 08/12/2016 CARMELITA BEAN FACC, ALI FACP CCDS Ot I73.89 OTHER SPECIFIED PERIPHERAL VASCULAR DISE 08/12/2016 CARMELITA BEAN FACC, ALI FACP CCDS Ot R06.02 SHORTNESS OF BREATH 08/12/2016 CARMELITA BEAN FACC, ALI FACP CCDS Ot R26.89 OTHER ABNORMALITIES OF GAIT AND MOBILITY 08/12/2016 CARMELITA BEAN FACC, ALI FACP CCDS Ot Z95.0 PRESENCE OF CARDIAC PACEMAKER 08/12/2016 CARMELITA BEAN FACC, ALI FACP CCDS Ot I10 ESSENTIAL (PRIMARY) HYPERTENSION 08/12/2016 CARMELITA BEAN FACC, ALI FACP CCDS Ot I44.2 ATRIOVENTRICULAR BLOCK, COMPLETE 08/12/2016 CARMELITA BEAN FACC, ALI FACP CCDS Ot I71.4 ABDOMINAL AORTIC ANEURYSM, WITHOUT RUPTU 08/12/2016 CARMELITA BEAN FACC, ALI FACP CCDS Ot I73.89 OTHER SPECIFIED PERIPHERAL VASCULAR DISE 08/12/2016 CARMELITA BEAN FACC, ALI FACP CCDS Ot R06.02 SHORTNESS OF BREATH 08/12/2016 CARMELITA BEAN FACC, ALI FACP CCDS Ot R26.89 OTHER ABNORMALITIES OF GAIT AND MOBILITY 08/12/2016 CARMELITA BEAN FACC, ALI FACP CCDS Ot Z95.0 PRESENCE OF CARDIAC PACEMAKER 08/12/2016 AMY DENNEY DO Ot N39.0 URINARY TRACT INFECTION, SITE NOT SPECIF 09/24/2016 AMY DENNEY DO Ot 440.20 ATHEROSCLEROSIS [place] ARTERIES EXTREMIT 09/24/2016 RAMANA MAE MD, FACC FACP CCDS Ot 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 09/24/2016 RAMANA MAE MD, FACC FACP CCDS Ot 401.9 HYPERTENSION NOS 09/24/2016 CARMELITA BEAN FACC ALI FACP CCDS Ot 426.0 ATRIOVENT BLOCK COMPLETE 09/24/2016 CARMELITA BEAN FACC ALI FACP CCDS Ot 441.4 ABDOM AORTIC ANEURYSM 09/24/2016 CARMELITA BEAN FACC ALI FACP CCDS Ot 443.9 PERIPH VASCULAR DIS NOS 09/24/2016 CARMELITA MD FACC, ALI FACP CCDS Ot V45.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 09/24/2016 CARMELITA BEAN FACC, ALI FACP CCDS Ot I10 ESSENTIAL (PRIMARY) HYPERTENSION 09/24/2016 CARMELITA BEAN FACC, ALI FACP CCDS Ot I44.2 ATRIOVENTRICULAR BLOCK, COMPLETE 09/24/2016 CARMELITA BEAN FACC, ALI FACP CCDS Ot I71.4 ABDOMINAL AORTIC ANEURYSM, WITHOUT RUPTU 09/24/2016 CARMELITA BEAN FACC, ALI FACP CCDS Ot I73.89 OTHER SPECIFIED PERIPHERAL VASCULAR DISE 09/24/2016 CARMELITA BEAN FACC, ALI FACP CCDS Ot R06.02 SHORTNESS OF BREATH 09/24/2016 CARMELITA BEAN FACC, ALI FACP CCDS Ot R26.89 OTHER ABNORMALITIES OF GAIT AND MOBILITY 09/24/2016 CARMELITA BEAN FACC, ALI FACP CCDS Ot Z95.0 PRESENCE OF CARDIAC PACEMAKER 09/24/2016 CARMELITA MCCALLUMC, ALI FACP CCDS Ot I10 ESSENTIAL (PRIMARY) HYPERTENSION 09/24/2016 CARMELITA MCCALLUMC, ALI FACP CCDS Ot I44.2 ATRIOVENTRICULAR BLOCK, COMPLETE 09/24/2016 CARMELITA MCCALLUMC, ALI FACP CCDS Ot I71.4 ABDOMINAL AORTIC ANEURYSM, WITHOUT RUPTU 09/24/2016 CARMELITA MCCALLUMC, ALI FACP CCDS Ot I73.89 OTHER SPECIFIED PERIPHERAL VASCULAR DISE 09/24/2016 CARMELITA MCCALLUMC, ALI FACP CCDS Ot R06.02 SHORTNESS OF BREATH 09/24/2016 CARMELITA MCCALLUMC, ALI FACP CCDS Ot R26.89 OTHER ABNORMALITIES OF GAIT AND MOBILITY 09/24/2016 CARMELITA MCCALLUMC, ALI FACP CCDS Ot Z95.0 PRESENCE OF CARDIAC PACEMAKER 09/24/2016 CARMELITA BEAN FACC, ALI FACP CCDS Ot I10 ESSENTIAL (PRIMARY) HYPERTENSION 09/24/2016 CARMELITA BEAN FACC, ALI FACP CCDS Ot I44.2 ATRIOVENTRICULAR BLOCK, COMPLETE 09/24/2016 CARMELITA BEAN FACC, ALI FACP CCDS Ot I71.4 ABDOMINAL AORTIC ANEURYSM, WITHOUT RUPTU 09/24/2016 CARMELITA BEAN FACC, ALI FACP CCDS Ot I73.89 OTHER SPECIFIED PERIPHERAL VASCULAR DISE 09/24/2016 CARMELITA BEAN FACC, ALI FACP CCDS Ot R06.02 SHORTNESS OF BREATH 09/24/2016 CARMELITA BEAN [facility], RAMANA MCCALLUMP CCDS Ot R26.89 OTHER ABNORMALITIES OF GAIT AND MOBILITY 09/24/2016 CARMELITA BEAN FAC, RAMANA [facility] CCDS Ot Z95.0 PRESENCE OF CARDIAC PACEMAKER 09/24/2016 AMY DENNEY DO Ot N39.0 URINARY TRACT INFECTION, SITE NOT SPECIF 10/03/2016 LIOR COOK APRN Ot G80.9 CEREBRAL PALSY, UNSPECIFIED 10/03/2016 LIOR COOK APRN Ot I10 ESSENTIAL (PRIMARY) HYPERTENSION 10/03/2016 LIOR COOK APRN Ot N45.3 EPIDIDYMO-ORCHITIS 10/03/2016 LIOR COOK APRN Ot N50.89 OTHER SPECIFIED DISORDERS OF THE MALE GE 10/03/2016 LIOR COOK APRN Ot Z79.02 SNF (CURRENT) USE OF ANTITHROMBOTI 10/03/2016 LIOR COOK APRN Ot Z79.899 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 CANV[employer] PRODUCTS (CURRENT) DRUG THERAPY 10/03/2016 LIOR COOK APRN Ot Z95.0 PRESENCE OF CARDIAC PACEMAKER 10/03/2016 LIOR COOK APRN Ot Z96.89 PRESENCE OF OTHER SPECIFIED FUNCTIONAL I 10/04/2016 LIOR COOK APRN Ot G80.9 CEREBRAL PALSY, UNSPECIFIED 10/04/2016 LIOR COOK APRN Ot I10 ESSENTIAL (PRIMARY) HYPERTENSION 10/04/2016 LIOR COOK APRN Ot N45.3 EPIDIDYMO-ORCHITIS 10/04/2016 LIOR COOK APRN Ot N50.89 OTHER SPECIFIED DISORDERS OF THE MALE GE 10/04/2016 LIOR COOK APRN Ot Z79.02 SNF (CURRENT) USE OF ANTITHROMBOTI 10/04/2016 LIOR COOK APRN Ot Z79.899 OTHER INSPECTOR [employer] PRODUCTS (CURRENT) DRUG THERAPY 10/04/2016 LIOR COOK APRN Ot Z95.0 PRESENCE OF CARDIAC PACEMAKER 10/04/2016 LIOR COOK EXTRACT MIXER Ot Z96.89 PRESENCE OF OTHER SPECIFIED FUNCTIONAL I 10/09/2016 LIOR COOK APRN Ot G80.9 CEREBRAL PALSY, UNSPECIFIED 10/09/2016 LIOR COOK APRN Ot I10 ESSENTIAL (PRIMARY) HYPERTENSION 10/09/2016 LIOR COOK APRN Ot N45.3 EPIDIDYMO-ORCHITIS 10/09/2016 LIOR COOK APRN Ot N50.89 OTHER SPECIFIED DISORDERS OF THE MALE GE 10/09/2016 LIOR COOK APRN Ot Z79.02 SNF (CURRENT) USE OF ANTITHROMBOTI 10/09/2016 LIOR COOK APRN Ot Z79.899 OTHER SNF (CURRENT) DRUG THERAPY 10/09/2016 LIOR COOK APRN Ot Z95.0 PRESENCE OF CARDIAC PACEMAKER 10/09/2016 LIOR COOK APRN Ot Z96.89 PRESENCE OF OTHER SPECIFIED FUNCTIONAL I 10/16/2016 GELLENDER DO, AMY Stovall Ot N50.89 OTHER SPECIFIED DISORDERS OF THE MALE GE 10/22/2016 [facility] AMY Stovall Ot N50.89 OTHER SPECIFIED DISORDERS OF THE MALE GE 01/21/2017 GELLENDER DO, AMY Stovall Ot 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0 FAMILY HISTORY OF MALIGNANT NEOPLASM OF 02/04/2017 COOPER GUTIERREZ MILO K Ot Z87.19 PERSONAL HISTORY OF OTHER DISEASES OF TH 02/04/2017 COOPER GUTIERREZ MILO K Ot Z90.49 ACQUIRED ABSENCE OF OTHER SPECIFIED PART 02/04/2017 COOPER DO MILO K Ot Z95.0 PRESENCE OF CARDIAC PACEMAKER 02/04/2017 DANNA GAMBOA DOA K Ot Z95.820 PERIPHERAL VASCULAR ANGIOPLASTY STATUS W 02/04/2017 COOPER GUTIERREZ MILO Almaguer Ot Z98.52 VASECTOMY STATUS Procedures Code Description Performed By Performed On 37.72 INITIAL INSERT TRANS LEADS INTO [facility] 12/21/2013 37.83 INITIAL INSERTION OF DUAL- CHAMBER DEVICE 12/21/2013 86.27 DEBRIDEMENT OF NAIL, NAIL BED OR NAIL FO 01/10/2014 Results Test Result Range Complete blood count (CBC) with automated white blood cell (WBC) differential - 02/29/16 11:01 Blood leukocytes automated count (number/volume) 8.5 10*3/uL 4.3-11.0 Blood erythrocytes automated count (number/volume) 4.85 10*6/uL 4.35-5.85 Venous blood hemoglobin measurement (mass/volume) 13.8 [...] Automated blood platelet mean volume measurement 9.9 [foz_us] 7.4-10.4 Automated blood neutrophils/100 leukocytes 62 % [...] Urine pH measurement by test strip 6 5-9 Specific gravity of urine by test strip 1.015 1.016- 1.022 Urine protein assay by test strip, semi-quantitative [...] culture - 06/21/16 19:15 Bacterial urine culture [id number] NRG COLONY COUNT 10,000/ML - 100,000/ML NRG FTX;REPORTABLE STUDIES TO FOLLOW NRG URINE CULTURE RESULTS PLUS NRG Bacterial susceptibility panel - 06/21/16 19:15 Gentamicin susceptibility test by minimum inhibitory concentration < = NRG Trimethoprim/sulfamethoxazole susceptibility test by minimum inhibitoryconcentration <= NRG Tobramycin susceptibility test by minimum inhibitory concentration < = NRG Cefazolin susceptibility test by minimum inhibitory concentration > = NRG Piperacillin/tazobactam susceptibility test by minimum inhibitory concentration 8 NRG Ciprofloxacin susceptibility test by minimum inhibitory concentration <= NRG Meropenem susceptibility test by minimum inhibitory concentration < = NRG Nitrofurantoin susceptibility test by minimum inhibitory concentration 128 NRG Aztreonam susceptibility test by minimum inhibitory concentration < = NRG Cefepime susceptibility test by minimum inhibitory concentration <= NRG Complete blood count (CBC) with automated white blood cell (WBC) differential - 08/08/16 07:45 Blood leukocytes automated count (number/volume) 15.3 10*3/uL 4.3-11.0 Blood erythrocytes automated count (number/volume) 5.16 10*6/uL 4.35-5.85 Venous blood hemoglobin measurement (mass/volume) 14.7 g/dL 13.3-17.7 Blood hematocrit (volume fraction) 45 % 40-54 Automated erythrocyte mean corpuscular volume 87 [foz_us] 80-99 Automated erythrocyte mean corpuscular hemoglobin (mass per erythrocyte) 29 pg 25-34 Automated erythrocyte mean corpuscular hemoglobin concentration measurement ( mass/volume) 33 g/dL 32-36 Automated erythrocyte distribution width ratio 14.7 % 10.0-14.5 Automated blood platelet count (count/volume) 223 10*3/uL 130-400 Automated blood platelet mean volume measurement 10.1 [foz_us] 7.4-10.4 Automated blood neutrophils/100 leukocytes 90 % 42-75 Automated blood lymphocytes/100 leukocytes 2 % 12-44 Blood monocytes/100 leukocytes 8 % 0-12 Automated blood eosinophils/100 leukocytes 0 % 0-10 Automated blood basophils/100 leukocytes 0 % 0-10 Blood neutrophils automated count (number/volume) 13.7 10*3 1.8-7.8 Blood lymphocytes automated count (number/volume) 0.3 10*3 1.0-4.0 Blood monocytes automated count (number/volume) 1.2 10*3 0.0-1.0 Automated eosinophil count 0.0 10*3/uL 0.0-0.3 Automated blood basophil count (count/volume) 0.0 10*3/uL 0.0-0.1 Blood lactic acid measurement (moles/volume) - 08/08/16 07:45 Blood lactic acid measurement (moles/volume) 2.26 mmol/L 0.50-2.00 Comprehensive metabolic panel - 08/08/16 07:45 Serum or plasma sodium measurement (moles/volume) 139 mmol/L 135-145 Serum or plasma potassium measurement (moles/volume) 4.6 mmol/L 3.6-5.0 Serum or plasma chloride measurement (moles/volume) 103 mmol/L 98-107 Carbon dioxide 22 mmol/L 21-32 Serum or plasma anion gap determination (moles/volume) 14 mmol/L 5-14 Serum or plasma urea nitrogen measurement (mass/volume) 13 mg/dL 7-18 Serum or plasma creatinine measurement (mass/volume) 0.84 mg/dL 0.60-1.30 Serum or plasma urea nitrogen/creatinine mass ratio 15 NRG Serum or plasma creatinine measurement with calculation of estimated glomerular filtration rate > NRG Serum or plasma glucose measurement (mass/volume) 121 mg/dL 70-105 Serum or plasma calcium measurement (mass/volume) 8.8 mg/dL 8.5-10.1 Serum or plasma total bilirubin measurement (mass/volume) 2.9 mg/dL 0.1-1.0 Serum or plasma alkaline phosphatase measurement (enzymatic activity/volume) 369 U/L 40-136 Serum or plasma aspartate aminotransferase measurement (enzymatic activity/ volume) 100 U/L 5-34 Serum or plasma alanine aminotransferase measurement (enzymatic activity/volume ) 95 U/L 0-55 Serum or plasma protein measurement (mass/volume) 7.5 g/dL 6.4-8.2 Serum or plasma albumin measurement (mass/volume) 3.5 g/dL 3.2-4.5 Magnesium - 08/08/16 07:45 Magnesium 1.9 mg/dL 1.8-2.4 Serum or plasma amylase measurement (enzymatic activity/volume) - 08/08/16 07: 45 Serum or plasma amylase measurement (enzymatic activity/volume) 1610 U/L 25-125 Blood manual differential performed detection - 08/08/16 07:45 Blood monocytes/100 leukocytes 6 % NRG Manual blood segmented neutrophils/100 leukocytes 88 % NRG Blood band neutrophils/100 leukocytes 4 % NRG Manual blood lymphocytes/100 leukocytes 2 % NRG Blood erythrocyte morphology finding identification NORMAL NRG Lipase - 08/08/16 07:45 Lipase 4554 U/L 8-78 Bacterial blood culture - 08/08/16 07:45 Bacterial blood culture NG NRG Bacterial blood culture - 08/08/16 07:58 Bacterial blood culture NG NRG Complete urinalysis with reflex to culture - 08/08/16 08:00 Urine color determination YELLOW NRG Urine clarity determination CLEAR NRG Urine pH measurement by test strip 6 5-9 Specific gravity of urine by test strip 1.010 1.016- 1.022 Urine protein assay by test strip, semi-quantitative 1+ NEGATIVE Urine glucose detection by automated test strip NEGATIVE NEGATIVE Erythrocytes detection in urine sediment by light microscopy 2+ NEGATIVE Urine ketones detection by automated test strip NEGATIVE NEGATIVE Urine nitrite detection by test strip NEGATIVE NEGATIVE Urine total bilirubin detection by test strip NEGATIVE NEGATIVE Urine urobilinogen measurement by automated test strip (mass/volume) NORMAL NORMAL Urine leukocyte esterase detection by dipstick 1+ NEGATIVE Automated urine sediment erythrocyte count by microscopy (number/high power field) [HPF] NRG Automated urine sediment leukocyte count by microscopy (number/high power field ) [HPF] NRG Bacteria detection in urine sediment by light microscopy LARGE NRG Crystals detection in urine sediment by light microscopy NONE NRG Casts detection in urine sediment by light microscopy NONE NRG Mucus detection in urine sediment by light microscopy NEGATIVE NRG Complete urinalysis with reflex to culture YES NRG Bacterial urine culture - 08/08/16 08:00 Bacterial urine culture [id number] NRG COLONY COUNT >100,000/ML NRG FTX;REPORTABLE SENSITIVITY REPORTED 08/10 08:25 NRG Bacterial susceptibility panel - 08/08/16 08:00 Gentamicin susceptibility test by minimum inhibitory concentration < = NRG Trimethoprim/sulfamethoxazole susceptibility test by minimum inhibitoryconcentration <= NRG Tobramycin susceptibility test by minimum inhibitory concentration < = NRG Cefazolin susceptibility test by minimum inhibitory concentration > = NRG Piperacillin/tazobactam susceptibility test by minimum inhibitory concentration <= NRG Ciprofloxacin susceptibility test by minimum inhibitory concentration <= NRG Meropenem susceptibility test by minimum inhibitory concentration < = NRG Nitrofurantoin susceptibility test by minimum inhibitory concentration 64 NRG Aztreonam susceptibility test by minimum inhibitory concentration < = NRG Cefepime susceptibility test by minimum inhibitory concentration <= NRG Serum or plasma lactate measurement (moles/volume) - 08/08/16 09:45 Serum or plasma lactate measurement (moles/volume) 2.73 mmol/L 0.50-2.00 Complete blood count (CBC) with automated white blood cell (WBC) differential - 10/03/16 12:05 Blood leukocytes automated count (number/volume) 12.6 10*3/uL 4.3-11.0 Blood erythrocytes automated count (number/volume) 4.73 10*6/uL 4.35-5.85 Venous blood hemoglobin measurement (mass/volume) 13.0 g/dL 13.3-17.7 Blood hematocrit (volume fraction) 40 % 40-54 Automated erythrocyte mean corpuscular volume 85 [foz_us] 80-99 Automated erythrocyte mean corpuscular hemoglobin (mass per erythrocyte) 28 pg 25-34 Automated erythrocyte mean corpuscular hemoglobin concentration measurement ( mass/volume) 32 g/dL 32-36 Automated erythrocyte distribution width ratio 13.1 % 10.0-14.5 Automated blood platelet count (count/volume) 277 10*3/uL 130-400 Automated blood platelet mean volume measurement 8.9 [foz_us] 7.4-10.4 Automated blood neutrophils/100 leukocytes 78 % 42-75 Automated blood lymphocytes/100 leukocytes 9 % 12-44 Blood monocytes/100 leukocytes 10 % 0-12 Automated blood eosinophils/100 leukocytes 2 % 0-10 Automated blood basophils/100 leukocytes 0 % 0-10 Blood neutrophils automated count (number/volume) 9.8 10*3 1.8-7.8 Blood lymphocytes automated count (number/volume) 1.1 10*3 1.0-4.0 Blood monocytes automated count (number/volume) 1.3 10*3 0.0-1.0 Automated eosinophil count 0.3 10*3/uL 0.0-0.3 Automated blood basophil count (count/volume) 0.0 10*3/uL 0.0-0.1 Complete urinalysis with reflex to culture - 10/03/16 12:05 Urine color determination YELLOW NRG Urine clarity determination SLIGHTLY CLOUDY NRG Urine pH measurement by test strip 6 5-9 Specific gravity of urine by test strip 1.015 1.016- 1.022 Urine protein assay by test strip, semi-quantitative 1+ NEGATIVE Urine glucose detection by automated test strip NEGATIVE NEGATIVE Erythrocytes detection in urine sediment by light microscopy 5+ NEGATIVE Urine ketones detection by automated test strip NEGATIVE NEGATIVE Urine nitrite detection by test strip NEGATIVE NEGATIVE Urine total bilirubin detection by test strip NEGATIVE NEGATIVE Urine urobilinogen measurement by automated test strip (mass/volume) NORMAL NORMAL Urine leukocyte esterase detection by dipstick 3+ NEGATIVE Automated urine sediment erythrocyte count by microscopy (number/high power field) NONE NRG Automated urine sediment leukocyte count by microscopy (number/high power field ) [HPF] NRG Bacteria detection in urine sediment by light microscopy LARGE NRG Crystals detection in urine sediment by light microscopy NONE NRG Casts detection in urine sediment by light microscopy NONE NRG Mucus detection in urine sediment by light microscopy NEGATIVE NRG Complete urinalysis with reflex to culture YES NRG Comprehensive metabolic panel - 10/03/16 12:05 Serum or plasma sodium measurement (moles/volume) 137 mmol/L 135-145 Serum or plasma potassium measurement (moles/volume) 4.2 mmol/L 3.6-5.0 Serum or plasma chloride measurement (moles/volume) 102 mmol/L 98-107 Carbon dioxide 27 mmol/L 21-32 Serum or plasma anion gap determination (moles/volume) 8 mmol/L 5-14 Serum or plasma urea nitrogen measurement (mass/volume) 13 mg/dL 7-18 Serum or plasma creatinine measurement (mass/volume) 0.78 mg/dL 0.60-1.30 Serum or plasma urea nitrogen/creatinine mass ratio 17 NRG Serum or plasma creatinine measurement with calculation of estimated glomerular filtration rate > NRG Serum or plasma glucose measurement (mass/volume) 102 mg/dL 70-105 Serum or plasma calcium measurement (mass/volume) 8.8 mg/dL 8.5-10.1 Serum or plasma total bilirubin measurement (mass/volume) 0.4 mg/dL 0.1-1.0 Serum or plasma alkaline phosphatase measurement (enzymatic activity/volume) 83 U/L 40-136 Serum or plasma aspartate aminotransferase measurement (enzymatic activity/ volume) 15 U/L 5-34 Serum or plasma alanine aminotransferase measurement (enzymatic activity/volume ) 10 U/L 0-55 Serum or plasma protein measurement (mass/volume) 7.5 g/dL 6.4-8.2 Serum or plasma albumin measurement (mass/volume) 3.6 g/dL 3.2-4.5 Bacterial urine culture - 10/03/16 12:05 Bacterial urine culture [id number] NRG COLONY COUNT >100,000/ML NR FTX;REPORTABLE SENSITIVITY REPORTED 10/05/16 11:00 [facility] Bacterial susceptibility panel - 10/03/16 12:05 Gentamicin susceptibility test by minimum inhibitory concentration < = NRG Trimethoprim/sulfamethoxazole susceptibility test by minimum inhibitoryconcentration <= NRG Ampicillin susceptibility test by minimum inhibitory concentration > = NRG Tobramycin susceptibility test by minimum inhibitory concentration < = NRG Cefazolin susceptibility test by minimum inhibitory concentration < = NRG Ceftriaxone susceptibility test by minimum inhibitory concentration <= NRG Ampicillin/sulbactam susceptibility test by minimum inhibitory concentration 4 NRG Piperacillin/tazobactam susceptibility test by minimum inhibitory concentration <= NRG Ciprofloxacin susceptibility test by minimum inhibitory concentration <= NRG Meropenem susceptibility test by minimum inhibitory concentration < = NRG Nitrofurantoin susceptibility test by minimum inhibitory concentration <= NRG Aztreonam susceptibility test by minimum inhibitory concentration < = NRG Extended spectrum beta lactamase (ESBL) producing bacteria susceptibility test by minimum inhibitory concentration - [facility] Comprehensive metabolic panel - 01/30/17 15:43 Serum or plasma sodium measurement (moles/volume) 139 mmol/L 135-145 Serum or plasma potassium measurement (moles/volume) 4.1 mmol/L 3.6-5.0 Serum or plasma chloride measurement (moles/volume) 103 mmol/L 98-107 Carbon dioxide 25 mmol/L 21-32 Serum or plasma anion gap determination (moles/volume) 11 mmol/L 5-14 Serum or plasma urea nitrogen measurement (mass/volume) 13 mg/dL 7-18 Serum or plasma creatinine measurement (mass/volume) 0.85 mg/dL 0.60-1.30 Serum or plasma urea nitrogen/creatinine mass ratio 15 [facility] Serum or plasma creatinine measurement with calculation of estimated glomerular filtration rate > [facility] Serum or plasma glucose measurement (mass/volume) 149 mg/dL 70-105 Serum or plasma calcium measurement (mass/volume) 8.6 mg/dL 8.5-10.1 Serum or plasma total bilirubin measurement (mass/volume) 0.4 mg/dL 0.1-1.0 Serum or plasma alkaline phosphatase measurement (enzymatic activity/volume) 96 U/L 40-136 Serum or plasma aspartate aminotransferase measurement (enzymatic activity/ volume) 18 U/L 5-34 Serum or plasma alanine aminotransferase measurement (enzymatic activity/volume ) 15 U/L 0-55 Serum or plasma protein measurement (mass/volume) 7.9 g/dL 6.4-8.2 Serum or plasma albumin measurement (mass/volume) 3.7 g/dL 3.2-4.5 Serum or plasma amylase measurement (enzymatic activity/volume) - 01/30/17 15: 43 Serum or plasma amylase measurement (enzymatic activity/volume) 71 U /L 25-125 Lipase - 01/30/17 15:43 Lipase 14 U/L 8-78 Complete blood count (CBC) with automated white blood cell (WBC) differential - 01/30/17 15:43 Blood leukocytes automated count (number/volume) 12.3 10*3/uL 4.3-11.0 Blood erythrocytes automated count (number/volume) 5.08 10*6/uL 4.35-5.85 Venous blood hemoglobin measurement (mass/volume) 14.1 g/dL 13.3-17.7 Blood hematocrit (volume fraction) 42 % 40-54 Automated erythrocyte mean corpuscular volume 83 [foz_us] 80-99 Automated erythrocyte mean corpuscular hemoglobin (mass per erythrocyte) 28 pg 25-34 Automated erythrocyte mean corpuscular hemoglobin concentration measurement ( mass/volume) 33 g/dL 32-36 Automated erythrocyte distribution width ratio 14.5 % 10.0-14.5 Automated blood platelet count (count/volume) 191 10*3/uL 130-400 Automated blood platelet mean volume measurement 9.9 [[facility]] 7.4-10.4 Automated blood neutrophils/100 leukocytes 75 % 42-75 Automated blood lymphocytes/100 leukocytes 12 % 12-44 Blood monocytes/100 leukocytes 10 % 0-12 Automated blood eosinophils/100 leukocytes 2 % 0-10 Automated blood basophils/100 leukocytes 0 % 0-10 Blood neutrophils automated count (number/volume) 9.3 10*3 1.8-7.8 Blood lymphocytes automated count (number/volume) 1.5 10*3 1.0-4.0 Blood monocytes automated count (number/volume) 1.3 10*3 0.0-1.0 Automated eosinophil count 0.2 10*3/uL 0.0-0.3 Automated blood basophil count (count/volume) 0.0 10*3/uL 0.0-0.1 Complete urinalysis with reflex to culture - 01/30/17 16:30 Urine color determination YELLOW NRG Urine clarity determination CLEAR NRG Urine pH measurement by test strip 7 5-9 Specific gravity of urine by test strip 1.005 1.016- 1.022 Urine protein assay by test strip, semi-quantitative NEGATIVE NEGATIVE Urine glucose detection by automated test strip NEGATIVE NEGATIVE Erythrocytes detection in urine sediment by light microscopy 1+ NEGATIVE Urine ketones detection by automated test strip NEGATIVE NEGATIVE Urine nitrite detection by test strip POSITIVE NEGATIVE Urine total bilirubin detection by test strip NEGATIVE NEGATIVE Urine urobilinogen measurement by automated test strip (mass/volume) NORMAL NORMAL Urine leukocyte esterase detection by dipstick 2+ NEGATIVE Automated urine sediment erythrocyte count by microscopy (number/high power field) RARE NRG Automated urine sediment leukocyte count by microscopy (number/high power field ) [HPF] NRG Bacteria detection in urine sediment by light microscopy LARGE NRG Crystals detection in urine sediment by light microscopy NONE NRG Casts detection in urine sediment by light microscopy NONE NRG Mucus detection in urine sediment by light microscopy NEGATIVE NRG Complete urinalysis with reflex to culture YES NRG Bacterial urine culture - 01/30/17 16:30 Bacterial urine culture [id number] NRG COLONY COUNT 10,000/ML - 100,000/ML NRG FTX;REPORTABLE SEE COMMENTS [facility] Bacterial susceptibility panel - 01/30/17 16:30 Gentamicin susceptibility test by minimum inhibitory concentration < = NRG Trimethoprim/sulfamethoxazole susceptibility test by minimum inhibitoryconcentration S NRG Tobramycin susceptibility test by minimum inhibitory concentration < = NRG Cefazolin susceptibility test by minimum inhibitory concentration > = NRG Piperacillin/tazobactam susceptibility test by minimum inhibitory concentration S NRG Ciprofloxacin susceptibility test by minimum inhibitory concentration <= NRG Meropenem susceptibility test by minimum inhibitory concentration < = NRG Nitrofurantoin susceptibility test by minimum inhibitory concentration 32 NRG Aztreonam susceptibility test by minimum inhibitory concentration < = NRG Cefepime susceptibility test by minimum inhibitory concentration <= NRG Influenza virus A and B antigen detection - 02/13/17 10:52 FLU RESULT NEGATIVE FOR INFLUENZA A AND B ANTIGENS BY IA NR Complete blood count (CBC) with automated white blood cell (WBC) differential - 02/13/17 11:01 Blood leukocytes automated count (number/volume) 18.1 10*3/uL 4.3-11.0 Blood erythrocytes automated count (number/volume) 5.21 10*6/uL 4.35-5.85 Venous blood hemoglobin measurement (mass/volume) 14.4 g/dL 13.3-17.7 Blood hematocrit (volume fraction) 38 % 40-54 Automated erythrocyte mean corpuscular volume 72 [foz_us] 80-99 Automated erythrocyte mean corpuscular hemoglobin (mass per erythrocyte) 28 pg 25-34 Automated erythrocyte mean corpuscular hemoglobin concentration measurement ( mass/volume) 38 g/dL 32-36 Automated erythrocyte distribution width ratio 14.1 % 10.0-14.5 Automated blood platelet count (count/volume) 214 10*3/uL 130-400 Automated blood platelet mean volume measurement 8.8 [foz_us] 7.4-10.4 Automated blood neutrophils/100 leukocytes 91 % 42-75 Automated blood lymphocytes/100 leukocytes 4 % 12-44 Blood monocytes/100 leukocytes 5 % 0-12 Automated blood eosinophils/100 leukocytes 0 % 0-10 Automated blood basophils/100 leukocytes 0 % 0-10 Blood neutrophils automated count (number/volume) 16.5 10*3 1.8-7.8 Blood lymphocytes automated count (number/volume) 0.7 10*3 1.0-4.0 Blood monocytes automated count (number/volume) 0.9 10*3 0.0-1.0 Automated eosinophil count 0.1 10*3/uL 0.0-0.3 Automated blood basophil count (count/volume) 0.0 10*3/uL 0.0-0.1 Blood lactic acid measurement (moles/volume) - 02/13/17 11:01 Blood lactic acid measurement (moles/volume) 2.15 mmol/L 0.50-2.00 Comprehensive metabolic panel - 02/13/17 11:01 Serum or plasma sodium measurement (moles/volume) 140 mmol/L 135-145 Serum or plasma potassium measurement (moles/volume) 4.4 mmol/L 3.6-5.0 Serum or plasma chloride measurement (moles/volume) 105 mmol/L 98-107 Carbon dioxide 26 mmol/L 21-32 Serum or plasma anion gap determination (moles/volume) 9 mmol/L 5-14 Serum or plasma urea nitrogen measurement (mass/volume) 17 mg/dL 7-18 Serum or plasma creatinine measurement (mass/volume) 0.86 mg/dL 0.60-1.30 Serum or plasma urea nitrogen/creatinine mass ratio 20 NRG Serum or plasma creatinine measurement with calculation of estimated glomerular filtration rate > NRG Serum or plasma glucose measurement (mass/volume) 111 mg/dL 70-105 Serum or plasma calcium measurement (mass/volume) 8.6 mg/dL 8.5-10.1 Serum or plasma total bilirubin measurement (mass/volume) 0.4 mg/dL 0.1-1.0 Serum or plasma alkaline phosphatase measurement (enzymatic activity/volume) 83 U/L 40-136 Serum or plasma aspartate aminotransferase measurement (enzymatic activity/ volume) 24 U/L 5-34 Serum or plasma alanine aminotransferase measurement (enzymatic activity/volume ) 20 U/L 0-55 Serum or plasma protein measurement (mass/volume) 7.7 g/dL 6.4-8.2 Serum or plasma albumin measurement (mass/volume) 3.7 g/dL 3.2-4.5 Blood manual differential performed detection - 02/13/17 11:01 Blood monocytes/100 leukocytes 2 % NRG Manual blood segmented neutrophils/100 leukocytes 88 % NRG Blood band neutrophils/100 leukocytes 3 % NRG Manual blood lymphocytes/100 leukocytes 7 % NRG Manual eosinophils/100 leukocytes in nose 0 % NRG Manual blood basophils/100 leukocytes 0 % NRG Blood erythrocyte morphology finding identification NORMAL NRG Complete urinalysis with reflex to culture - 02/13/17 11:21 Urine color determination YELLOW NRG Urine clarity determination VERY CLOUDY NRG Urine pH measurement by test strip 5 5-9 Specific gravity of urine by test strip 1.020 1.016- 1.022 Urine protein assay by test strip, semi-quantitative NEGATIVE NEGATIVE Urine glucose detection by automated test strip NEGATIVE NEGATIVE Erythrocytes detection in urine sediment by light microscopy 1+ NEGATIVE Urine ketones detection by automated test strip NEGATIVE NEGATIVE Urine nitrite detection by test strip POSITIVE NEGATIVE Urine total bilirubin detection by test strip NEGATIVE NEGATIVE Urine urobilinogen measurement by automated test strip (mass/volume) NORMAL NORMAL Urine leukocyte esterase detection by dipstick 3+ NEGATIVE Automated urine sediment erythrocyte count by microscopy (number/high power field) NONE NRG Automated urine sediment leukocyte count by microscopy (number/high power field ) [HPF] NRG Bacteria detection in urine sediment by light microscopy LARGE NRG Squamous epithelial cells detection in urine sediment by light microscopy RARE NRG Crystals detection in urine sediment by light microscopy NONE NRG Casts detection in urine sediment by light microscopy NONE NRG Mucus detection in urine sediment by light microscopy NEGATIVE NRG Complete urinalysis with reflex to culture YES NRG Bacterial urine culture - 02/13/17 11:21 Bacterial urine culture SEE COMMEN NRG COLONY COUNT . NRG Serum or plasma lactate measurement (moles/volume) - 02/13/17 13:34 Serum or plasma lactate measurement (moles/volume) 4.86 mmol/L 0.50-2.00 Blood lactic acid measurement (moles/volume) - 02/13/17 16:42 Blood lactic acid measurement (moles/volume) 2.23 mmol/L 0.50-2.00 Serum or plasma lactate measurement (moles/volume) - 02/13/17 18:49 Serum or plasma lactate measurement (moles/volume) 3.99 mmol/L 0.50-2.00 Blood lactic acid measurement (moles/volume) - 02/13/17 20:55 Blood lactic acid measurement (moles/volume) 1.75 mmol/L 0.50-2.00 Complete blood count (CBC) with automated white blood cell (WBC) differential - 02/14/17 05:34 Blood leukocytes automated count (number/volume) 10.9 10*3/uL 4.3-11.0 Blood erythrocytes automated count (number/volume) 4.25 10*6/uL 4.35-5.85 Venous blood hemoglobin measurement (mass/volume) 11.7 g/dL 13.3-17.7 Blood hematocrit (volume fraction) 32 % 40-54 Automated erythrocyte mean corpuscular volume 76 [foz_us] 80-99 Automated erythrocyte mean corpuscular hemoglobin (mass per erythrocyte) 28 pg 25-34 Automated erythrocyte mean corpuscular hemoglobin concentration measurement ( mass/volume) 36 g/dL 32-36 Automated erythrocyte distribution width ratio 14.3 % 10.0-14.5 Automated blood platelet count (count/volume) 182 10*3/uL 130-400 Automated blood platelet mean volume measurement 9.5 [foz_us] 7.4-10.4 Automated blood neutrophils/100 leukocytes 79 % 42-75 Automated blood lymphocytes/100 leukocytes 11 % 12-44 Blood monocytes/100 leukocytes 8 % 0-12 Automated blood eosinophils/100 leukocytes 2 % 0-10 Automated blood basophils/100 leukocytes 0 % 0-10 Blood neutrophils automated count (number/volume) 8.5 10*3 1.8-7.8 Blood lymphocytes automated count (number/volume) 1.2 10*3 1.0-4.0 Blood monocytes automated count (number/volume) 0.9 10*3 0.0-1.0 Automated eosinophil count 0.2 10*3/uL 0.0-0.3 Automated blood basophil count (count/volume) 0.0 10*3/uL 0.0-0.1 Comprehensive metabolic panel - 02/14/17 05:34 Serum or plasma sodium measurement (moles/volume) 141 mmol/L 135-145 Serum or plasma potassium measurement (moles/volume) 4.0 mmol/L 3.6-5.0 Serum or plasma chloride measurement (moles/volume) 111 mmol/L 98-107 Carbon dioxide 22 mmol/L 21-32 Serum or plasma anion gap determination (moles/volume) 8 mmol/L 5-14 Serum or plasma urea nitrogen measurement (mass/volume) 13 mg/dL 7-18 Serum or plasma creatinine measurement (mass/volume) 0.80 mg/dL 0.60-1.30 Serum or plasma urea nitrogen/creatinine mass ratio 16 NRG Serum or plasma creatinine measurement with calculation of estimated glomerular filtration rate > NRG Serum or plasma glucose measurement (mass/volume) 98 mg/dL 70-105 Serum or plasma calcium measurement (mass/volume) 7.7 mg/dL 8.5-10.1 Serum or plasma total bilirubin measurement (mass/volume) 0.5 mg/dL 0.1-1.0 Serum or plasma alkaline phosphatase measurement (enzymatic activity/volume) 64 U/L 40-136 Serum or plasma aspartate aminotransferase measurement (enzymatic activity/ volume) 19 U/L 5-34 Serum or plasma alanine aminotransferase measurement (enzymatic activity/volume ) 16 U/L 0-55 Serum or plasma protein measurement (mass/volume) 6.0 g/dL 6.4-8.2 Serum or plasma albumin measurement (mass/volume) 3.1 g/dL 3.2-4.5 Encounters ACCT No. Visit Date/Time Discharge Status Pt. Type Provider Facility Loc./Unit Complaint [id number] 01/30/2017 15:06:00 01/30/2017 17:46:00 DIS Outpatient MILO GAMBOA DO [facility] ER RT FLANK PAIN [id number] 01/13/2017 13:57:00 01/13/2017 23:59:59 CLS Outpatient AMY DENNEY DO [facility] RAD LEFT COMPLEX SEPTATED CYST [id number] 10/03/2016 11:52:00 10/03/2016 16:26:00 DIS Emergency LIOR COOK APRN [facility] ER HERNIA [id number] 09/24/2016 08:34:00 09/24/2016 23:59:59 CLS Outpatient AMY DENNEY DO [facility] RAD SWELLING OF TESTICLE [id number] 08/08/2016 07:41:00 08/08/2016 11:49:00 DIS Emergency MILO GAMBOA DO [facility] ER FEVER [id number] 07/17/2016 10:15:00 07/17/2016 23:59:59 CLS Preadmit CARMELITA BEAN FACC, ALI FACP CCDS [facility] RAD 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,CHB I44.2 [id number] 06/21/2016 19:15:00 06/21/2016 23:59:59 CLS Outpatient AMY DENNEY DO [facility] MLF N39.0 [id number] 06/20/2016 07:54:00 06/20/2016 23:59:59 CLS Outpatient CARMELITA BEAN FACC, ALI FACP CCDS [facility] CARD R06.02 EXERTIONAL SOB [id number] 06/18/2016 12:56:00 06/18/2016 23:59:59 CLS Outpatient CARMELITA MCCALLUMC, ALI FACP CCDS [facility] RAD R06.02 EXERTIONAL SOB [id number] 06/17/2016 08:58:00 06/17/2016 23:59:59 CLS Outpatient CARMELITA MCCALLUMC, ALI FACP CCDS [facility] CARD R06.02 EXERETIONAL SOB [id number] 05/30/2016 00:11:00 05/30/2016 23:59:59 CLS Preadmit AMY DENNEY DO [facility] LAB COUGH,CONGESTION, ELEVATED TEMP [id number] 02/29/2016 10:00:00 05/29/2016 00:01:00 DIS Outpatient AMY DENNEY DO [facility] LAB COUGH,CONGESTION, ELEVATED TEMP [id number] 10/26/2014 08:05:00 10/26/2014 23:59:59 CLS Outpatient CARMELITA BEAN FACC, ALI FACP CCDS [facility] RAD AAA [id number] 06/30/2014 08:14:00 07/01/2014 15:25:00 DIS Outpatient MARILIA MCNAIR MD [facility] CATH PAD [id number] 06/27/2014 06:54:00 06/28/2014 16:10:00 DIS Outpatient MARILIA MCNAIR MD [facility] CATH PAD,HTN [id number] 06/16/2014 12:49:00 06/16/2014 23:59:59 CLS Outpatient ANDREKATLYN GUTIERREZ AMY Wilman [facility] RAD NON PULSE IN BOTH FEET [id number] 12/23/2013 15:00:00 01/11/2014 13:00:00 DIS Inpatient SATYA BEAN, DAYSI Brown [facility] IRF 3RD DEGREE HEART BLOCK [id number] 12/20/2013 11:50:00 12/23/2013 15:00:00 DIS Inpatient CARMELITA BEAN FACC, RAMANA ALARCON CCDS [facility] CSD 3RD DEGREE HEART BLOCK [id number] 02/13/2017 11:14:00 Document Registration [id number] 12/23/2013 15:34:00 Document Registration [id number] 10/05/2008 16:00:00 Document Registration
[2017-02-15 00:05] VITALS: BP 135/77
[2017-02-15] MEDS: NS IV 1000 ML 1,000 ML IV SCH ×3 (01:59→22:25)
[2017-02-15] MEDS: PIPERACILLIN/TAZOBACTAM 4.5 GM/NS 100 ML IVPB IV SCH ×6 (01:59→18:16)
[2017-02-15 06:50] LABS: HEMOGLOBIN 12.5 G/DL (13.3-17.7); MEAN PLATELET VOLUME 9.6 FL (7.4-10.4); RED BLOOD COUNT 4.53 10^6/uL (4.35-5.85); RED CELL DISTRIBUTION WIDTH 14.6 % (10.0-14.5); WHITE BLOOD COUNT 9.2 10^3/uL (4.3-11.0)
[2017-02-15 07:07] LABS: BUN/CREATININE RATIO 9; CALCIUM 8.1 MG/DL (8.5-10.1); CARBON DIOXIDE 24 MMOL/L (21-32); CHLORIDE 107 MMOL/L (98-107); CREATININE SERUM 0.82 MG/DL (0.60-1.30); GFR ESTIMATED > 60; GLUCOSE 98 MG/DL (70-105); POTASSIUM 3.7 MMOL/L (3.6-5.0); SODIUM 140 MMOL/L (135-145)
[2017-02-15 08:36] VITALS: BP 138/79
[2017-02-15] MEDS: meTOprolol TARTRATE 50 MG (LOPRESSOR) TAB PO SCH ×2 (09:33→20:33)
[2017-02-15] MEDS: amLODIPine 2.5MG (NORVASC) TAB PO SCH (09:33)
[2017-02-15] MEDS: CLOPIDOGREL 75 MG (PLAVIX) TABLET PO SCH (09:34)
[2017-02-15] MEDS: DOCUSATE SODIUM 100 MG (COLACE) CAP PO SCH ×3 (09:34→20:32)
[2017-02-15] MEDS: KCL 10 MEQ TAB (MICRO K) PO SCH (09:34)
[2017-02-15] MEDS: CYCLOBENZAPRINE 10 MG (FLEXERIL) TAB PO SCH ×2 (09:34→20:32)
[2017-02-15] MEDS: ASPIRIN E.C. 81 MG (ECOTRIN) TAB PO SCH (09:34)
[2017-02-15 10:41] LABS: CLARITY,URINE CLOUDY; COLOR,URINE YELLOW; PH,URINE 6.5 (5-9)
[2017-02-15 10:42] LABS: BILIRUBIN,URINE NEGATIVE (NEGATIVE); GLUCOSE, URINE (UA) NEGATIVE (NEGATIVE); KETONES,URINE NEGATIVE (NEGATIVE); LEUKOCYTE ESTERASE ,URINE 1+ (NEGATIVE); NITRITE,URINE NEGATIVE (NEGATIVE); PROTEIN,URINE NEGATIVE (NEGATIVE); UROBILINOGEN,URINE NORMAL (NORMAL)
[2017-02-15 10:44] LABS: WBC,URINE 0-2 /HPF
[2017-02-15 10:45] LABS: BACTERIA,URINE FEW /HPF
--- NOTE | 2017-02-15 12:19 | Progress Note-Hospitalist ---
Progress Note Progress Notes/Assess & Plan Date Seen 02/15/17 Time Seen by Provider: 11:30 Diagonsis/Assessment & Plan Patient is doing much better still has a cough and declines breathing treatments Does his own self catheters and needs more of a supply at bedside Overall feels much better Labs reviewed and all within normal limits Has no new complaints Bowels are moving No fever, vital signs stable, pleasant, improved Regular rate and rhythm, clear to auscultation bilaterally but diminished in the bases with upper respiratory crackles Laboratory Tests 02/15/17 06:07 Assessment: Sepsis Pneumonia Resistant urinary tract infection Neurogenic bladder perform self catheters Cerebral palsy Plan: Continue antibiotics Out of bed Monitor closely BONIFACIO WHITTEN DO Feb 15, 2017 12:19
[2017-02-15 16:44] VITALS: BP 137/86
[2017-02-15] MEDS: GABAPENTIN 300 MG (NEURONTIN) CAP PO SCH (20:32)
[2017-02-16 00:53] VITALS: BP 135/82
[2017-02-16] MEDS: PIPERACILLIN/TAZOBACTAM 4.5 GM/NS 100 ML IVPB IV SCH ×6 (01:22→16:33)
[2017-02-16 07:03] VITALS: BP 135/82
[2017-02-16] MEDS: CLOPIDOGREL 75 MG (PLAVIX) TABLET PO SCH (08:20)
[2017-02-16] MEDS: ASPIRIN E.C. 81 MG (ECOTRIN) TAB PO SCH (08:20)
[2017-02-16] MEDS: DOCUSATE SODIUM 100 MG (COLACE) CAP PO SCH ×4 (08:20→20:29)
[2017-02-16] MEDS: CYCLOBENZAPRINE 10 MG (FLEXERIL) TAB PO SCH ×2 (08:20→20:28)
[2017-02-16] MEDS: KCL 10 MEQ TAB (MICRO K) PO SCH (08:20)
[2017-02-16] MEDS: amLODIPine 2.5MG (NORVASC) TAB PO SCH (08:20)
[2017-02-16] MEDS: meTOprolol TARTRATE 50 MG (LOPRESSOR) TAB PO SCH ×2 (08:20→20:28)
[2017-02-16 08:41] VITALS: BP 168/83
[2017-02-16] MEDS ORDERED: RT-ALBUTEROL SULF 2.5 MG/3 ML PRE-MIX VIAL INH PRN (09:00)
--- NOTE | 2017-02-16 11:24 | Progress Note-Hospitalist ---
Progress Note Progress Notes/Assess & Plan Date Seen 02/16/17 Time Seen by Provider: 10:45 Diagonsis/Assessment & Plan Patient is doing well and no changes from yesterday Does his own self caths Overall feels much better Has no new complaints Bowels are moving No fever, vital signs stable, pleasant, improved Regular rate and rhythm, clear to auscultation bilaterally but diminished in the bases with upper respiratory crackles Assessment: Sepsis Pneumonia Resistant urinary tract infection Neurogenic bladder perform self catheters Cerebral palsy Plan: Continue antibiotics Out of bed Monitor closely BONIFACIO WHITTEN DO Feb 16, 2017 11:24
[2017-02-16] MEDS: NS IV 1000 ML 1,000 ML IV SCH (15:14)
[2017-02-16] MEDS: RT-ALBUTEROL SULF 2.5 MG/3 ML PRE-MIX VIAL INH SCH ×2 (16:10→19:53)
[2017-02-16 16:21] VITALS: BP 150/87
[2017-02-16] MEDS: GABAPENTIN 300 MG (NEURONTIN) CAP PO SCH (20:28)
[2017-02-17] VITALS: BP 133/81
[2017-02-17] MEDS: PIPERACILLIN/TAZOBACTAM 4.5 GM/NS 100 ML IVPB IV SCH ×6 (01:06→18:06)
[2017-02-17] MEDS: RT-ALBUTEROL SULF 2.5 MG/3 ML PRE-MIX VIAL INH SCH ×4 (03:00→18:44)
--- NOTE | 2017-02-17 07:55 | Progress Note (SOAP) ---
Subjective Time Seen by Provider: 07:50 Subjective/Events-last exam sepsis. Pneumonia. UTI. To self catheter. Patient refused breathing treatment but still has congestion in his chest. Patient states he'll go back to the breathing treatments. UTI resolved. Patient good direction Objective Exam Vital Signs Date Time Temp Pulse Resp B/P (MAP) Pulse Ox O2 Delivery O2 Flow Rate FiO2 02/17/17 00:00 98.2 66 18 133/81 (98) 93 Room Air 02/16/17 20:28 Room Air 02/16/17 19:54 93 Room Air 02/16/17 16:21 98.7 68 22 150/87 (108) 96 Room Air 02/16/17 08:41 97.6 86 22 168/83 (111) 98 Room Air I & O 02/17/17 07:00 Intake Total 1900 ml Output Total 2875 ml Balance -975 ml Capillary Refill : Less Than 3 SecondsLess Than 3 Seconds General Appearance: No Apparent Distress, WD/WN HEENT: Normal ENT Inspection Neck: Full Range of Motion, Normal Inspection Respiratory: Chest Non Tender, No Accessory Muscle Use, No Respiratory Distress , Other (ingestion in chest,'s spitting up phlegm) Cardiovascular: Regular Rate, Rhythm, No Murmur Gastrointestinal: non tender, soft Results Lab Microbiology 02/13/17 Blood Culture - Preliminary, Resulted No growth 02/13/17 Influenza Types A,B Antigen (SILVINA) - Final, Complete 02/13/17 Urine Culture - Final, Complete Enterobacter Cloacae Strep, Beta Hemolytic Group B Assessment/Plan Assessment/Plan Assess & Plan/Chief Complaint sepsis. UTI. Respiratory infection. Cerebral palsy. . 02/17/17. Sepsis. UTI. Respiratory infection. Cerebral palsy. Patient does self-catheterization. Patient still has congestion in his chest has recently been refusing pulmonary treatments. Patient states he'll take treatments. Plan to discharge tomorrow Clinical Quality Measures DVT/VTE Risk/Contraindication: Risk Factor Score Per Nursin RFS Level Per Nursing on Admit: 2=Moderate Contraindications-Pharm: Other *list below* AMY DENNEY DO Feb 17, 2017 07:55
[2017-02-17 08:00] VITALS: BP 135/79
[2017-02-17] MEDS ORDERED: amLODIPine 2.5MG (NORVASC) TAB PO SCH (09:00)
[2017-02-17] MEDS: meTOprolol TARTRATE 50 MG (LOPRESSOR) TAB PO SCH ×2 (09:23→21:03)
[2017-02-17] MEDS: ASPIRIN E.C. 81 MG (ECOTRIN) TAB PO SCH (09:23)
[2017-02-17] MEDS: CYCLOBENZAPRINE 10 MG (FLEXERIL) TAB PO SCH ×2 (09:23→21:03)
[2017-02-17] MEDS: CLOPIDOGREL 75 MG (PLAVIX) TABLET PO SCH (09:23)
[2017-02-17] MEDS: amLODIPine 5 MG (NORVASC) TAB PO SCH (09:23)
[2017-02-17] MEDS: KCL 10 MEQ TAB (MICRO K) PO SCH (09:23)
[2017-02-17] MEDS: DOCUSATE SODIUM 100 MG (COLACE) CAP PO SCH ×3 (09:28→21:03)
[2017-02-17] MEDS: NS IV 1000 ML 1,000 ML IV SCH (12:10)
[2017-02-17 16:38] VITALS: BP 132/82
[2017-02-17 20:00] VITALS: BP 117/74
[2017-02-17] MEDS: GABAPENTIN 300 MG (NEURONTIN) CAP PO SCH (21:03)
[2017-02-18 00:20] VITALS: BP 125/72
[2017-02-18] MEDS: PIPERACILLIN/TAZOBACTAM 4.5 GM/NS 100 ML IVPB IV SCH ×4 (01:32→10:31)
[2017-02-18] MEDS: RT-ALBUTEROL SULF 2.5 MG/3 ML PRE-MIX VIAL INH SCH ×2 (02:02→07:18)
[2017-02-18 07:10] LABS: HEMOGLOBIN 12.5 G/DL (13.3-17.7); MEAN PLATELET VOLUME 9.5 FL (7.4-10.4); RED BLOOD COUNT 4.47 10^6/uL (4.35-5.85); RED CELL DISTRIBUTION WIDTH 14.3 % (10.0-14.5)
[2017-02-18 07:24] LABS: BUN/CREATININE RATIO 14; CALCIUM 8.2 MG/DL (8.5-10.1); CARBON DIOXIDE 22 MMOL/L (21-32); CHLORIDE 108 MMOL/L (98-107); CREATININE SERUM 0.84 MG/DL (0.60-1.30); GFR ESTIMATED > 60; GLUCOSE 94 MG/DL (70-105); POTASSIUM 3.5 MMOL/L (3.6-5.0); SODIUM 139 MMOL/L (135-145)
[2017-02-18 08:00] VITALS: BP 121/63
--- NOTE | 2017-02-18 08:22 | Progress Note (SOAP) ---
Subjective Time Seen by Provider: 08:20 Subjective/Events-last exam patient feeling better and doing better. Patient to be discharged today. Lung congestion is better with the breathing treatments. infection resolved. Cerebral palsy. Objective Exam Vital Signs Date Time Temp Pulse Resp B/P (MAP) Pulse Ox O2 Delivery O2 Flow Rate FiO2 02/18/17 07:19 93 Room Air 02/18/17 02:02 94 Room Air 02/18/17 00:20 97.9 66 18 125/72 (89) 91 Room Air 02/17/17 21:00 Room Air 02/17/17 20:00 76 117/74 (88) 02/17/17 18:44 93 Room Air 02/17/17 16:38 98.8 71 18 132/82 (99) 94 Room Air 02/17/17 09:22 Room Air 02/17/17 08:48 92 Room Air I & O 02/18/17 07:00 Intake Total 2930 ml Output Total 2575 ml Balance 355 ml Capillary Refill : Less Than 3 SecondsLess Than 3 Seconds General Appearance: No Apparent Distress, WD/WN HEENT: Normal ENT Inspection Neck: Full Range of Motion, Normal Inspection Respiratory: Chest Non Tender, No Accessory Muscle Use, No Respiratory Distress , Other (gesturing less) Cardiovascular: Regular Rate, Rhythm, No Murmur Gastrointestinal: non tender, soft Results Lab Laboratory Tests 02/18/17 06:34 Laboratory Tests 02/18/17 06:34: White Blood Count 7.0, Red Blood Count 4.47, Hemoglobin 12.5L, Hematocrit 37L, Mean Corpuscular Volume 83, Mean Corpuscular Hemoglobin 28, Mean Corpuscular Hemoglobin Concent 34, Red Cell Distribution Width 14.3, Platelet Count 205, Mean Platelet Volume 9.5, Sodium Level 139, Potassium Level 3.5L, Chloride Level 108H, Carbon Dioxide Level 22, Anion Gap 9, Blood Urea Nitrogen 12, Creatinine 0.84, Estimat Glomerular Filtration Rate > 60, BUN/Creatinine Ratio 14, Glucose Level 94, Calcium Level 8.2L Microbiology 02/13/17 Blood Culture - Preliminary, Resulted No growth 02/13/17 Influenza Types A,B Antigen (SILVINA) - Final, Complete 02/13/17 Urine Culture - Final, Complete Enterobacter Cloacae Strep, Beta Hemolytic Group B Assessment/Plan Assessment/Plan Assess & Plan/Chief Complaint sepsis. UTI. Respiratory infection. Cerebral palsy. . 02/17/17. Sepsis. UTI. Respiratory infection. Cerebral palsy. Patient does self-catheterization. Patient still has congestion in his chest has recently been refusing pulmonary treatments. Patient states he'll take treatments. Plan to discharge tomorrowarea . 02/18/17. Sepsis. UTI resolved. Respiratory infection better. Cerebral palsy Patient self catheters. Plan to discharge today. Clinical Quality Measures DVT/VTE Risk/Contraindication: Risk Factor Score Per Nursin RFS Level Per Nursing on Admit: 2=Moderate Contraindications-Pharm: Other *list below* AMY DENNEY DO Feb 18, 2017 08:22
[2017-02-18] MEDS: meTOprolol TARTRATE 50 MG (LOPRESSOR) TAB PO SCH (08:58)
[2017-02-18] MEDS: amLODIPine 5 MG (NORVASC) TAB PO SCH (08:58)
[2017-02-18] MEDS: KCL 10 MEQ TAB (MICRO K) PO SCH (08:58)
[2017-02-18] MEDS: CYCLOBENZAPRINE 10 MG (FLEXERIL) TAB PO SCH (08:58)
[2017-02-18] MEDS: CLOPIDOGREL 75 MG (PLAVIX) TABLET PO SCH (08:58)
[2017-02-18] MEDS: ASPIRIN E.C. 81 MG (ECOTRIN) TAB PO SCH (08:59)
[2017-02-18] MEDS: DOCUSATE SODIUM 100 MG (COLACE) CAP PO SCH ×2 (09:00→14:15)
[2017-02-18] MEDS ORDERED: CEFD300C3 PO (11:43)
[2017-02-18] MEDS ORDERED: ALBU2.5V4 IH (11:43)
--- NOTE | 2017-02-18 12:22 | Discharge Inst-Skilled Nursing ---
Discharge Inst-Skilled NF Consult/Follow Up/Orders Skilled NF Admit to: [facility] Certification (SNF) I certify that SNF services are required to be given on an inpatient basis because of the above named patient's need for usp care on a continuing basis for the conditions(s) for which he/she was receiving inpatient hospital services prior to his/her transfer to the SNF. Long-Term Facility Order: Nursing Services, Performance Improvement Coordinator-Evaluate & Treat, Physical Therapy-Evaluate & Treat Discharge Diet: Regular Diet Daily Activity as Tolerated: Yes New & Resume Previous Orders Bo Denney Feb 18, 2017 12:21 BO DENNEY DO Feb 18, 2017 12:22
== END 2017-02-18 14:45 | DRG 871 ==
LOC: EDUNIT# 09:56 → ER 09:57 → 4TH 11:37
PROVIDERS: ADMIT Family Medicine; ATTEND Family Medicine
DX: A41.9 Sepsis, unspecified organism (principal); J18.9 Pneumonia, unspecified organism; N39.0 Urinary tract infection, site not specified; J30.2 Other seasonal allergic rhinitis; I10 Essential (primary) hypertension; Z66 Do not resuscitate; B37.2 Candidiasis of skin and nail; G80.9 Cerebral palsy, unspecified; N31.9 Neuromuscular dysfunction of bladder, unspecified; N40.0 Benign prostatic hyperplasia without lower urinary tract symptoms; R53.1 Weakness; R26.2 Difficulty in walking, not elsewhere classified; M19.91 Primary osteoarthritis, unspecified site; K21.9 Gastro-esophageal reflux disease without esophagitis; K59.09 Other constipation; H26.9 Unspecified cataract; H40.9 Unspecified glaucoma; Z95.0 Presence of cardiac pacemaker; Z87.891 Personal history of nicotine dependence
CPT/HCPCS: 36415; 71045; 80048; 80053; 81000; 83605; 85007; 85025; 85027; 87040; 87077; 87088; 87186; 87804; 94640; 94664; 94760; 96361; 96365

== ENCOUNTER → 2017-04-10 | Outpatient (CLI) | payer MEDICARE, MEDICAID ==
[~2017-04-10] MED LIST changes: +ALBU2.5V4 IH; +AMLO2.5T PO; +ASCO-262 PO; +ASPI-983 PO; +CEFD300C3 PO; +CLOP75TA69 PO; +CRAN450T9 PO; +CYCL10TA9 PO; +DOCU100C37 PO; +GABA-488 PO; +LACT1TAB9 PO; +MAGN400O7 PO; +METO50TA15 PO; +POTA10TA36 PO; +TR1C15 TP
--- NOTE | 2017-04-10 13:08 | Diagnostic Imaging Report ---
INDICATION: Respiratory infection. TIME OF EXAM: 1:03 PM Correlation is made with prior study from 02/14/2017. FINDINGS: The heart size is stable. Cardiac pacemaker remains in place. Lungs are hyperinflated consistent with COPD. No infiltrates are detected. No effusion or pneumothorax is identified. IMPRESSION: COPD. No acute feature is detected. Dictated by: Dictated on workstation # [id number]
== END ==
LOC: RAD 12:29
PROVIDERS: ATTEND Family Medicine
DX: J44.9 Chronic obstructive pulmonary disease, unspecified (principal)
CPT/HCPCS: 71046

== ENCOUNTER → 2018-08-20 | Outpatient (CLI) | payer MEDICARE, MEDICAID ==
[~2018-08-20] MED LIST changes: -AMLO2.5T PO; +AMLO2.5T4 PO
--- NOTE | 2018-08-20 16:53 | Diagnostic Imaging Report ---
INDICATION: Cough. TIME OF EXAM: 12:36 p.m. COMPARISON: Comparison is made with prior chest from 04/10/2017. FINDINGS: Heart size is stable. Dual-lead left subclavian cardiac pacemaker remains in place. Lungs are clear. No infiltrates are seen. There is no effusion or pneumothorax. IMPRESSION: No acute cardiopulmonary process is detected. Dictated by: Dictated on workstation # [id number]
== END ==
LOC: RAD 12:17
PROVIDERS: ATTEND Family Medicine
DX: J18.9 Pneumonia, unspecified organism (principal); Z95.0 Presence of cardiac pacemaker
CPT/HCPCS: 71045

== ENCOUNTER 2020-08-21 06:49 | Outpatient (CLI) | payer MEDICARE, MEDICAID ==
[~2020-08-21] VITALS: Ht 182.9 cm; Wt 89.5 kg
[~2020-08-21 06:49] MED LIST changes: +ASPI-1238 PO; -ASPI-983 PO; +TRM50T PO
[2020-08-22] MEDS ORDERED: FURO40TA4 PO (14:09)
[2020-08-22] MEDS ORDERED: INSU100I32 SQ (14:09)
[2020-08-22] MEDS ORDERED: ATOR10TA PO (14:09)
[2020-08-22] MEDS ORDERED: GUAI600T43 PO (14:09)
[2020-08-22] MEDS ORDERED: GABA300C PO ×2 (14:09)
[2020-08-22] MEDS ORDERED: ALBU2.5V4 INH (14:09)
[2020-08-22] MEDS ORDERED: METF-399 PO (14:09)
== END 2020-08-22 14:10 | disposition home or self-care (01) ==
LOC: PREOP 06:49
PROVIDERS: ATTEND Specialist
DX: Z01.818 Encounter for other preprocedural examination (principal)

== ENCOUNTER 2020-08-25 08:04 | Day surgery (SDC) | payer MEDICARE, MEDICAID ==
[~2020-08-25] VITALS: Ht 182.9 cm; Wt 89.5 kg
[~2020-08-25 08:04] MED LIST changes: +ALBU2.5V4 INH; +ATOR10TA PO; +FURO40TA4 PO; +GABA300C PO; +GUAI600T43 PO; +INSU100I32 SQ; +METF-399 PO
[2020-08-25 08:22] VITALS: BP 135/66
[2020-08-25] MEDS: TETRACAINE 0.5% OPHTH SOLN 4 ML BTL (SINGLE DOSE ONLY) OU PRN ×3 (08:23→08:35)
[2020-08-25] MEDS ORDERED: PHENYLEPHRINE 10% OPHTH (NEO-SYN) 5 ML BTL OU PRN (08:30)
[2020-08-25] MEDS ORDERED: TROPICAMIDE 1% OPH SOLN (MYDRIACYL) 15 ML BTL OU PRN (08:30)
[2020-08-25 09:08] VITALS: BP 135/66
--- NOTE | 2020-08-25 09:25 | Ophthalmologist Pre-Op Note ---
Pre-Operative Progress Note H&P Reviewed The H&P was reviewed, patient examined and no changes noted. Date H&P Reviewed: Aug 25, 2020 Time H&P Reviewed: 08:55 Pre-Op Dx Secondary Cataract, Right Eye HUI RAPHAEL MD Aug 25, 2020 09:25
--- NOTE | 2020-08-25 09:27 | Ophthalmology Operative Report ---
YAG Capsulotomy PREOPERATIVE DIAGNOSIS: Secondary Cataract Left Eye POSTOPERATIVE DIAGNOSIS: Secondary Cataract Left Eye PROCEDURE: YAG Capsulotomy, left eye SURGEON: Abiodun Raphael ANESTHESIA: Topical anesthesia COMPLICATIONS: None ESTIMATED BLOOD LOSS: Minimal DESCRIPTION OF PROCEDURE: After proper informed consent was obtained, the patient's, a 75 male left eye received one drop of Tropicamide and one drop of Tetracaine. The patient was then placed at the YAG laser and using a power of [4.5 ] millijoules and [ 25] bursts were used to fashion a central capsulotomy. The patient tolerated the procedure well without complications. ABIODUN RAPHAEL MD Aug 25, 2020 09:27
== END 2020-08-25 09:08 | disposition home or self-care (01) ==
LOC: SDC 08:04
PROVIDERS: ATTEND Specialist
DX: E11.36 Type 2 diabetes mellitus with diabetic cataract (principal); H26.492 Other secondary cataract, left eye; M19.90 Unspecified osteoarthritis, unspecified site